=== PATIENT | male | born 1970 | race Caucasian/White ===

== ENCOUNTER 2018-01-29 20:19 | Inpatient (IN) ==
--- NOTE | 2018-01-29 20:57 | ED ---
HPI General Chief complaint: Altered Mental Status Stated complaint: Evac/Ams Time Seen by Provider: 01/29/18 20:36 Source: patient and EMS Mode of arrival: EMS Limitations: altered mental status History of Present Illness HPI narrative: The patient is a 47 year old male who presents to the [facility] emergency department with a history of altered mentation noted by his family this evening prior to them calling ambulance services. The patient is visiting from out of town. The patient has a history of cirrhosis and according to ambulance services 2 weeks ago. The patient's family reported to ambulance services that the patient had been in bed all day at the [facility]. When they came back to check on him he had a decreased level of consciousness, therefore ambulance services were called. The patient on arrival has his eyes open with generalized weakness. The patient is able to state his name, however otherwise he is not able to provide any significant history. The patient's past medical history review of systems is difficult to obtain in this patient who appears confused and grossly jaundiced. The patient has not been at this facility in the past. The patient denies any recent alcohol use. He is unable to tell me when he last drank any alcohol. He cannot recall when he last took his medications. Fortunately, list of the patient's medications was provided to ambulance services by the family. 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 Medical History Medical History Cirrhosis (Acute) Social History Social History Substance History: Past History Second Hand Smoke Exposure: No Smoking Status: Unknown if ever smoked How Often Do You Have a Drink Containing Alcohol: Unable to Obtain Recent Travel in [facility] within the Last 8 Weeks: Yes Recent Out of Country Travel within the Last 8 Weeks: No Exam Const General: cooperative, ill appearing and other (Jaundiced appearing) Nutritional Appearance: well nourished Orientation: awake and confused Limitations: altered mental status [facility] Head: normocephalic and atraumatic Nose: no nasal discharge and no epistaxis Mouth: moist mucous membranes Eyes Sclera: scleral abnormality (The patient has scleral icterus noted.) Pupils: PERRL Neck Neck: trachea midline and no JVD Resp Effort & Inspection: no use of accessory muscles Auscultation: clear to auscultation bilaterally Cardio Rate: regular rate Rhythm: regular rhythm Heart Sounds: no murmurs GI Inspection: non-distended and other (The patient has a positive [place] sign with ecchymosis periumbilical.) Palpation: soft, hepatosplenomegaly and nontender Auscultation: normal bowel sounds Back/Spine/Pelvis Back: no CVA tenderness Skin General: dry skin (warm), turgor decreased and other (Jaundiced appearing) Neuro General: awake, confused and other (The patient is uncooperative with formal neurologic testing due to confusion and generalized weakness. He is able to move his arms and legs with equal strength that is diminished diffusely. The patient has no facial asymmetry. The patient is able to state his name, however he is not oriented to place, time, or situation otherwise. No tremulousness.) Extrem General: normal to inspection, no clubbing, no cyanosis and no edema Psych Mood: congruent mood Affect: normal affect Judgment: judgment good Course Hospital Course: During the course of the patient's emergency department visit, the patient's history, examination, and differential diagnosis were reviewed with the patient. The patient was placed on a cardiac sonographer with oximetry and frequent blood pressure monitoring. The patient had IV access obtained and blood work sent for analysis. A Cherry catheter will be placed to gravity. The patient was initially provided normal saline at 500 mL bolus 1. Reevaluation(s) Reevaluation #1: The patient was reexamined and is more awake and alert. The patient does continue to be confused. The patient's results were discussed with him including the plan for admission and he is agreeable with the plan Consultations Consultation #1: The patient's case including history, pertinent physical examination findings, and laboratory studies were discussed with Dr. Velazquez. It was agreed that the patient would be admitted to the hospitalist service. Time: 23:30 Initial Documented Vital Signs Temperature 98.2 F 01/29/18 20:39 Pulse Rate 76 01/29/18 20:39 Respiratory Rate 10 L 01/29/18 20:39 Blood Pressure 133/62 01/29/18 20:39 Pulse Oximetry 100 01/29/18 20:39 Last Documented Vital Signs Temperature 97.5 F L 01/30/18 18:46 Pulse Rate 80 01/30/18 19:56 Respiratory Rate 8 L 01/30/18 19:30 Blood Pressure 132/65 01/30/18 19:30 Pulse Oximetry 100 01/30/18 19:30 Critical Care Time Critical Care Time: Yes Total Critical Care Time: 34 Attestation: Aggregate critical care time was 34 minutes. Time to perform other separately billable procedures was not included in the critical care time. My time did not include minutes spent treating any other patients simultaneously or on activities that did not directly contribute to the patient's treatment. The services I provided to this patient were to treat and/or prevent clinically significant deterioration that could result in: Progression of encephalopathy, versus respiratory failure, versus cardiovascular collapse I provided critical care services requiring my management, as noted below: Chart data review, documentation time, medication orders and management, vital sign assessments/reviewing monitor data, ordering and reviewing lab tests, ordering and interpreting/reviewing x-rays and diagnostic studies, care of the patient and discussion of the patient with the admitting physicians. Medical Decision Making MDM Narrative Medical decision making narrative: The patient's diagnostic workup began with and evaluation for altered mentation to include an ammonia level, lactic acid with blood cultures, CT scan of the brain, chest x-ray, urinalysis by catheterization. The patient's blood sugar according to ambulance services was 127, ruling out hypoglycemia as a cause of his altered mentation. The patient's laboratory studies are remarkable for a hemoglobin is 9.3a white count of 5.5, platelets 49, and a differential remarkable for neutrophil predominance of 78.7. Lactic acid is 2.2, ammonia level is 178 which could be the cause of the patient's altered mentation. The patient was given lactulose p.o. Lipase is 282. A chest x-ray that shows no acute cardiopulmonary process. CMP is remarkable for a total bilirubin of 23.5, sodium 121, glucose 116, potassium 2.8, GFR 74, chloride 83, BUN 41, creatinine 1.07, anion gap 17, alk phos 118, ALT 92, AST is 80, PT 18.7, INR 1.8, PTT 40.1, urinalysis shows small occult blood, few mucus, small bilirubin, otherwise unremarkable. Urine drug screen is negative. The patient will be given p.o. potassium and started on IV fluids with potassium supplementation. The patient will be admitted to the hospital for evaluation of AMS, hepatic encephalopathy, hyponatremia, hypokalemia, and lacunar infarct. I had a lengthy discussion with the admitting hospitalist regarding giving aspirin for the patient's subacute lacunar infarct. She requested that I hold the aspirin at this time as the patient is thrombocytopenic with a coagulopathy related to his liver disease. The patient's results were discussed with the patient, including the plan of care. I explained that further testing and/ or monitoring is indicated based on the patient's history, examination, and/ or laboratory findings. Therefore, I recommended admission for additional evaluation. The patient expressed understanding and was agreeable with this plan. The patient was admitted to the hospital in guarded condition and sent to a bed under the care of [facility] service. Medical Records Medical records reviewed: Yes I reviewed the patient's medical records. Lab Data Lab results reviewed: Yes I reviewed the patient's lab results. Result diagrams: 01/30/18 07:42 01/30/18 07:42 Lab Results 01/29/18 01/29/18 01/29/18 Range/Units 20:45 20:45 20:45 WBC 5.5 (4.0-11.0) th/mm3 RBC 2.35 L (4.50-5.90) mil/mm3 Hgb 9.3 L (13.0-17.0) gm/dL Hct 24.9 L (39.0-51.0) % MCV 106.0 H (80.0-100.0) fL MCH 39.5 H (27.0-34.0) pg MCHC 37.2 H (32.0-36.0) % RDW 17.8 H (11.6-17.2) % Plt Count 49 L (150-450) th/mm3 MPV 8.1 (7.0-11.0) fL Prelim Diff (Auto) Slide review pending Neut % (Auto) 78.7 H (16.0-70.0) % Lymph % (Auto) 10.3 (9.0-44.0) % [place] % (Auto) 10.2 H (0.0-8.0) % Eos % (Auto) 0.6 (0.0-4.0) % Baso % (Auto) 0.2 (0.0-2.0) % Neut # (Auto) 4.4 (1.8-7.7) th/mm3 Lymph # (Auto) 0.6 L (1.0-4.8) th/mm3 [place] # (Auto) 0.6 (0.0-0.9) th/mm3 Eos # (Auto) 0.0 (0.0-0.4) th/mm3 Baso # (Auto) 0.0 (0.0-0.2) th/mm3 WBC Differential . Diff Scan Auto diff confirmed Differential Comment . Ovalocytes (None) Melissa Cells 1+ H (None) Acanthocytes (Spur) 1+ H (None) Keratocytes 1+ H (None) PT 18.7 H (9.8-11.6) sec INR 1.8 Ratio APTT 40.1 H (24.3-30.1) sec Puncture Site Patient Temperature O2 Saturation (90-100) % ABG pH (7.380-7.420) ABG pCO2 (38-42) mmHg ABG pO2 (61-120) mmHg ABG HCO3 (22-26) mmol/L ABG O2 Content (12.0-20.0) Vol % ABG Base Excess (-2-2) mmol/L ABG Methemoglobin (0-2) % Michael Test Hemoglobin (12.0-16.0) G/DL Carboxyhemoglobin (0-4) % Inspired O2 % Critical Value Sodium (136-145) meq/L Potassium (3.5-5.1) meq/L Chloride (98-107) meq/L Carbon Dioxide (21.0-32.0) meq/L Anion Gap (5-15) meq/L BUN (7-18) mg/dL Creatinine (0.60-1.30) mg/dL Estimated GFR (>89) mL/min POC Glucose (68-110) mg/dl Random Glucose (74-106) mg/dL Lactic Acid (0.4-2.0) mmol/L Calcium (8.5-10.1) mg/dL Magnesium (1.5-2.5) mg/dL Total Bilirubin (0.2-1.0) mg/dL AST (15-37) U/L ALT (12-78) U/L Alkaline Phosphatase (45-117) U/L Ammonia (11-32) mcmol/L Total Creatine Kinase (39-308) U/L Troponin I (0.02-0.05) ng/mL Total Protein (6.4-8.2) g/dL Albumin (3.4-5.0) g/dL Lipase (73-393) U/L TSH 0.853 (0.358-3.740) uIU/mL Urine Color (Yellw/Straw) Urine Clarity (Clear) Urine pH (5.0-8.5) Ur Specific [place] (1.002-1.035) Urine Protein (Neg-Trace) mg/dL Urine Glucose (UA) (Negative) mg/dL Urine Ketones (Negative) mg/dL Urine Occult Blood (Negative) Urine Nitrate (Negative) Urine Bilirubin (Negative) Urine Ictotest (Negative) Urine Urobilinogen (Less than 2) mg/dL Ur Leukocyte Esterase (Negative) Urine RBC (0-3) /hpf Urine WBC (0-5) /hpf Urine Mucus (Occasional) /lpf Micro UA Comment Urine Culture Comments Urine Opiates Screen (Neg) Ur Barbiturates Screen (Neg) Ur Amphetamines Screen (Neg) U Benzodiazepines Scrn (Neg) Urine Cocaine Screen (Neg) U Cannabinoids Screen (Neg) Serum Alcohol Less than 3 (0-5) mg/dL 01/29/18 01/29/18 01/29/18 Range/Units 20:45 20:45 20:53 WBC (4.0-11.0) th/mm3 RBC (4.50-5.90) mil/mm3 Hgb (13.0-17.0) gm/dL Hct (39.0-51.0) % MCV (80.0-100.0) fL MCH (27.0-34.0) pg MCHC (32.0-36.0) % RDW (11.6-17.2) % Plt Count (150-450) th/mm3 MPV (7.0-11.0) fL Prelim Diff (Auto) Neut % (Auto) (16.0-70.0) % Lymph % (Auto) (9.0-44.0) % [place] % (Auto) (0.0-8.0) % Eos % (Auto) (0.0-4.0) % Baso % (Auto) (0.0-2.0) % Neut # (Auto) (1.8-7.7) th/mm3 Lymph # (Auto) (1.0-4.8) th/mm3 [place] # (Auto) (0.0-0.9) th/mm3 Eos # (Auto) (0.0-0.4) th/mm3 Baso # (Auto) (0.0-0.2) th/mm3 WBC Differential Diff Scan Differential Comment Ovalocytes (None) [place] Cells (None) Acanthocytes (Spur) (None) Keratocytes (None) PT (9.8-11.6) sec INR Ratio APTT (24.3-30.1) sec Puncture Site Patient Temperature O2 Saturation (90-100) % ABG pH (7.380-7.420) ABG pCO2 (38-42) mmHg ABG pO2 (61-120) mmHg ABG HCO3 (22-26) mmol/L ABG O2 Content (12.0-20.0) Vol % ABG Base Excess (-2-2) mmol/L ABG Methemoglobin (0-2) % Mcihael Test Hemoglobin (12.0-16.0) G/DL Carboxyhemoglobin (0-4) % Inspired O2 % Critical Value Sodium 121 L* (136-145) meq/L Potassium 2.8 L* (3.5-5.1) meq/L Chloride 83 L (98-107) meq/L Carbon Dioxide 21.5 (21.0-32.0) meq/L Anion Gap 17 H (5-15) meq/L BUN 41 H (7-18) mg/dL Creatinine 1.07 (0.60-1.30) mg/dL Estimated GFR 74 L (>89) mL/min POC Glucose (68-110) mg/dl Random Glucose 116 H (74-106) mg/dL Lactic Acid 2.2 H (0.4-2.0) mmol/L Calcium 7.6 L (8.5-10.1) mg/dL Magnesium (1.5-2.5) mg/dL Total Bilirubin 23.5 H (0.2-1.0) mg/dL AST 80 H (15-37) U/L ALT 92 H (12-78) U/L Alkaline Phosphatase 118 H (45-117) U/L Ammonia (11-32) mcmol/L Total Creatine Kinase 33 L (39-308) U/L Troponin I 0.03 (0.02-0.05) ng/mL Total Protein 4.6 L (6.4-8.2) g/dL Albumin 2.2 L (3.4-5.0) g/dL Lipase 282 (73-393) U/L TSH (0.358-3.740) uIU/mL Urine Color (Yellw/Straw) Urine Clarity (Clear) Urine pH (5.0-8.5) Ur Specific [place] (1.002-1.035) Urine Protein (Neg-Trace) mg/dL Urine Glucose (UA) (Negative) mg/dL Urine Ketones (Negative) mg/dL Urine Occult Blood (Negative) Urine Nitrate (Negative) Urine Bilirubin (Negative) Urine Ictotest (Negative) Urine Urobilinogen (Less than 2) mg/dL Ur Leukocyte Esterase (Negative) Urine RBC (0-3) /hpf Urine WBC (0-5) /hpf Urine Mucus (Occasional) /lpf Micro UA Comment Urine Culture Comments Urine Opiates Screen (Neg) Ur Barbiturates Screen (Neg) Ur Amphetamines Screen (Neg) U Benzodiazepines Scrn (Neg) Urine Cocaine Screen (Neg) U Cannabinoids Screen (Neg) Serum Alcohol (0-5) mg/dL 01/29/18 01/29/18 01/29/18 Range/Units 20:53 21:30 21:30 WBC (4.0-11.0) th/mm3 RBC (4.50-5.90) mil/mm3 Hgb (13.0-17.0) gm/dL Hct (39.0-51.0) % MCV (80.0-100.0) fL MCH (27.0-34.0) pg MCHC (32.0-36.0) % RDW (11.6-17.2) % Plt Count (150-450) th/mm3 MPV (7.0-11.0) fL Prelim Diff (Auto) Neut % (Auto) (16.0-70.0) % Lymph % (Auto) (9.0-44.0) % [place] % (Auto) (0.0-8.0) % Eos % (Auto) (0.0-4.0) % Baso % (Auto) (0.0-2.0) % Neut # (Auto) (1.8-7.7) th/mm3 Lymph # (Auto) (1.0-4.8) th/mm3 [place] # (Auto) (0.0-0.9) th/mm3 Eos # (Auto) (0.0-0.4) th/mm3 Baso # (Auto) (0.0-0.2) th/mm3 WBC Differential Diff Scan Differential Comment Ovalocytes (None) Melissa Cells (None) Acanthocytes (Spur) (None) Keratocytes (None) PT (9.8-11.6) sec INR Ratio APTT (24.3-30.1) sec Puncture Site Patient Temperature O2 Saturation (90-100) % ABG pH (7.380-7.420) ABG pCO2 (38-42) mmHg ABG pO2 (61-120) mmHg ABG HCO3 (22-26) mmol/L ABG O2 Content (12.0-20.0) Vol % ABG Base Excess (-2-2) mmol/L ABG Methemoglobin (0-2) % Michael Test Hemoglobin (12.0-16.0) G/DL Carboxyhemoglobin (0-4) % Inspired O2 % Critical Value Sodium (136-145) meq/L Potassium (3.5-5.1) meq/L Chloride (98-107) meq/L Carbon Dioxide (21.0-32.0) meq/L Anion Gap (5-15) meq/L BUN (7-18) mg/dL Creatinine (0.60-1.30) mg/dL Estimated GFR (>89) mL/min POC Glucose (68-110) mg/dl Random Glucose (74-106) mg/dL Lactic Acid (0.4-2.0) mmol/L Calcium (8.5-10.1) mg/dL Magnesium (1.5-2.5) mg/dL Total Bilirubin (0.2-1.0) mg/dL AST (15-37) U/L ALT (12-78) U/L Alkaline Phosphatase (45-117) U/L Ammonia 178 H (11-32) mcmol/L Total Creatine Kinase (39-308) U/L Troponin I (0.02-0.05) ng/mL Total Protein (6.4-8.2) g/dL Albumin (3.4-5.0) g/dL Lipase (73-393) U/L TSH (0.358-3.740) uIU/mL Urine Color [place] (Yellw/Straw) Urine Clarity Clear (Clear) Urine pH 6.0 (5.0-8.5) Ur Specific [place] 1.011 (1.002-1.035) Urine Protein Negative (Neg-Trace) mg/dL Urine Glucose (UA) Negative (Negative) mg/dL Urine Ketones Negative (Negative) mg/dL Urine Occult Blood Small H (Negative) Urine Nitrate Negative (Negative) Urine Bilirubin Small H (Negative) Urine Ictotest Positive H (Negative) Urine Urobilinogen 4 or greater (Less than 2) mg/dL Ur Leukocyte Esterase Negative (Negative) Urine RBC Less than 1 (0-3) /hpf Urine WBC 1 (0-5) /hpf Urine Mucus Few H (Occasional) /lpf Micro UA Comment Cath-culture not ind Urine Culture Comments Cath-cult not ind Urine Opiates Screen Neg (Neg) Ur Barbiturates Screen Neg (Neg) Ur Amphetamines Screen Neg (Neg) U Benzodiazepines Scrn Neg (Neg) Urine Cocaine Screen Neg (Neg) U Cannabinoids Screen Neg (Neg) Serum Alcohol (0-5) mg/dL 01/30/18 01/30/18 01/30/18 Range/Units 00:15 07:42 07:42 WBC 6.1 (4.0-11.0) th/mm3 RBC 2.51 L (4.50-5.90) mil/mm3 Hgb 9.7 L (13.0-17.0) gm/dL Hct 26.4 L (39.0-51.0) % MCV 105.5 H (80.0-100.0) fL MCH 38.8 H (27.0-34.0) pg MCHC 36.8 H (32.0-36.0) % RDW 18.5 H (11.6-17.2) % Plt Count 53 L (150-450) th/mm3 MPV 7.7 (7.0-11.0) fL Prelim Diff (Auto) Slide review pending Neut % (Auto) 79.1 H (16.0-70.0) % Lymph % (Auto) 11.0 (9.0-44.0) % [place] % (Auto) 9.5 H (0.0-8.0) % Eos % (Auto) 0.2 (0.0-4.0) % Baso % (Auto) 0.2 (0.0-2.0) % Neut # (Auto) 4.8 (1.8-7.7) th/mm3 Lymph # (Auto) 0.7 L (1.0-4.8) th/mm3 [place] # (Auto) 0.6 (0.0-0.9) th/mm3 Eos # (Auto) 0.0 (0.0-0.4) th/mm3 Baso # (Auto) 0.0 (0.0-0.2) th/mm3 WBC Differential . Diff Scan Auto diff confirmed Differential Comment . Ovalocytes 1+ H (None) [place] Cells 1+ H (None) Acanthocytes (Spur) 2+ H (None) Keratocytes 1+ H (None) PT 19.2 H (9.8-11.6) sec INR 1.9 Ratio APTT (24.3-30.1) sec Puncture Site Patient Temperature O2 Saturation (90-100) % ABG pH (7.380-7.420) ABG pCO2 (38-42) mmHg ABG pO2 (61-120) mmHg ABG HCO3 (22-26) mmol/L ABG O2 Content (12.0-20.0) Vol % ABG Base Excess (-2-2) mmol/L ABG Methemoglobin (0-2) % Michael Test Hemoglobin (12.0-16.0) G/DL Carboxyhemoglobin (0-4) % Inspired O2 % Critical Value Sodium (136-145) meq/L Potassium (3.5-5.1) meq/L Chloride (98-107) meq/L Carbon Dioxide (21.0-32.0) meq/L Anion Gap (5-15) meq/L BUN (7-18) mg/dL Creatinine (0.60-1.30) mg/dL Estimated GFR (>89) mL/min POC Glucose (68-110) mg/dl Random Glucose (74-106) mg/dL Lactic Acid 1.8 (0.4-2.0) mmol/L Calcium (8.5-10.1) mg/dL Magnesium (1.5-2.5) mg/dL Total Bilirubin (0.2-1.0) mg/dL AST (15-37) U/L ALT (12-78) U/L Alkaline Phosphatase (45-117) U/L Ammonia (11-32) mcmol/L Total Creatine Kinase (39-308) U/L Troponin I (0.02-0.05) ng/mL Total Protein (6.4-8.2) g/dL Albumin (3.4-5.0) g/dL Lipase (73-393) U/L TSH (0.358-3.740) uIU/mL Urine Color (Yellw/Straw) Urine Clarity (Clear) Urine pH (5.0-8.5) Ur Specific [place] (1.002-1.035) Urine Protein (Neg-Trace) mg/dL Urine Glucose (UA) (Negative) mg/dL Urine Ketones (Negative) mg/dL Urine Occult Blood (Negative) Urine Nitrate (Negative) Urine Bilirubin (Negative) Urine Ictotest (Negative) Urine Urobilinogen (Less than 2) mg/dL Ur Leukocyte Esterase (Negative) Urine RBC (0-3) /hpf Urine WBC (0-5) /hpf Urine Mucus (Occasional) /lpf Micro UA Comment Urine Culture Comments Urine Opiates Screen (Neg) Ur Barbiturates Screen (Neg) Ur Amphetamines Screen (Neg) U Benzodiazepines Scrn (Neg) Urine Cocaine Screen (Neg) U Cannabinoids Screen (Neg) Serum Alcohol (0-5) mg/dL 01/30/18 01/30/18 01/30/18 Range/Units 07:42 10:23 17:43 WBC (4.0-11.0) th/mm3 RBC (4.50-5.90) mil/mm3 Hgb (13.0-17.0) gm/dL Hct (39.0-51.0) % MCV (80.0-100.0) fL MCH (27.0-34.0) pg MCHC (32.0-36.0) % RDW (11.6-17.2) % Plt Count (150-450) th/mm3 MPV (7.0-11.0) fL Prelim Diff (Auto) Neut % (Auto) (16.0-70.0) % Lymph % (Auto) (9.0-44.0) % [place] % (Auto) (0.0-8.0) % Eos % (Auto) (0.0-4.0) % Baso % (Auto) (0.0-2.0) % Neut # (Auto) (1.8-7.7) th/mm3 Lymph # (Auto) (1.0-4.8) th/mm3 [place] # (Auto) (0.0-0.9) th/mm3 Eos # (Auto) (0.0-0.4) th/mm3 Baso # (Auto) (0.0-0.2) th/mm3 WBC Differential Diff Scan Differential Comment Ovalocytes (None) [place] Cells (None) Acanthocytes (Spur) (None) Keratocytes (None) PT (9.8-11.6) sec INR Ratio APTT (24.3-30.1) sec Puncture Site Right radial Patient Temperature 98.6 O2 Saturation 95 (90-100) % ABG pH 7.54 H* (7.380-7.420) ABG pCO2 26 L (38-42) mmHg ABG pO2 88 (61-120) mmHg ABG HCO3 22 (22-26) mmol/L ABG O2 Content 12.0 (12.0-20.0) Vol % ABG Base Excess -0.5 (-2-2) mmol/L ABG Methemoglobin 0.0 (0-2) % Michael Test Present Hemoglobin 8.9 L (12.0-16.0) G/DL Carboxyhemoglobin 3.3 (0-4) % Inspired O2 21 % Critical Value Yes Sodium 125 L (136-145) meq/L Potassium 3.1 L (3.5-5.1) meq/L Chloride 90 L (98-107) meq/L Carbon Dioxide 22.5 (21.0-32.0) meq/L Anion Gap 13 (5-15) meq/L BUN 44 H (7-18) mg/dL Creatinine 1.24 (0.60-1.30) mg/dL Estimated GFR 62 L (>89) mL/min POC Glucose 135 H (68-110) mg/dl Random Glucose 115 H (74-106) mg/dL Lactic Acid (0.4-2.0) mmol/L Calcium 7.7 L (8.5-10.1) mg/dL Magnesium 2.4 (1.5-2.5) mg/dL Total Bilirubin 23.6 H (0.2-1.0) mg/dL AST 79 H (15-37) U/L ALT 95 H (12-78) U/L Alkaline Phosphatase 120 H (45-117) U/L Ammonia (11-32) mcmol/L Total Creatine Kinase (39-308) U/L Troponin I (0.02-0.05) ng/mL Total Protein 4.7 L (6.4-8.2) g/dL Albumin 2.3 L (3.4-5.0) g/dL Lipase (73-393) U/L TSH (0.358-3.740) uIU/mL Urine Color (Yellw/Straw) Urine Clarity (Clear) Urine pH (5.0-8.5) Ur Specific [place] (1.002-1.035) Urine Protein (Neg-Trace) mg/dL Urine Glucose (UA) (Negative) mg/dL Urine Ketones (Negative) mg/dL Urine Occult Blood (Negative) Urine Nitrate (Negative) Urine Bilirubin (Negative) Urine Ictotest (Negative) Urine Urobilinogen (Less than 2) mg/dL Ur Leukocyte Esterase (Negative) Urine RBC (0-3) /hpf Urine WBC (0-5) /hpf Urine Mucus (Occasional) /lpf Micro UA Comment Urine Culture Comments Urine Opiates Screen (Neg) Ur Barbiturates Screen (Neg) Ur Amphetamines Screen (Neg) U Benzodiazepines Scrn (Neg) Urine Cocaine Screen (Neg) U Cannabinoids Screen (Neg) Serum Alcohol (0-5) mg/dL Imaging Data Radiologist's impression: Chest X-Ray 01/29/18 20:46 CONCLUSION: No acute cardiopulmonary process. Head CT 01/29/18 20:46 CONCLUSION: 1. Small area of low density in the medial right basal ganglia likely related to a recent lacunar infarct. 2. Mild area of decreased density in the left cerebral white matter representing either a prior lacunar infarct or an area of demyelination. 3. No acute areas of hemorrhage or mass effect is seen. Carotid Doppler Study 01/30/18 00:00 CONCLUSION: No evidence of flow-limiting carotid stenosis. ECG Data Attestation: I personally reviewed and interpreted this ECG as follows: Interpretation: The patient had an EKG done on arrival that shows a sinus rhythm with occasional ventricular premature complexes heart rate of 78, QRS duration 114 ms, QTC [address] segment elevation. Discharge Plan Discharge Disposition Patient Disposition: 30 Still Patient Discharge Details Diagnosis: Altered mental status, Acute hepatic encephalopathy, Acute hyponatremia, Acute hypokalemia, Lacunar infarction Physicians Team ED Provider: Shwetha Leblanc Primary Care Provider: Primary Care Lala Mauricio Attending Provider: Corby Rivera Other Providers: Mike Martel ; Killian Dyer ; Rajinder Melendez ; Jorge Alberto Klein Status ED Status: Left Department Discharge Information Discharge Date/Time: 01/30/18 18:59
[2018-01-29] MEDS ORDERED: Sod Chloride 0.9% Inj 1,000 ML IV.CONT SCH (21:00)
[2018-01-29 21:27] LABS: Baso % (Auto) 0.2 % (0.0-2.0); Eos % (Auto) 0.6 % (0.0-4.0); Hematocrit 24.9 % (39.0-51.0); Hemoglobin 9.3 gm/dL (13.0-17.0); Lymph # (Auto) 0.6 th/mm3 (1.0-4.8); Lymph % (Auto) 10.3 % (9.0-44.0); Mean Corpuscular Hemoglobin 39.5 pg (27.0-34.0); Mean Platelet Volume 8.1 fL (7.0-11.0); Mono # (Auto) 0.6 th/mm3 (0.0-0.9); Mono % (Auto) 10.2 % (0.0-8.0); Neut # (Auto) 4.4 th/mm3 (1.8-7.7); Neut % (Auto) 78.7 % (16.0-70.0); Platelet Count 49 th/mm3 (150-450); Red Blood Count 2.35 mil/mm3 (4.50-5.90); Red Cell Distribution Width 17.8 % (11.6-17.2); White Blood Count 5.5 th/mm3 (4.0-11.0)
--- NOTE | 2018-01-29 21:27 | XR ---
EXAM DATE: 01/29/2018 9:20 PM EDT AGE/SEX: 47 years / Male INDICATIONS: Shortness of breath. CLINICAL DATA: This is the patient's initial encounter. Patient reports that signs and symptoms have been present for 1 day and indicates a pain score of Nonresponsive. MEDICAL/SURGICAL HISTORY: Cirrhosis. None. COMPARISON: No prior exams available for comparison. FINDINGS: A single AP view of the chest demonstrates the lungs to be symmetrically aerated without evidence of mass, infiltrate or effusion. The cardiomediastinal contours are unremarkable. Osseous structures a re intact. CONCLUSION: No acute cardiopulmonary process. Electronically signed by: Kelvin Ortega MD 01/29/2018 9:26 PM EDT
[2018-01-29 21:29] LABS: Mean Corpuscular HGB Conc 37.2 % (32.0-36.0)
[2018-01-29 21:48] LABS: Thyroid Stimulating Hormone 0.853 uIU/mL (0.358-3.740)
[2018-01-29 22:00] LABS: Activated Partial Thrombo Time 40.1 sec (24.3-30.1); INR 1.8 Ratio; Prothrombin Time 18.7 sec (9.8-11.6)
[2018-01-29 22:02] LABS: Burr Cells 1+
[2018-01-29 22:06] LABS: Acanthocytes 1+
--- NOTE | 2018-01-29 22:17 | CT ---
EXAM DATE: 01/29/2018 10:11 PM EDT AGE/SEX: 47 years / Male INDICATIONS: Altered mental status. CLINICAL DATA: This is the patient's initial encounter. Patient reports that signs and symptoms have been present for 1 day and indicates a pain score of Nonresponsive. MEDICAL/SURGICAL HISTORY: Cirrhosis. jaundice None. RADIATION DOSE: 35.93 CTDI (mGy) COMPARISON: No prior exams available for comparison. TECHNIQUE: CT of the head without contrast. Using automated exposure control and adjustment of the mA and/or kV according to patient size, radiation dose was kept as low as reasonably achievable to ob tain optimal diagnostic quality images. DICOM format image data is available electronically for revi ew and comparison. FINDINGS: Cerebrum: There is a small 0.7 cm hypodensity seen in the medial aspect of the right basal ganglia. There is a 1 cm area of low density seen in the left cerebral white matter. The ventricles are normal for age. No evidence of midline shift, mass lesion, hemorrhage. No extraaxial fluid collections ar e seen. Posterior Fossa: The cerebellum and brainstem are intact. The 4th ventricle is midline. The cerebe llopontine angle is unremarkable. Extracranial: The visualized portion of the orbits is intact. Skull: The calvaria is intact. No evidence of skull fracture. CONCLUSION: 1. Small area of low density in the medial right basal ganglia likely related to a recent lacunar in farct. 2. Mild area of decreased density in the left cerebral white matter representing either a prior lacu alicia infarct or an area of demyelination. 3. No acute areas of hemorrhage or mass effect is seen. Electronically signed by: Kelvin Ortega MD 01/29/2018 10:16 PM EDT
[2018-01-29 22:19] LABS: Amphetamine Screen,Urine Neg (Neg); Barbiturate Screen,Urine Neg (Neg); Cannabinoid Screen,Urine Neg (Neg); Cocaine Screen,Urine Neg (Neg)
[2018-01-29 22:20] LABS: Bilirubin,Urine Small (Negative); Clarity,Urine Clear (Clear); Color,Urine Amber (Yellw/Straw); Glucose,Urine (UA) Negative (Negative); Ictotest,Urine Positive (Negative); Leukocyte Esterase,Urine Negative (Negative); Mucus,Urine Few /lpf (Occasional); Nitrite,Urine Negative (Negative); Specific Gravity,Urine 1.011 (1.002-1.035); Urobilinogen,Urine 4 or Greater mg/dL (Less than 2)
[2018-01-29 22:22] LABS: Opiate Screen,Urine Neg (Neg)
[2018-01-29 22:50] LABS: Alanine Aminotransferase 92 U/L (12-78); Albumin 2.2 g/dL (3.4-5.0); Alkaline Phosphatase 118 U/L (45-117); Anion Gap 17 meq/L (5-15); Aspartate Aminotransferase 80 U/L (15-37); Blood Urea Nitrogen 41 mg/dL (7-18); Calcium 7.6 mg/dL (8.5-10.1); Carbon Dioxide 21.5 meq/L (21.0-32.0); Chloride 83 meq/L (98-107); Glomerular Filtration Rate 74 mL/min (>89); Glucose,Random 116 mg/dL (74-106); Total Protein 4.6 g/dL (6.4-8.2); Troponin I 0.03 ng/mL (0.02-0.05)
[2018-01-29 22:54] LABS: Creatine Kinase 33 U/L (39-308)
[2018-01-29 22:57] LABS: Potassium 2.8 meq/L (3.5-5.1); Sodium 121 meq/L (136-145)
[2018-01-29] MEDS ORDERED: Potassium Chloride 25 MEQ Effervescent Tablet PO ONE (23:09)
[2018-01-29] MEDS ORDERED: Dextrose 5%/NaCl 0.45% Inj 500 ML IV.SIG ONE (23:36)
[2018-01-29] MEDS ORDERED: Temazepam 15 MG Capsule PO PRN (23:36)
[2018-01-29] MEDS ORDERED: Bisacodyl 10 MG Supp RECTAL PRN (23:36)
--- NOTE | 2018-01-29 23:39 | P.HPIM ---
History of Present Illness Primary Care Physician: No Primary Care Physician History of Present Illness: This is a 47-year-old male with a PMH of Cirrhosis who was brought to the ER for AMS. [place], [place]/ and family. at bedside states pt noted to be more lethargic today, reports he is non-compliant w/ Lactulose, does not follow w/ GI doctor back home. Previous h/o Alcohol Abuse, however states he quit. Unable to obtain much history from patient due to AMS, however he is able to answer few questions. On arrival, BP 133/62, HR 76, O2 sat 100% on 2L NC, Afebrile. Hemoglobin 9.3, platelets 49, no previous labs for comparison. INR 1.8. Na 121. K+ 2.8. Lactic Acid 2.2. Ammonia 178. Total Bili 23.5. CT Head w/ small area low density medial right basal ganglia related to recent lacunar infarct, left cerebral infarct vs demyelination. - Diagnosis (1) Hepatic encephalopathy (2) Cirrhosis (3) Hyponatremia (4) Hypokalemia (5) CVA (cerebral vascular accident) (6) Thrombocytopenia Inpatient Certification: I certify that the inpatient services were ordered in accordance with Medicare regulations governing the order. 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 - Medical History Medical History: Medical History (Last Reviewed 01/29/18 @ 20:52 by Shwetha Leblanc MD) Cirrhosis - Tobacco History Smoking Status: Never smoker - Alcohol History How Often Do You Have a Drink Containing Alcohol: Never - Substance Use History Substance History: No History of Abuse - Travel History Recent Travel in the [place] Within the Last 8 Weeks: No Recent Travel Out of the Country Within the Last 8 Weeks: No - Immunization History Tetanus Immunization: Unsure Hx Influenza Vaccine This Season: No Medications and Allergies Active Medications: Active Medications Sodium Chloride (Ns Inj) 1,000 mls @ 125 mls/hr IV.CONT .Q8H DELANO Last Admin: 01/29/18 22:16 Dose: 125 mls/hr Potassium Chloride/Sodium Chloride (Ns + Kcl 20 Meq Inj) 1,000 mls @ 100 mls/ hr IV.CONT .Q10H DELANO Sodium Chloride (Ns Flush) 2 ml IV.FLUSH PRN PRN PRN Reason: FLUSH AFTER USING IV ACCESS Allergies Allergy/AdvReac Type Severity Reaction Status Date / Time No Known Allergies Allergy Unverified 01/29/18 20:46 Home Medications Medication Instructions Recorded Confirmed Type folic acid 1 mg PO DAILY 01/29/18 01/29/18 History furosemide 40 mg PO DAILY 01/29/18 01/29/18 History hydrochlorothiazide 25 mg PO DAILY 01/29/18 01/29/18 History lactulose 20 g PO BID 01/29/18 01/29/18 History Exam Vital signs: Vital Signs 01/29/18 20:39 01/29/18 20:47 01/29/18 23:00 Temperature 98.2 F 97.8 F Pulse Rate 76 72 Respiratory Rate 10 L 10 L Blood Pressure 133/62 134/64 Pulse Oximetry 100 100 100 Intake & Output 01/29/18 01/29/18 01/30/18 06:59 18:59 06:59 Weight 79.379 kg Narrative: PE: GENERAL: Middle-aged white male in no acute distress. at bedside. HEENT: PERRLA, EOMI. No scleral icterus or conjunctival pallor. No lid lag or facial droop. CARDIOVASCULAR: Regular rate and rhythm. No obvious murmurs to auscultation. No chest tenderness to palpation. RESPIRATORY: No obvious rhonchi or wheezing. Clear to auscultation. Breath sounds equal bilaterally. GASTROINTESTINAL: Abdomen soft, non-tender, nondistended. BS normal. MUSCULOSKELETAL: Extremities without clubbing, cyanosis, or edema. No obvious deformities. NEUROLOGICAL: Awake, but confused, answering few questions. No focal neurologic deficits. Moving both upper and lower extremities spontaneously. Results - Labs CBC & Chem 7: 01/29/18 20:45 01/29/18 20:45 Labs: Short CBC 01/29/18 Range/Units 20:45 WBC 5.5 (4.0-11.0) th/mm3 Hgb 9.3 L (13.0-17.0) gm/dL Hct 24.9 L (39.0-51.0) % Plt Count 49 L (150-450) th/mm3 BMP 01/29/18 20:45 Sodium 121 L* Potassium 2.8 L* Chloride 83 L Carbon Dioxide 21.5 BUN 41 H Creatinine 1.07 Calcium 7.6 L Cardiac Enzymes 01/29/18 Range/Units 20:45 Total Creatine Kinase 33 L (39-308) U/L Troponin I 0.03 (0.02-0.05) ng/mL Liver Function 01/29/18 Range/Units 20:45 Total Bilirubin 23.5 H (0.2-1.0) mg/dL AST 80 H (15-37) U/L ALT 92 H (12-78) U/L Alkaline Phosphatase 118 H (45-117) U/L Albumin 2.2 L (3.4-5.0) g/dL Urine 01/29/18 Range/Units 21:30 Urine Color [place] (Yellw/Straw) Urine Clarity Clear (Clear) Urine pH 6.0 (5.0-8.5) Ur Specific [place] 1.011 (1.002-1.035) Urine Protein Negative (Neg-Trace) mg/dL Urine Glucose (UA) Negative (Negative) mg/dL - Imaging Impressions Chest X-Ray 01/29/18 20:46 CONCLUSION: No acute cardiopulmonary process. Head CT 01/29/18 20:46 CONCLUSION: 1. Small area of low density in the medial right basal ganglia likely related to a recent lacunar infarct. 2. Mild area of decreased density in the left cerebral white matter representing either a prior lacunar infarct or an area of demyelination. 3. No acute areas of hemorrhage or mass effect is seen. Caprini VTE Risk Assessment Caprini VTE Risk Assessment: No/Low Risk (score <= 1) VTE Pharmacological Exception Reason: High risk for bleeding Caprini Risk Assessment Model: Point Value = 1 Point Value = 2 Point Value = 3 Point Value = 5 Age 41-60 Minor surgery BMI > 25 kg/m2 Swollen legs Varicose veins or History of unexplained or recurrent spontaneous Oral contraceptives or hormone replacement Sepsis (< 1 month) Serious lung disease, including pneumonia (< 1 month) Abnormal pulmonary function Acute myocardial infarction Congestive heart failure (< 1 month) History of inflammatory bowel disease Medical patient at bed rest Age 61-74 Arthroscopic surgery Major open surgery (> 45 min) Laparoscopic surgery (> 45 min) Malignancy Confined to bed (> 72 hours) Immobilizing plaster cast Central venous access Age >= 75 History of VTE Family history of VTE Factor V Leiden Prothrombin [id number] Lupus anticoagulant Anticardiolipin antibodies Elevated serum homocysteine Heparin-induced thrombocytopenia Other congenital or acquired thrombophilia Stroke (< 1 month) Elective arthroplasty Hip, pelvis, or leg fracture Acute spinal cord injury (< 1 month) Prophylaxis Regimen: Total Risk Factor Score Risk Level Prophylaxis Regimen 0-1 Low Early ambulation 2 Moderate Order ONE of the following: *Sequential Compression Device (SCD) *Heparin 5000 units SQ BID 3-4 Higher Order ONE of the following medications: *Heparin 5000 units SQ TID *Enoxaparin/Lovenox 40 mg SQ daily (WT < 150 kg, CrCl > 30 mL/min) *Enoxaparin/Lovenox 30 mg SQ daily (WT < 150 kg, CrCl > 10-29 mL/min) *Enoxaparin/Lovenox 30 mg SQ BID (WT < 150 kg, CrCl > 30 mL/min) AND/OR *Sequential Compression Device (SCD) 5 or more Highest Order ONE of the following medications: *Heparin 5000 units SQ TID (Preferred with Epidurals) *Enoxaparin/Lovenox 40 mg SQ daily (WT < 150 kg, CrCl > 30 mL/min) *Enoxaparin/Lovenox 30 mg SQ daily (WT < 150 kg, CrCl > 10-29 mL/min) *Enoxaparin/Lovenox 30 mg SQ BID (WT < 150 kg, CrCl > 30 mL/min) AND *Sequential Compression Device (SCD) Assessment and Plan - Assessment (1) Hepatic encephalopathy Code(s): K72.90 - Hepatic failure, unspecified without coma Status: Acute (2) Cirrhosis Code(s): K74.60 - Unspecified cirrhosis of liver Status: Acute (3) Hyponatremia Code(s): E87.1 - Hypo-osmolality and hyponatremia Status: Acute (4) Hypokalemia Code(s): E87.6 - Hypokalemia Status: Acute (5) CVA (cerebral vascular accident) Code(s): I63.9 - Cerebral infarction, unspecified Status: Acute (6) Thrombocytopenia Code(s): D69.6 - Thrombocytopenia, unspecified Status: Acute - Plan A/P: 1. Hepatic Encephalopathy: h/o Cirrhosis, non-compliant w/ medications, Ammonia 178, s/p Lactulose, remains confused/lethargic. Continue w/ Lactulose, Neuro checks. 2. Cirrhosis: h/o Cirrhosis secondary to Alcohol Abuse, does not follow w/ GI back home in [place] per , start Lactulose as above, Aldactone/Lasix, Propranolol. Total bili 24, LFTs mildly elevated. Consult GI for further eval/ recommendations as needed. 3. Hyponatremia: Na 121, likely due to cirrhosis/dehydration, monitor I/O, Seizure Precautions, repeat labs in am. 4. Hypokalemia: K+ 2.8, s/p replacement, will recheck and replace as needed. 5. CVA: CT Head w/ recent small right basal ganglia lacunar infarct, left lacunar infarct vs demyelination, images reviewed by me. Hold ASA in light of significant coagulopathy and thrombocytopenia. Consult Neurology as needed. Neuro checks. 6. Thrombocytopenia: Platelets 49, no previous labs for comparison, presumably chronic in light of extensive cirrhosis/coagulopathy. No active bleeding noted. Repeat labs in am. 7. DVT Prophylaxis: Pharmacologic contraindication due to coagulopathy/ thrombocytopenia. 8. Social work for d/c planning as needed. 9. Case discussed w/ ER physician at length, labs/records/imaging reviewed by me.
[2018-01-30 08:43] LABS: INR 1.9 Ratio; Prothrombin Time 19.2 sec (9.8-11.6)
--- NOTE | 2018-01-30 08:50 | P.PN ---
Subjective Interval history: F/U encephalopathy. Comatose no gag reflex. Dw pt does not want to be intubated. Physical Exam Vital signs: Vital Signs 01/29/18 20:39 01/29/18 20:47 01/29/18 23:00 Temperature 98.2 F 97.8 F Pulse Rate 76 72 74 Respiratory Rate 10 L 10 L 12 Blood Pressure 133/62 134/64 126/61 Pulse Oximetry 100 100 100 01/30/18 01:00 01/30/18 05:00 01/30/18 08:24 Temperature 98.7 F Pulse Rate 76 80 78 Respiratory Rate 10 L 10 L 17 Blood Pressure 116/58 L 113/59 L 114/56 L Pulse Oximetry 100 Intake & Output 01/29/18 01/30/18 01/30/18 18:59 06:59 18:59 Weight 79.379 kg Narrative: GENERAL: Middle-aged white male who is comatose HEENT: + scleral icterus. No lid lag or facial droop. CARDIOVASCULAR: Regular rate and rhythm. No obvious murmurs to auscultation. No chest tenderness to palpation. RESPIRATORY: No obvious rhonchi or wheezing. Clear to auscultation. Decreased Breath sounds equal bilaterally. GASTROINTESTINAL: Abdomen soft, non-tender, nondistended. BS normal. MUSCULOSKELETAL: Extremities without clubbing, cyanosis, obvious deformities. NEUROLOGICAL: Comatose GCS 7 - Urinary Catheter Management Indwelling Urethral Catheter Cath placed during this visit: no Reason for continuing: Hourly intake/output Results - Labs CBC & Chem 7: 01/30/18 07:42 01/30/18 07:42 Laboratory Results - last 24 hr 01/29/18 01/29/18 01/29/18 20:45 20:45 20:45 WBC 5.5 RBC 2.35 L Hgb 9.3 L Hct 24.9 L MCV 106.0 H MCH 39.5 H MCHC 37.2 H RDW 17.8 H Plt Count 49 L MPV 8.1 Prelim Diff (Auto) Slide review pending Neut % (Auto) 78.7 H Lymph % (Auto) 10.3 [place] % (Auto) 10.2 H Eos % (Auto) 0.6 Baso % (Auto) 0.2 Neut # (Auto) 4.4 Lymph # (Auto) 0.6 L [place] # (Auto) 0.6 Eos # (Auto) 0.0 Baso # (Auto) 0.0 WBC Differential . Diff Scan Auto diff confirmed Differential Comment . [place] Cells 1+ H Acanthocytes (Spur) 1+ H Keratocytes 1+ H PT 18.7 H INR 1.8 APTT 40.1 H Sodium Potassium Chloride Carbon Dioxide Anion Gap BUN Creatinine Estimated GFR Random Glucose Lactic Acid Calcium Total Bilirubin AST ALT Alkaline Phosphatase Ammonia Total Creatine Kinase Troponin I Total Protein Albumin Lipase TSH 0.853 Urine Color Urine Clarity Urine pH Ur Specific [place] Urine Protein Urine Glucose (UA) Urine Ketones Urine Occult Blood Urine Nitrate Urine Bilirubin Urine Ictotest Urine Urobilinogen Ur Leukocyte Esterase Urine RBC Urine WBC Urine Mucus Micro UA Comment Urine Culture Comments Urine Opiates Screen Ur Barbiturates Screen Ur Amphetamines Screen U Benzodiazepines Scrn Urine Cocaine Screen U Cannabinoids Screen Serum Alcohol Less than 3 01/29/18 01/29/18 01/29/18 20:45 20:45 20:53 WBC RBC Hgb Hct MCV MCH MCHC RDW Plt Count MPV Prelim Diff (Auto) Neut % (Auto) Lymph % (Auto) [place] % (Auto) Eos % (Auto) Baso % (Auto) Neut # (Auto) Lymph # (Auto) [place] # (Auto) Eos # (Auto) Baso # (Auto) WBC Differential Diff Scan Differential Comment [place] Cells Acanthocytes (Spur) Keratocytes PT INR APTT Sodium 121 L* Potassium 2.8 L* Chloride 83 L Carbon Dioxide 21.5 Anion Gap 17 H BUN 41 H Creatinine 1.07 Estimated GFR 74 L Random Glucose 116 H Lactic Acid 2.2 H Calcium 7.6 L Total Bilirubin 23.5 H AST 80 H ALT 92 H Alkaline Phosphatase 118 H Ammonia Total Creatine Kinase 33 L Troponin I 0.03 Total Protein 4.6 L Albumin 2.2 L Lipase 282 TSH Urine Color Urine Clarity Urine pH Ur Specific [place] Urine Protein Urine Glucose (UA) Urine Ketones Urine Occult Blood Urine Nitrate Urine Bilirubin Urine Ictotest Urine Urobilinogen Ur Leukocyte Esterase Urine RBC Urine WBC Urine Mucus Micro UA Comment Urine Culture Comments Urine Opiates Screen Ur Barbiturates Screen Ur Amphetamines Screen U Benzodiazepines Scrn Urine Cocaine Screen U Cannabinoids Screen Serum Alcohol 01/29/18 01/29/18 01/29/18 20:53 21:30 21:30 WBC RBC Hgb Hct MCV MCH MCHC RDW Plt Count MPV Prelim Diff (Auto) Neut % (Auto) Lymph % (Auto) [place] % (Auto) Eos % (Auto) Baso % (Auto) Neut # (Auto) Lymph # (Auto) [place] # (Auto) Eos # (Auto) Baso # (Auto) WBC Differential Diff Scan Differential Comment [place] Cells Acanthocytes (Spur) Keratocytes PT INR APTT Sodium Potassium Chloride Carbon Dioxide Anion Gap BUN Creatinine Estimated GFR Random Glucose Lactic Acid Calcium Total Bilirubin AST ALT Alkaline Phosphatase Ammonia 178 H Total Creatine Kinase Troponin I Total Protein Albumin Lipase TSH Urine Color [place] Urine Clarity Clear Urine pH 6.0 Ur Specific [place] 1.011 Urine Protein Negative Urine Glucose (UA) Negative Urine Ketones Negative Urine Occult Blood Small H Urine Nitrate Negative Urine Bilirubin Small H Urine Ictotest Positive H Urine Urobilinogen 4 or greater Ur Leukocyte Esterase Negative Urine RBC Less than 1 Urine WBC 1 Urine Mucus Few H Micro UA Comment Cath-culture not ind Urine Culture Comments Cath-cult not ind Urine Opiates Screen Neg Ur Barbiturates Screen Neg Ur Amphetamines Screen Neg U Benzodiazepines Scrn Neg Urine Cocaine Screen Neg U Cannabinoids Screen Neg Serum Alcohol 01/30/18 01/30/18 00:15 07:42 WBC RBC Hgb Hct MCV MCH MCHC RDW Plt Count MPV Prelim Diff (Auto) Neut % (Auto) Lymph % (Auto) [place] % (Auto) Eos % (Auto) Baso % (Auto) Neut # (Auto) Lymph # (Auto) [place] # (Auto) Eos # (Auto) Baso # (Auto) WBC Differential Diff Scan Differential Comment [place] Cells Acanthocytes (Spur) Keratocytes PT 19.2 H INR 1.9 APTT Sodium Potassium Chloride Carbon Dioxide Anion Gap BUN Creatinine Estimated GFR Random Glucose Lactic Acid 1.8 Calcium Total Bilirubin AST ALT Alkaline Phosphatase Ammonia Total Creatine Kinase Troponin I Total Protein Albumin Lipase TSH Urine Color Urine Clarity Urine pH Ur Specific [place] Urine Protein Urine Glucose (UA) Urine Ketones Urine Occult Blood Urine Nitrate Urine Bilirubin Urine Ictotest Urine Urobilinogen Ur Leukocyte Esterase Urine RBC Urine WBC Urine Mucus Micro UA Comment Urine Culture Comments Urine Opiates Screen Ur Barbiturates Screen Ur Amphetamines Screen U Benzodiazepines Scrn Urine Cocaine Screen U Cannabinoids Screen Serum Alcohol - Imaging Impressions Chest X-Ray 01/29/18 20:46 CONCLUSION: No acute cardiopulmonary process. Head CT 01/29/18 20:46 CONCLUSION: 1. Small area of low density in the medial right basal ganglia likely related to a recent lacunar infarct. 2. Mild area of decreased density in the left cerebral white matter representing either a prior lacunar infarct or an area of demyelination. 3. No acute areas of hemorrhage or mass effect is seen. - Procedures none Assessment and Plan - Assessment (1) Hepatic encephalopathy Code(s): K72.90 - Hepatic failure, unspecified without coma Status: Acute (2) Cirrhosis Code(s): K74.60 - Unspecified cirrhosis of liver Status: Acute (3) Hyponatremia Code(s): E87.1 - Hypo-osmolality and hyponatremia Status: Acute (4) Hypokalemia Code(s): E87.6 - Hypokalemia Status: Acute (5) CVA (cerebral vascular accident) Code(s): I63.9 - Cerebral infarction, unspecified Status: Acute (6) Thrombocytopenia Code(s): D69.6 - Thrombocytopenia, unspecified Status: Acute - Plan 1. Hepatic Encephalopathy: h/o Cirrhosis, non-compliant w/ medications, Ammonia 178, s/p Lactulose. He is comatose. Continue w/ Lactulose switch to enema, Neuro checks. Check ABG, pt is a DNI. Bipap prn 2. Cirrhosis: h/o Cirrhosis secondary to Alcohol Abuse, does not follow w/ GI back home in [place] per , start Lactulose as above, Aldactone, Propranolol. Consider Lasix when hyponatremia improves. Total bili 24, LFTs mildly elevated. Consult GI for further eval/recommendations as needed. 3. Hyponatremia: Na 121, likely due to cirrhosis/dehydration, monitor I/O, Seizure Precautions, repeat labs in am. 4. Hypokalemia: K+ 2.8, s/p replacement, will recheck and replace as needed. K 3.1 replace per protocol 5. CVA: CT Head w/ recent small right basal ganglia lacunar infarct, left lacunar infarct vs demyelination, images reviewed by me. Hold ASA in light of significant coagulopathy and thrombocytopenia. Consult Neurology as needed. Neuro checks. 6. Thrombocytopenia: Platelets 49, no previous labs for comparison, presumably chronic in light of extensive cirrhosis/coagulopathy. No active bleeding noted. Repeat labs in am. 7. DVT Prophylaxis: Pharmacologic contraindication due to coagulopathy/ thrombocytopenia. He is critically ill transfer to ICU. Consult CCM dw Dr Ribeiro and consult palliative care
[2018-01-30 08:57] LABS: Albumin 2.3 g/dL (3.4-5.0); Anion Gap 13 meq/L (5-15); Aspartate Aminotransferase 79 U/L (15-37); Blood Urea Nitrogen 44 mg/dL (7-18); Calcium 7.7 mg/dL (8.5-10.1); Carbon Dioxide 22.5 meq/L (21.0-32.0); Chloride 90 meq/L (98-107); Glomerular Filtration Rate 62 mL/min (>89); Glucose,Random 115 mg/dL (74-106); Potassium 3.1 meq/L (3.5-5.1); Sodium 125 meq/L (136-145)
[2018-01-30] MEDS ORDERED: Senna/Docusate Sodium 8.6/50 MG Tablet PO SCH (09:00)
[2018-01-30 09:14] LABS: Alanine Aminotransferase 95 U/L (12-78); Alkaline Phosphatase 120 U/L (45-117); Total Protein 4.7 g/dL (6.4-8.2)
[2018-01-30 09:20] LABS: Hematocrit 26.4 % (39.0-51.0); Hemoglobin 9.7 gm/dL (13.0-17.0); Mean Corpuscular Volume 105.5 fL (80.0-100.0); Red Blood Count 2.51 mil/mm3 (4.50-5.90); White Blood Count 6.1 th/mm3 (4.0-11.0)
[2018-01-30 09:21] LABS: Baso % (Auto) 0.2 % (0.0-2.0); Eos % (Auto) 0.2 % (0.0-4.0); Lymph # (Auto) 0.7 th/mm3 (1.0-4.8); Mean Corpuscular HGB Conc 36.8 % (32.0-36.0); Mean Corpuscular Hemoglobin 38.8 pg (27.0-34.0); Mean Platelet Volume 7.7 fL (7.0-11.0); Mono # (Auto) 0.6 th/mm3 (0.0-0.9); Mono % (Auto) 9.5 % (0.0-8.0); Neut # (Auto) 4.8 th/mm3 (1.8-7.7); Neut % (Auto) 79.1 % (16.0-70.0); Platelet Count 53 th/mm3 (150-450); Red Cell Distribution Width 18.5 % (11.6-17.2)
[2018-01-30 10:18] LABS: Acanthocytes 2+; Burr Cells 1+
[2018-01-30 10:19] LABS: Ovalocytes 1+
[2018-01-30] MEDS ORDERED: Magnesium Oxide 400 MG Tablet PO PRN (10:22)
[2018-01-30] MEDS ORDERED: Magnesium Sulfate Inj 4 GM in Sodium Chlor 0.9% Inj 92 ML IV.SIG PRN (10:22)
[2018-01-30] MEDS ORDERED: Sodium Phosphate Inj 30 MMOL in Sodium Chlor 0.9% Inj 250 ML IV.SIG PRN (10:22)
[2018-01-30] MEDS ORDERED: Potassium Chloride 25 MEQ Effervescent Tablet PO PRN (10:22)
[2018-01-30] MEDS ORDERED: Potassium Phosphate Inj 30 MMOL in Sodium Chlor 0.9% Inj 250 ML IV.SIG PRN (10:22)
[2018-01-30] MEDS ORDERED: Potassium Chlor 40 mEq Premix 40 MEQ/100 ML PIGGYBACK IV.SIG PRN ×2 (10:22)
[2018-01-30] MEDS ORDERED: Magnesium Sulfate Inj 2 GM in Sodium Chlor 0.9% Inj 96 ML IV.SIG PRN (10:22)
[2018-01-30] MEDS ORDERED: Potassium Chlor 20 mEq Premix 20 MEQ/100 ML PIGGYBACK IV.SIG PRN ×2 (10:22)
[2018-01-30] MEDS ORDERED: Potassium Phosphate 500 MG Soluble Tablet PO PRN ×2 (10:22)
[2018-01-30 10:37] LABS: ABG Base Excess -0.5 mmol/L (-2-2); ABG PCO2 26 mmHg (38-42); ABG PO2 88 mmHg (61-120)
[2018-01-30] MEDS: Spironolactone 50 MG Tablet PO SCH (11:19)
[2018-01-30] MEDS: Folic Acid 1 MG Tablet PO SCH (11:19)
[2018-01-30] MEDS: Propranolol 10 MG Tablet PO SCH ×2 (11:20→20:40)
--- NOTE | 2018-01-30 14:32 | US ---
EXAM DATE: 01/30/2018 1:36 PM EDT AGE/SEX: 47 years / Male INDICATIONS: Cerebrovascular accident. CLINICAL DATA: This is the patient's initial encounter. Patient reports that signs and symptoms have been present for 1 day and indicates a pain score of Nonresponsive. MEDICAL/SURGICAL HISTORY: Cirrhosis. Jaundice. Altered mentation. . None. COMPARISON: No prior exams available for comparison. VELOCITY PARAMETERS: ICA/CCA Ratio: Right 0.74 , Left 0.63 ICA: Right 129 cm/sec, Left 96 cm/sec CCA: Right 170 cm/sec, Left 151 cm/sec ECA: Right 119 cm/sec, Left 144 cm/sec Vertebral: Right 95 cm/sec antegrade, Left 91 cm/sec antegrade FINDINGS: Right Carotid: Mild arteriosclerotic plaque is visualized.The waveforms are within normal limits. Left Carotid: No significant plaque is visualized. The waveforms are within normal limits. Other: None. CONCLUSION: No evidence of flow-limiting carotid stenosis. Electronically signed by: Kelvin Padilla MD 01/30/2018 2:31 PM EDT
[2018-01-30] MEDS ORDERED: Dextrose 50% in Water 50 ML Vial IV.PUSH PRN (14:34)
--- NOTE | 2018-01-30 14:49 | P.CONCC ---
History of Present Illness Requesting Physician: Corby Rivera Reason for Consult: ENCEPHALOPATHY Primary Care Provider: No Primary Care Physician Chief Complaint: Altered mental status History of Present Illness: This is a 47-year-old male with a PMH of Cirrhosis who was brought to the ER for AMS. Pt lives in [place], visiting [place] w/ and family. at bedside states pt noted to be more lethargic today, reports he is non-compliant w/ Lactulose, does not follow w/ GI doctor back home. Previous h/o Alcohol Abuse, however states he quit. Unable to obtain much history from patient due to AMS, however he is able to answer few questions. On arrival, BP 133/62, HR 76, O2 sat 100% on 2L NC, Afebrile. Hemoglobin 9.3, platelets 49, no previous labs for comparison. INR 1.8. Na 121. K+ 2.8. Lactic Acid 2.2. Ammonia 178. Total Bili 23.5. CT Head w/ small area low density medial right basal ganglia related to recent lacunar infarct, left cerebral infarct vs demyelination. Patient was initially admitted by hospitalist service on 01/29. This morning Dr. Rivera evaluated patient and found him to be more lethargic. Dr. Rivera requested critical care consult in view of worsening lethargy. When I evaluated the patient in the ER he was extremely drowsy/encephalopathic, not opening eyes on command or painful stimuli. Occasionally yawning. He did not appear to be in any acute distress. Per RN he did take his p.o. meds this morning. Patient is a DO NOT INTUBATE status. Dr. Rivera has also consulted palliative care service in view of patient's advanced liver disease with cirrhosis. 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 - Medical History Medical History: Medical History (Last Reviewed 01/29/18 @ 20:52 by Shwetha Leblanc MD) Cirrhosis - Tobacco History Smoking Status: Never smoker - Alcohol History How Often Do You Have a Drink Containing Alcohol: Never - Substance Use History Substance History: No History of Abuse - Travel History Recent Travel in the [place] Within the Last 8 Weeks: No Recent Travel Out of the Country Within the Last 8 Weeks: No - Immunization History Tetanus Immunization: Unsure Hx Influenza Vaccine This Season: No Medications and Allergies Active Medications: Active Medications Al Hydroxide/Mg Hydroxide (Milk Of Magnesia Liq) 30 ml PO Q12H PRN PRN Reason: Mild Constipation Bisacodyl (Dulcolax Supp) 10 mg RECTAL DAILY PRN PRN Reason: SEVERE CONSITIPATION Sterile Water 700 ml/ (Lactulose 300 ml) 0 ml RECTAL Q6H [facility] Folic Acid (Folic Acid) 1 mg PO DAILY [facility] Last Admin: 01/30/18 11:19 Dose: Not Given Potassium Chloride/Sodium Chloride (Ns + Kcl 20 Meq Inj) 1,000 mls @ 100 mls/ hr IV.CONT .Q10H [facility] Last Admin: 01/30/18 11:20 Dose: 100 mls/hr Magnesium Sulfate Inj 4 gm/ (Sodium Chloride) 100 mls @ 50 mls/hr IV.SIG UNSCH PRN PRN Reason: For Magnesium 0.9 - 1.1 mg/dL Magnesium Sulfate Inj 2 gm/ (Sodium Chloride) 100 mls @ 50 mls/hr IV.SIG UNSCH PRN PRN Reason: For Magnesium 1.2 - 1.6 mg/dL Potassium Chloride (Kcl 40 Meq Premix Inj) 40 meq in 100 mls @ 25 mls/hr IV.SIG Q2H PRN PRN Reason: For Potassium 2.8 - 3.2 mEq/L Potassium Chloride (Kcl 20 Meq Premix Inj) 20 meq in 100 mls @ 50 mls/hr IV.SIG Q2H PRN PRN Reason: For Potassium 3.3 - 3.5 mEq/L Potassium Chloride (Kcl 40 Meq Premix Inj) 40 meq in 100 mls @ 25 mls/hr IV.SIG UNSCH PRN PRN Reason: For Potassium 3.3 - 3.5 mEq/L Potassium Chloride (Kcl 20 Meq Premix Inj) 20 meq in 100 mls @ 50 mls/hr IV.SIG Q2H PRN PRN Reason: For Potassium 2.8 - 3.2 mEq/L Potassium Phosphate 30 mmol/ (Sodium Chloride) 260 mls @ 42 mls/hr IV.SIG UNSCH PRN PRN Reason: SEE LABEL COMMENTS Sodium Phosphate 30 mmol/ (Sodium Chloride) 260 mls @ 42 mls/hr IV.SIG UNSCH PRN PRN Reason: For Phosphorus < 2.5 mg/dL Lactulose (Lactulose Liq) 30 ml PO Q8H [facility] Last Admin: 01/30/18 06:43 Dose: 30 ml Magnesium Oxide (Mag-Ox) 800 mg PO UNSCH PRN PRN Reason: For Magnesium 1.2 - 1.6 mg/dL Potassium Bicarb/Potassium Chloride (K-Lyte Cl Eff) 50 meq PO UNSCH PRN PRN Reason: For Potassium 3.3 - 3.5 mEq/L Potassium Phosphate (K-Phos Original) 2,000 mg PO Q4H PRN PRN Reason: Phosphorus Less Than 2.5 mg/dL Potassium Phosphate (K-Phos Original) 2,000 mg PO UNSCH PRN PRN Reason: SEE LABEL COMMENTS Propranolol HCl (Inderal) 10 mg PO BID [facility] Last Admin: 01/30/18 11:20 Dose: Not Given Sennosides (Senokot) 17.2 mg PO Q12H PRN PRN Reason: Moderate Constipation Sodium Chloride (Ns Flush) 2 ml IV.FLUSH BID [facility] Last Admin: 01/30/18 11:20 Dose: 2 ml Sodium Chloride (Ns Flush) 2 ml IV.FLUSH PRN PRN PRN Reason: FLUSH AFTER USING IV ACCESS Spironolactone (Aldactone) 50 mg PO DAILY [facility] Last Admin: 01/30/18 11:19 Dose: Not Given Allergies Allergy/AdvReac Type Severity Reaction Status Date / Time No Known Allergies Allergy Unverified 01/29/18 20:46 Home Medications Medication Instructions Recorded Confirmed Type folic acid 1 mg PO DAILY 01/29/18 01/29/18 History furosemide 40 mg PO DAILY 01/29/18 01/29/18 History hydrochlorothiazide 25 mg PO DAILY 01/29/18 01/29/18 History lactulose 20 g PO BID 01/29/18 01/29/18 History Physical Exam Vital signs: Vital Signs 01/29/18 20:39 01/29/18 20:47 01/29/18 23:00 Temperature 98.2 F 97.8 F Pulse Rate 76 72 74 Respiratory Rate 10 L 10 L 12 Blood Pressure 133/62 134/64 126/61 Pulse Oximetry 100 100 100 01/30/18 01:00 01/30/18 05:00 01/30/18 08:24 Temperature 98.7 F Pulse Rate 76 80 78 Respiratory Rate 10 L 10 L 17 Blood Pressure 116/58 L 113/59 L 114/56 L Pulse Oximetry 100 01/30/18 08:47 01/30/18 12:57 Temperature Pulse Rate 75 78 Respiratory Rate 18 18 Blood Pressure 116/56 L 129/62 Pulse Oximetry 98 99 Intake & Output 01/29/18 01/30/18 01/30/18 18:59 06:59 18:59 Intake Total 1000 / 1000 Output Total 800 / 800 Balance 200 / 200 Weight 79.379 kg Intake: IV 1000 / 1000 NS + KCl 20 mEq Inj 1,000 ML @ 1000 / 1000 100 mls/hr IV.CONT .Q10H [facility] Rx #:[id number] Output: Urine Amount (Catheter) 800 / 800 Indwelling Urethral Catheter 800 / 800 Narrative: HEENT/Neuro: Pallor and icterus present, tongue moist, comatose/ encephalopathic. occasionally yawns, no spontaneous eye opening. No response with painful stimuli, nonfocal grossly Neck: No JVD Chest/pulmonary: CTA bilaterally Cardiovascular: S1-S2 regular no gallop or murmur GI/abdomen: Soft, distended, nontender, bowel sounds present Extremities: Warm bilaterally, no edema - Urinary Catheter Management Indwelling Urethral Catheter Cath placed during this visit: no Reason for continuing: Hourly intake/output Assessment and Plan - Assessment and Plan Plan: 47-year-old male with: 1. Encephalopathy: Probably multifactorial secondary hepatic encephalopathy, recent right basal ganglia stroke as evidenced by head CT, hyponatremia. h/o Cirrhosis, non-compliant w/ medications, Ammonia 178, s/p Lactulose. He is comatose. Continue w/ Lactulose enema, Neuro checks. pt is a DNI. 2. Cirrhosis: h/o Cirrhosis secondary to Alcohol Abuse, does not follow w/ GI back home in [place] per , started Lactulose as above, Aldactone, Propranolol. Consider Lasix when hyponatremia improves. Total bili 24, LFTs mildly elevated. Consult GI for further eval/recommendations. 3. Hyponatremia: Na 121, likely due to cirrhosis/dehydration, monitor I/O, Seizure Precautions, fluid restrict, follow serial sodium. 4. Hypokalemia: Replace potassium per protocol 5. CVA: CT Head w/ recent small right basal ganglia lacunar infarct, left lacunar infarct vs demyelination, images reviewed. Hold ASA in light of significant coagulopathy and thrombocytopenia. Consulted Neurology. Neuro checks. 6. Thrombocytopenia: Platelets 49, no previous labs for comparison, presumably chronic in light of extensive cirrhosis/coagulopathy. No active bleeding noted. Repeat labs in am. 7. DVT Prophylaxis: Pharmacologic contraindication due to coagulopathy/ thrombocytopenia. Patient remains critically ill. Awaiting palliative care evaluation to assist with deciding goals of therapy. If patient's decides to continue aggressive care short of intubation he may require NG tube placement for medications and oral lactulose. Will obtain GI consult for further evaluation. Prognosis appears extremely poor. Time spent on critical care excluding procedures 40 minutes
[2018-01-30 15:47] LABS: Magnesium 2.4 mg/dL (1.5-2.5)
--- NOTE | 2018-01-30 16:06 | P.CONGI ---
History of Present Illness Consult date: 01/30/18 Consult reason: Cirrhosis, hepatic encephalopathy Chief complaint: AMS, Hepatic encephalopathy, hyponatremia History of Present Illness: This is a 47 yo M who up until a month ago had not seen a doctor in 30 years, per he was admitted to [facility] for 13 days a month ago. He went to [facility] for evaluation of generalized abdominal and extremity swelling, at that time he was newly diagnosed with cirrhosis. During admission pts states he had an EGD which was normal. States pt was started on steroids which have since been tapered off. Chad paracentesis during admission. States swelling has improved significantly since being started on diuretics. Pt is obtunded during my exam, therefore all history was obtained through chart review and discussion with at bedside. She reports pt with history of ETOH abuse, last drink was prior to 13 day admission at [facility]. Currently pt is on vacation from [place], arrived on Tuesday. Pt was brought to the ER last night for increasing lethargy , per has been getting worse since Tuesday. Pt has Lactulose he is supposed to be taking but the thinks he has not been taking it as prescribed. Ammonia was significantly elevated on arrival. She reports pt did have some emesis prior to admission and once in ER but denies hematemesis and coffee ground emesis. Pt significantly jaundiced, per she has been noticing this for months. 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 - Medical History Medical History: Medical History (Last Reviewed 01/30/18 @ 14:52 by Yury Davila) Cirrhosis - Tobacco History Smoking Status: Never smoker - Alcohol History How Often Do You Have a Drink Containing Alcohol: Never - Substance Use History Substance History: No History of Abuse - Travel History Recent Travel in the [place] Within the Last 8 Weeks: No Recent Travel Out of the Country Within the Last 8 Weeks: No - Immunization History Tetanus Immunization: Unsure Hx Influenza Vaccine This Season: No <Malika Weeks - Last Filed: 01/30/18 15:48> - Medical History Medical History: Medical History (Last Reviewed 01/30/18 @ 14:52 by Yury Davila) Cirrhosis <Killian Dyer E - Last Filed: 01/30/18 19:38> Medications and Allergies Active Medications: Active Medications Al Hydroxide/Mg Hydroxide (Milk Of Magnesia Liq) 30 ml PO Q12H PRN PRN Reason: Mild Constipation Bisacodyl (Dulcolax Supp) 10 mg RECTAL DAILY PRN PRN Reason: SEVERE CONSITIPATION Sterile Water 700 ml/ (Lactulose 300 ml) 0 ml RECTAL Q6H DELANO Dextrose (D50w Vial) 50 ml IV.PUSH UNSCH PRN PRN Reason: PER HYPOGLYCEMIA PROTOCOL Folic Acid (Folic Acid) 1 mg PO DAILY DELANO Last Admin: 01/30/18 11:19 Dose: Not Given Glucagon (Glucagon Inj) 1 mg OTHER UNSCH PRN PRN Reason: for Hypoglycemia Protocol Potassium Chloride/Sodium Chloride (Ns + Kcl 20 Meq Inj) 1,000 mls @ 100 mls/ hr IV.CONT .Q10H DELANO Last Admin: 01/30/18 11:20 Dose: 100 mls/hr Magnesium Sulfate Inj 4 gm/ (Sodium Chloride) 100 mls @ 50 mls/hr IV.SIG UNSCH PRN PRN Reason: For Magnesium 0.9 - 1.1 mg/dL Magnesium Sulfate Inj 2 gm/ (Sodium Chloride) 100 mls @ 50 mls/hr IV.SIG UNSCH PRN PRN Reason: For Magnesium 1.2 - 1.6 mg/dL Potassium Chloride (Kcl 40 Meq Premix Inj) 40 meq in 100 mls @ 25 mls/hr IV.SIG Q2H PRN PRN Reason: For Potassium 2.8 - 3.2 mEq/L Potassium Chloride (Kcl 20 Meq Premix Inj) 20 meq in 100 mls @ 50 mls/hr IV.SIG Q2H PRN PRN Reason: For Potassium 3.3 - 3.5 mEq/L Potassium Chloride (Kcl 40 Meq Premix Inj) 40 meq in 100 mls @ 25 mls/hr IV.SIG UNSCH PRN PRN Reason: For Potassium 3.3 - 3.5 mEq/L Potassium Chloride (Kcl 20 Meq Premix Inj) 20 meq in 100 mls @ 50 mls/hr IV.SIG Q2H PRN PRN Reason: For Potassium 2.8 - 3.2 mEq/L Potassium Phosphate 30 mmol/ (Sodium Chloride) 260 mls @ 42 mls/hr IV.SIG UNSCH PRN PRN Reason: SEE LABEL COMMENTS Sodium Phosphate 30 mmol/ (Sodium Chloride) 260 mls @ 42 mls/hr IV.SIG UNSCH PRN PRN Reason: For Phosphorus < 2.5 mg/dL Insulin Aspart (Novolog Insulin Correctional Sugar Inj) 0 unit SQ ACHS COUNT INCLUDES THE [facility]; Protocol Lactulose (Lactulose Liq) 30 ml PO Q8H COUNT INCLUDES THE [facility] Last Admin: 01/30/18 06:43 Dose: 30 ml Magnesium Oxide (Mag-Ox) 800 mg PO UNSCH PRN PRN Reason: For Magnesium 1.2 - 1.6 mg/dL Potassium Bicarb/Potassium Chloride (K-Lyte Cl Eff) 50 meq PO UNSCH PRN PRN Reason: For Potassium 3.3 - 3.5 mEq/L Potassium Phosphate (K-Phos Original) 2,000 mg PO Q4H PRN PRN Reason: Phosphorus Less Than 2.5 mg/dL Potassium Phosphate (K-Phos Original) 2,000 mg PO UNSCH PRN PRN Reason: SEE LABEL COMMENTS Propranolol HCl (Inderal) 10 mg PO BID COUNT INCLUDES THE [facility] Last Admin: 01/30/18 11:20 Dose: Not Given Sennosides (Senokot) 17.2 mg PO Q12H PRN PRN Reason: Moderate Constipation Sodium Chloride (Ns Flush) 2 ml IV.FLUSH BID COUNT INCLUDES THE [facility] Last Admin: 01/30/18 11:20 Dose: 2 ml Sodium Chloride (Ns Flush) 2 ml IV.FLUSH PRN PRN PRN Reason: FLUSH AFTER USING IV ACCESS Spironolactone (Aldactone) 50 mg PO DAILY COUNT INCLUDES THE [facility] Last Admin: 01/30/18 11:19 Dose: Not Given <Malika Weeks - Last Filed: 01/30/18 15:48> Active Medications: Active Medications Al Hydroxide/Mg Hydroxide (Milk Of Magnesia Liq) 30 ml PO Q12H PRN PRN Reason: Mild Constipation Bisacodyl (Dulcolax Supp) 10 mg RECTAL DAILY PRN PRN Reason: SEVERE CONSITIPATION Sterile Water 700 ml/ (Lactulose 300 ml) 0 ml RECTAL Q6H COUNT INCLUDES THE [facility] Last Admin: 01/30/18 17:36 Dose: 700 enema Dextrose (D50w Vial) 50 ml IV.PUSH UNSCH PRN PRN Reason: PER HYPOGLYCEMIA PROTOCOL Folic Acid (Folic Acid) 1 mg PO DAILY COUNT INCLUDES THE [facility] Last Admin: 01/30/18 11:19 Dose: Not Given Glucagon (Glucagon Inj) 1 mg OTHER UNSCH PRN PRN Reason: for Hypoglycemia Protocol Potassium Chloride/Sodium Chloride (Ns + Kcl 20 Meq Inj) 1,000 mls @ 100 mls/ hr IV.CONT .Q10H COUNT INCLUDES THE [facility] Last Admin: 01/30/18 11:20 Dose: 100 mls/hr Magnesium Sulfate Inj 4 gm/ (Sodium Chloride) 100 mls @ 50 mls/hr IV.SIG UNSCH PRN PRN Reason: For Magnesium 0.9 - 1.1 mg/dL Magnesium Sulfate Inj 2 gm/ (Sodium Chloride) 100 mls @ 50 mls/hr IV.SIG UNSCH PRN PRN Reason: For Magnesium 1.2 - 1.6 mg/dL Potassium Chloride (Kcl 40 Meq Premix Inj) 40 meq in 100 mls @ 25 mls/hr IV.SIG Q2H PRN PRN Reason: For Potassium 2.8 - 3.2 mEq/L Potassium Chloride (Kcl 20 Meq Premix Inj) 20 meq in 100 mls @ 50 mls/hr IV.SIG Q2H PRN PRN Reason: For Potassium 3.3 - 3.5 mEq/L Potassium Chloride (Kcl 40 Meq Premix Inj) 40 meq in 100 mls @ 25 mls/hr IV.SIG UNSCH PRN PRN Reason: For Potassium 3.3 - 3.5 mEq/L Potassium Chloride (Kcl 20 Meq Premix Inj) 20 meq in 100 mls @ 50 mls/hr IV.SIG Q2H PRN PRN Reason: For Potassium 2.8 - 3.2 mEq/L Potassium Phosphate 30 mmol/ (Sodium Chloride) 260 mls @ 42 mls/hr IV.SIG UNSCH PRN PRN Reason: SEE LABEL COMMENTS Sodium Phosphate 30 mmol/ (Sodium Chloride) 260 mls @ 42 mls/hr IV.SIG UNSCH PRN PRN Reason: For Phosphorus < 2.5 mg/dL Insulin Aspart (Novolog Insulin Correctional Sugar Inj) 0 unit SQ ACHS DELANO; Protocol Last Admin: 01/30/18 18:19 Dose: Not Given Lactulose (Lactulose Liq) 30 ml PO Q8H COUNT INCLUDES THE [facility] Last Admin: 01/30/18 17:37 Dose: Not Given Magnesium Oxide (Mag-Ox) 800 mg PO UNSCH PRN PRN Reason: For Magnesium 1.2 - 1.6 mg/dL Potassium Bicarb/Potassium Chloride (K-Lyte Cl Eff) 50 meq PO UNSCH PRN PRN Reason: For Potassium 3.3 - 3.5 mEq/L Potassium Phosphate (K-Phos Original) 2,000 mg PO Q4H PRN PRN Reason: Phosphorus Less Than 2.5 mg/dL Potassium Phosphate (K-Phos Original) 2,000 mg PO UNSCH PRN PRN Reason: SEE LABEL COMMENTS Propranolol HCl (Inderal) 10 mg PO BID COUNT INCLUDES THE [facility] Last Admin: 01/30/18 11:20 Dose: Not Given Rifaximin (Xifaxan) 550 mg PO Q12HR COUNT INCLUDES THE [facility] Sennosides (Senokot) 17.2 mg PO Q12H PRN PRN Reason: Moderate Constipation Sodium Chloride (Ns Flush) 2 ml IV.FLUSH BID COUNT INCLUDES THE [facility] Last Admin: 01/30/18 11:20 Dose: 2 ml Sodium Chloride (Ns Flush) 2 ml IV.FLUSH PRN PRN PRN Reason: FLUSH AFTER USING IV ACCESS Spironolactone (Aldactone) 50 mg PO DAILY COUNT INCLUDES THE [facility] Last Admin: 01/30/18 11:19 Dose: Not Given <Killian Dyer E - Last Filed: 01/30/18 19:38> Allergies Allergy/AdvReac Type Severity Reaction Status Date / Time No Known Allergies Allergy Unverified 01/29/18 20:46 Home Medications Medication Instructions Recorded Confirmed Type folic acid 1 mg PO DAILY 01/29/18 01/29/18 History furosemide 40 mg PO DAILY 01/29/18 01/29/18 History hydrochlorothiazide 25 mg PO DAILY 01/29/18 01/29/18 History lactulose 20 g PO BID 01/29/18 01/29/18 History Exam Vital signs: Vital Signs 01/29/18 20:39 01/29/18 20:47 01/29/18 23:00 Temperature 98.2 F 97.8 F Pulse Rate 76 72 74 Respiratory Rate 10 L 10 L 12 Blood Pressure 133/62 134/64 126/61 Pulse Oximetry 100 100 100 01/30/18 01:00 01/30/18 05:00 07/16/18 08:24 Temperature 98.7 F Pulse Rate 76 80 78 Respiratory Rate 10 L 10 L 17 Blood Pressure 116/58 L 113/59 L 114/56 L Pulse Oximetry 100 01/30/18 08:47 01/30/18 12:57 Temperature Pulse Rate 75 78 Respiratory Rate 18 18 Blood Pressure 116/56 L 129/62 Pulse Oximetry 98 99 Intake & Output 01/29/18 01/30/18 01/30/18 18:59 06:59 18:59 Intake Total 1000 / 1000 Output Total 800 / 800 Balance 200 / 200 Weight 79.379 kg Intake: IV 1000 / 1000 NS + KCl 20 mEq Inj 1,000 ML @ 1000 / 1000 100 mls/hr IV.CONT .Q10H COUNT INCLUDES THE [facility] Rx #:[id number] Output: Urine Amount (Catheter) 800 / 800 Indwelling Urethral Catheter 800 / 800 - Constitutional obtunded - Routine HEENT Exam Head: Present: normocephalic, atraumatic Eye: Present: conjunctival icterus - Routine Respiratory Exam Absent: accessory muscle use - Routine Cardiovascular Exam Present: RRR - Routine Abdominal Exam Present: soft, normoactive bowel sounds. Absent: distended - Routine Extremities Exam Absent: edema - Routine Skin Exam Present: jaundice <Malika Weeks - Last Filed: 01/30/18 15:48> Vital signs: Vital Signs 01/29/18 20:39 01/29/18 20:47 01/29/18 23:00 Temperature 98.2 F 97.8 F Pulse Rate 76 72 74 Respiratory Rate 10 L 10 L 12 Blood Pressure 133/62 134/64 126/61 Pulse Oximetry 100 100 100 01/30/18 01:00 01/30/18 05:00 01/30/18 08:24 Temperature 98.7 F Pulse Rate 76 80 78 Respiratory Rate 10 L 10 L 17 Blood Pressure 116/58 L 113/59 L 114/56 L Pulse Oximetry 100 01/30/18 08:47 01/30/18 12:57 01/30/18 17:37 Temperature Pulse Rate 75 78 77 Respiratory Rate 18 18 18 Blood Pressure 116/56 L 129/62 127/58 L Pulse Oximetry 98 99 100 01/30/18 18:21 01/30/18 18:56 Temperature Pulse Rate 80 Respiratory Rate 20 Blood Pressure 132/83 Pulse Oximetry 99 Intake & Output 01/30/18 01/30/1818 06:59 18:59 06:59 Intake Total 1000 / 1000 Output Total 800 / 800 Balance 200 / 200 Weight 79.379 kg Intake: IV 1000 / 1000 NS + KCl 20 mEq Inj 1,000 ML @ 1000 / 1000 100 mls/hr IV.CONT .Q10H COUNT INCLUDES THE [facility] Rx #:[id number] Output: Urine Amount (Catheter) 800 / 800 Indwelling Urethral Catheter 800 / 800 <Killian Dyer E - Last Filed: 01/30/18 19:38> Results - Labs CBC & Chem 7: 01/30/18 07:42 01/30/18 07:42 Labs: Laboratory Results - last 24 hr 01/29/18 01/29/18 01/29/18 20:45 20:45 20:45 WBC 5.5 RBC 2.35 L Hgb 9.3 L Hct 24.9 L MCV 106.0 H MCH 39.5 H MCHC 37.2 H RDW 17.8 H Plt Count 49 L MPV 8.1 Prelim Diff (Auto) Slide review pending Neut % (Auto) 78.7 H Lymph % (Auto) 10.3 [place] % (Auto) 10.2 H Eos % (Auto) 0.6 Baso % (Auto) 0.2 Neut # (Auto) 4.4 Lymph # (Auto) 0.6 L [place] # (Auto) 0.6 Eos # (Auto) 0.0 Baso # (Auto) 0.0 WBC Differential . Diff Scan Auto diff confirmed Differential Comment . Ovalocytes [place] Cells 1+ H Acanthocytes (Spur) 1+ H Keratocytes 1+ H PT 18.7 H INR 1.8 APTT 40.1 H Puncture Site Patient Temperature O2 Saturation ABG pH ABG pCO2 ABG pO2 ABG HCO3 ABG O2 Content ABG Base Excess ABG Methemoglobin Michael Test Hemoglobin Carboxyhemoglobin Inspired O2 Critical Value Sodium Potassium Chloride Carbon Dioxide Anion Gap BUN Creatinine Estimated GFR Random Glucose Lactic Acid Calcium Magnesium Total Bilirubin AST ALT Alkaline Phosphatase Ammonia Total Creatine Kinase Troponin I Total Protein Albumin Lipase TSH 0.853 Urine Color Urine Clarity Urine pH Ur Specific [place] Urine Protein Urine Glucose (UA) Urine Ketones Urine Occult Blood Urine Nitrate Urine Bilirubin Urine Ictotest Urine Urobilinogen Ur Leukocyte Esterase Urine RBC Urine WBC Urine Mucus Micro UA Comment Urine Culture Comments Urine Opiates Screen Ur Barbiturates Screen Ur Amphetamines Screen U Benzodiazepines Scrn Urine Cocaine Screen U Cannabinoids Screen Serum Alcohol Less than 3 01/29/18 01/29/18 01/29/18 20:45 20:45 20:53 WBC RBC Hgb Hct MCV MCH MCHC RDW Plt Count MPV Prelim Diff (Auto) Neut % (Auto) Lymph % (Auto) [place] % (Auto) Eos % (Auto) Baso % (Auto) Neut # (Auto) Lymph # (Auto) [place] # (Auto) Eos # (Auto) Baso # (Auto) WBC Differential Diff Scan Differential Comment Ovalocytes [place] Cells Acanthocytes (Spur) Keratocytes PT INR APTT Puncture Site Patient Temperature O2 Saturation ABG pH ABG pCO2 ABG pO2 ABG HCO3 ABG O2 Content ABG Base Excess ABG Methemoglobin Michael Test Hemoglobin Carboxyhemoglobin Inspired O2 Critical Value Sodium 121 L* Potassium 2.8 L* Chloride 83 L Carbon Dioxide 21.5 Anion Gap 17 H BUN 41 H Creatinine 1.07 Estimated GFR 74 L Random Glucose 116 H Lactic Acid 2.2 H Calcium 7.6 L Magnesium Total Bilirubin 23.5 H AST 80 H ALT 92 H Alkaline Phosphatase 118 H Ammonia Total Creatine Kinase 33 L Troponin I 0.03 Total Protein 4.6 L Albumin 2.2 L Lipase 282 TSH Urine Color Urine Clarity Urine pH Ur Specific [place] Urine Protein Urine Glucose (UA) Urine Ketones Urine Occult Blood Urine Nitrate Urine Bilirubin Urine Ictotest Urine Urobilinogen Ur Leukocyte Esterase Urine RBC Urine WBC Urine Mucus Micro UA Comment Urine Culture Comments Urine Opiates Screen Ur Barbiturates Screen Ur Amphetamines Screen U Benzodiazepines Scrn Urine Cocaine Screen U Cannabinoids Screen Serum Alcohol 01/29/18 01/29/18 01/29/18 20:53 21:30 21:30 WBC RBC Hgb Hct MCV MCH MCHC RDW Plt Count MPV Prelim Diff (Auto) Neut % (Auto) Lymph % (Auto) [place] % (Auto) Eos % (Auto) Baso % (Auto) Neut # (Auto) Lymph # (Auto) [place] # (Auto) Eos # (Auto) Baso # (Auto) WBC Differential Diff Scan Differential Comment Ovalocytes [place] Cells Acanthocytes (Spur) Keratocytes PT INR APTT Puncture Site Patient Temperature O2 Saturation ABG pH ABG pCO2 ABG pO2 ABG HCO3 ABG O2 Content ABG Base Excess ABG Methemoglobin Michael Test Hemoglobin Carboxyhemoglobin Inspired O2 Critical Value Sodium Potassium Chloride Carbon Dioxide Anion Gap BUN Creatinine Estimated GFR Random Glucose Lactic Acid Calcium Magnesium Total Bilirubin AST ALT Alkaline Phosphatase Ammonia 178 H Total Creatine Kinase Troponin I Total Protein Albumin Lipase TSH Urine Color [place] Urine Clarity Clear Urine pH 6.0 Ur Specific [place] 1.011 Urine Protein Negative Urine Glucose (UA) Negative Urine Ketones Negative Urine Occult Blood Small H Urine Nitrate Negative Urine Bilirubin Small H Urine Ictotest Positive H Urine Urobilinogen 4 or greater Ur Leukocyte Esterase Negative Urine RBC Less than 1 Urine WBC 1 Urine Mucus Few H Micro UA Comment Cath-culture not ind Urine Culture Comments Cath-cult not ind Urine Opiates Screen Neg Ur Barbiturates Screen Neg Ur Amphetamines Screen Neg U Benzodiazepines Scrn Neg Urine Cocaine Screen Neg U Cannabinoids Screen Neg Serum Alcohol 01/30/18 01/30/18 01/30/18 00:15 07:42 07:42 WBC 6.1 RBC 2.51 L Hgb 9.7 L Hct 26.4 L MCV 105.5 H MCH 38.8 H MCHC 36.8 H RDW 18.5 H Plt Count 53 L MPV 7.7 Prelim Diff (Auto) Slide review pending Neut % (Auto) 79.1 H Lymph % (Auto) 11.0 [place] % (Auto) 9.5 H Eos % (Auto) 0.2 Baso % (Auto) 0.2 Neut # (Auto) 4.8 Lymph # (Auto) 0.7 L [place] # (Auto) 0.6 Eos # (Auto) 0.0 Baso # (Auto) 0.0 WBC Differential . Diff Scan Auto diff confirmed Differential Comment . Ovalocytes 1+ H [place] Cells 1+ H Acanthocytes (Spur) 2+ H Keratocytes 1+ H PT 19.2 H INR 1.9 APTT Puncture Site Patient Temperature O2 Saturation ABG pH ABG pCO2 ABG pO2 ABG HCO3 ABG O2 Content ABG Base Excess ABG Methemoglobin Michael Test Hemoglobin Carboxyhemoglobin Inspired O2 Critical Value Sodium Potassium Chloride Carbon Dioxide Anion Gap BUN Creatinine Estimated GFR Random Glucose Lactic Acid 1.8 Calcium Magnesium Total Bilirubin AST ALT Alkaline Phosphatase Ammonia Total Creatine Kinase Troponin I Total Protein Albumin Lipase TSH Urine Color Urine Clarity Urine pH Ur Specific [place] Urine Protein Urine Glucose (UA) Urine Ketones Urine Occult Blood Urine Nitrate Urine Bilirubin Urine Ictotest Urine Urobilinogen Ur Leukocyte Esterase Urine RBC Urine WBC Urine Mucus Micro UA Comment Urine Culture Comments Urine Opiates Screen Ur Barbiturates Screen Ur Amphetamines Screen U Benzodiazepines Scrn Urine Cocaine Screen U Cannabinoids Screen Serum Alcohol 01/30/18 01/30/18 07:42 10:23 WBC RBC Hgb Hct MCV MCH MCHC RDW Plt Count MPV Prelim Diff (Auto) Neut % (Auto) Lymph % (Auto) [place] % (Auto) Eos % (Auto) Baso % (Auto) Neut # (Auto) Lymph # (Auto) [place] # (Auto) Eos # (Auto) Baso # (Auto) WBC Differential Diff Scan Differential Comment Ovalocytes [place] Cells Acanthocytes (Spur) Keratocytes PT INR APTT Puncture Site Right radial Patient Temperature 98.6 O2 Saturation 95 ABG pH 7.54 H* ABG pCO2 26 L ABG pO2 88 ABG HCO3 22 ABG O2 Content 12.0 ABG Base Excess -0.5 ABG Methemoglobin 0.0 Michael Test Present Hemoglobin 8.9 L Carboxyhemoglobin 3.3 Inspired O2 21 Critical Value Yes Sodium 125 L Potassium 3.1 L Chloride 90 L Carbon Dioxide 22.5 Anion Gap 13 BUN 44 H Creatinine 1.24 Estimated GFR 62 L Random Glucose 115 H Lactic Acid Calcium 7.7 L Magnesium 2.4 Total Bilirubin 23.6 H AST 79 H ALT 95 H Alkaline Phosphatase 120 H Ammonia Total Creatine Kinase Troponin I Total Protein 4.7 L Albumin 2.3 L Lipase TSH Urine Color Urine Clarity Urine pH Ur Specific [place] Urine Protein Urine Glucose (UA) Urine Ketones Urine Occult Blood Urine Nitrate Urine Bilirubin Urine Ictotest Urine Urobilinogen Ur Leukocyte Esterase Urine RBC Urine WBC Urine Mucus Micro UA Comment Urine Culture Comments Urine Opiates Screen Ur Barbiturates Screen Ur Amphetamines Screen U Benzodiazepines Scrn Urine Cocaine Screen U Cannabinoids Screen Serum Alcohol - Imaging Impressions Chest X-Ray 01/29/18 20:46 CONCLUSION: No acute cardiopulmonary process. Head CT 01/29/18 20:46 CONCLUSION: 1. Small area of low density in the medial right basal ganglia likely related to a recent lacunar infarct. 2. Mild area of decreased density in the left cerebral white matter representing either a prior lacunar infarct or an area of demyelination. 3. No acute areas of hemorrhage or mass effect is seen. Carotid Doppler Study 01/30/18 00:00 CONCLUSION: No evidence of flow-limiting carotid stenosis. <Malika Weeks - Last Filed: 01/30/18 15:48> - Labs CBC & Chem 7: 01/30/18 07:42 01/30/18 07:42 Labs: Laboratory Results - last 24 hr 01/29/18 01/29/18 01/29/18 20:45 20:45 20:45 WBC 5.5 RBC 2.35 L Hgb 9.3 L Hct 24.9 L MCV 106.0 H MCH 39.5 H MCHC 37.2 H RDW 17.8 H Plt Count 49 L MPV 8.1 Prelim Diff (Auto) Slide review pending Neut % (Auto) 78.7 H Lymph % (Auto) 10.3 [place] % (Auto) 10.2 H Eos % (Auto) 0.6 Baso % (Auto) 0.2 Neut # (Auto) 4.4 Lymph # (Auto) 0.6 L [place] # (Auto) 0.6 Eos # (Auto) 0.0 Baso # (Auto) 0.0 WBC Differential . Diff Scan Auto diff confirmed Differential Comment . Ovalocytes [place] Cells 1+ H Acanthocytes (Spur) 1+ H Keratocytes 1+ H PT 18.7 H INR 1.8 APTT 40.1 H Puncture Site Patient Temperature O2 Saturation ABG pH ABG pCO2 ABG pO2 ABG HCO3 ABG O2 Content ABG Base Excess ABG Methemoglobin Michael Test Hemoglobin Carboxyhemoglobin Inspired O2 Critical Value Sodium Potassium Chloride Carbon Dioxide Anion Gap BUN Creatinine Estimated GFR POC Glucose Random Glucose Lactic Acid Calcium Magnesium Total Bilirubin AST ALT Alkaline Phosphatase Ammonia Total Creatine Kinase Troponin I Total Protein Albumin Lipase TSH 0.853 Urine Color Urine Clarity Urine pH Ur Specific [place] Urine Protein Urine Glucose (UA) Urine Ketones Urine Occult Blood Urine Nitrate Urine Bilirubin Urine Ictotest Urine Urobilinogen Ur Leukocyte Esterase Urine RBC Urine WBC Urine Mucus Micro UA Comment Urine Culture Comments Urine Opiates Screen Ur Barbiturates Screen Ur Amphetamines Screen U Benzodiazepines Scrn Urine Cocaine Screen U Cannabinoids Screen Serum Alcohol Less than 3 01/29/18 01/29/18 01/29/18 20:45 20:45 20:53 WBC RBC Hgb Hct MCV MCH MCHC RDW Plt Count MPV Prelim Diff (Auto) Neut % (Auto) Lymph % (Auto) [place] % (Auto) Eos % (Auto) Baso % (Auto) Neut # (Auto) Lymph # (Auto) [place] # (Auto) Eos # (Auto) Baso # (Auto) WBC Differential Diff Scan Differential Comment Ovalocytes [place] Cells Acanthocytes (Spur) Keratocytes PT INR APTT Puncture Site Patient Temperature O2 Saturation ABG pH ABG pCO2 ABG pO2 ABG HCO3 ABG O2 Content ABG Base Excess ABG Methemoglobin Michael Test Hemoglobin Carboxyhemoglobin Inspired O2 Critical Value Sodium 121 L* Potassium 2.8 L* Chloride 83 L Carbon Dioxide 21.5 Anion Gap 17 H BUN 41 H Creatinine 1.07 Estimated GFR 74 L POC Glucose Random Glucose 116 H Lactic Acid 2.2 H Calcium 7.6 L Magnesium Total Bilirubin 23.5 H AST 80 H ALT 92 H Alkaline Phosphatase 118 H Ammonia Total Creatine Kinase 33 L Troponin I 0.03 Total Protein 4.6 L Albumin 2.2 L Lipase 282 TSH Urine Color Urine Clarity Urine pH Ur Specific [place] Urine Protein Urine Glucose (UA) Urine Ketones Urine Occult Blood Urine Nitrate Urine Bilirubin Urine Ictotest Urine Urobilinogen Ur Leukocyte Esterase Urine RBC Urine WBC Urine Mucus Micro UA Comment Urine Culture Comments Urine Opiates Screen Ur Barbiturates Screen Ur Amphetamines Screen U Benzodiazepines Scrn Urine Cocaine Screen U Cannabinoids Screen Serum Alcohol 01/29/18 01/29/18 01/29/18 20:53 21:30 21:30 WBC RBC Hgb Hct MCV MCH MCHC RDW Plt Count MPV Prelim Diff (Auto) Neut % (Auto) Lymph % (Auto) [place] % (Auto) Eos % (Auto) Baso % (Auto) Neut # (Auto) Lymph # (Auto) [place] # (Auto) Eos # (Auto) Baso # (Auto) WBC Differential Diff Scan Differential Comment Ovalocytes [place] Cells Acanthocytes (Sp[place]) Keratocytes PT INR APTT Puncture Site Patient Temperature O2 Saturation ABG pH ABG pCO2 ABG pO2 ABG HCO3 ABG O2 Content ABG Base Excess ABG Methemoglobin Michael Test Hemoglobin Carboxyhemoglobin Inspired O2 Critical Value Sodium Potassium Chloride Carbon Dioxide Anion Gap BUN Creatinine Estimated GFR POC Glucose Random Glucose Lactic Acid Calcium Magnesium Total Bilirubin AST ALT Alkaline Phosphatase Ammonia 178 H Total Creatine Kinase Troponin I Total Protein Albumin Lipase TSH Urine Color [place] Urine Clarity Clear Urine pH 6.0 Ur Specific [place] 1.011 Urine Protein Negative Urine Glucose (UA) Negative Urine Ketones Negative Urine Occult Blood Small H Urine Nitrate Negative Urine Bilirubin Small H Urine Ictotest Positive H Urine Urobilinogen 4 or greater Ur Leukocyte Esterase Negative Urine RBC Less than 1 Urine WBC 1 Urine Mucus Few H Micro UA Comment Cath-culture not ind Urine Culture Comments Cath-cult not ind Urine Opiates Screen Neg Ur Barbiturates Screen Neg Ur Amphetamines Screen Neg U Benzodiazepines Scrn Neg Urine Cocaine Screen Neg U Cannabinoids Screen Neg Serum Alcohol 01/30/18 01/30/18 01/30/18 00:15 07:42 07:42 WBC 6.1 RBC 2.51 L Hgb 9.7 L Hct 26.4 L MCV 105.5 H MCH 38.8 H MCHC 36.8 H RDW 18.5 H Plt Count 53 L MPV 7.7 Prelim Diff (Auto) Slide review pending Neut % (Auto) 79.1 H Lymph % (Auto) 11.0 [place] % (Auto) 9.5 H Eos % (Auto) 0.2 Baso % (Auto) 0.2 Neut # (Auto) 4.8 Lymph # (Auto) 0.7 L [place] # (Auto) 0.6 Eos # (Auto) 0.0 Baso # (Auto) 0.0 WBC Differential . Diff Scan Auto diff confirmed Differential Comment . Ovalocytes 1+ H Melissa Cells 1+ H Acanthocytes (Spur) 2+ H Keratocytes 1+ H PT 19.2 H INR 1.9 APTT Puncture Site Patient Temperature O2 Saturation ABG pH ABG pCO2 ABG pO2 ABG HCO3 ABG O2 Content ABG Base Excess ABG Methemoglobin Michael Test Hemoglobin Carboxyhemoglobin Inspired O2 Critical Value Sodium Potassium Chloride Carbon Dioxide Anion Gap BUN Creatinine Estimated GFR POC Glucose Random Glucose Lactic Acid 1.8 Calcium Magnesium Total Bilirubin AST ALT Alkaline Phosphatase Ammonia Total Creatine Kinase Troponin I Total Protein Albumin Lipase TSH Urine Color Urine Clarity Urine pH Ur Specific [place] Urine Protein Urine Glucose (UA) Urine Ketones Urine Occult Blood Urine Nitrate Urine Bilirubin Urine Ictotest Urine Urobilinogen Ur Leukocyte Esterase Urine RBC Urine WBC Urine Mucus Micro UA Comment Urine Culture Comments Urine Opiates Screen Ur Barbiturates Screen Ur Amphetamines Screen U Benzodiazepines Scrn Urine Cocaine Screen U Cannabinoids Screen Serum Alcohol 01/30/18 01/30/18 01/30/18 07:42 10:23 17:43 WBC RBC Hgb Hct MCV MCH MCHC RDW Plt Count MPV Prelim Diff (Auto) Neut % (Auto) Lymph % (Auto) [place] % (Auto) Eos % (Auto) Baso % (Auto) Neut # (Auto) Lymph # (Auto) [place] # (Auto) Eos # (Auto) Baso # (Auto) WBC Differential Diff Scan Differential Comment Ovalocytes [place] Cells Acanthocytes (Spur) Keratocytes PT INR APTT Puncture Site Right radial Patient Temperature 98.6 O2 Saturation 95 ABG pH 7.54 H* ABG pCO2 26 L ABG pO2 88 ABG HCO3 22 ABG O2 Content 12.0 ABG Base Excess -0.5 ABG Methemoglobin 0.0 Michael Test Present Hemoglobin 8.9 L Carboxyhemoglobin 3.3 Inspired O2 21 Critical Value Yes Sodium 125 L Potassium 3.1 L Chloride 90 L Carbon Dioxide 22.5 Anion Gap 13 BUN 44 H Creatinine 1.24 Estimated GFR 62 L POC Glucose 135 H Random Glucose 115 H Lactic Acid Calcium 7.7 L Magnesium 2.4 Total Bilirubin 23.6 H AST 79 H ALT 95 H Alkaline Phosphatase 120 H Ammonia Total Creatine Kinase Troponin I Total Protein 4.7 L Albumin 2.3 L Lipase TSH Urine Color Urine Clarity Urine pH Ur Specific [place] Urine Protein Urine Glucose (UA) Urine Ketones Urine Occult Blood Urine Nitrate Urine Bilirubin Urine Ictotest Urine Urobilinogen Ur Leukocyte Esterase Urine RBC Urine WBC Urine Mucus Micro UA Comment Urine Culture Comments Urine Opiates Screen Ur Barbiturates Screen Ur Amphetamines Screen U Benzodiazepines Scrn Urine Cocaine Screen U Cannabinoids Screen Serum Alcohol - Imaging Impressions Chest X-Ray 01/29/18 20:46 CONCLUSION: No acute cardiopulmonary process. Head CT 01/29/18 20:46 CONCLUSION: 1. Small area of low density in the medial right basal ganglia likely related to a recent lacunar infarct. 2. Mild area of decreased density in the left cerebral white matter representing either a prior lacunar infarct or an area of demyelination. 3. No acute areas of hemorrhage or mass effect is seen. Carotid Doppler Study 01/30/18 00:00 CONCLUSION: No evidence of flow-limiting carotid stenosis. <Killian Dyer E - Last Filed: 01/30/18 19:38> Assessment and Plan (1) History of ETOH abuse Status: Acute Code(s): Z87.898 - Personal history of other specified conditions (2) Acute hepatic encephalopathy Status: Acute Code(s): K72.00 - Acute and subacute hepatic failure without coma (3) Cirrhosis Status: Acute Code(s): K74.60 - Unspecified cirrhosis of liver - Plan Assessment: - Cirrhosis- newly diagnosed during 13 day admission at [facility] a month ago (pt from [place], here on vacation) Per , pt was evaluated at hospital for extremity and abdominal swelling. Also has been jaundiced for multiple months. During admission pt placed on steroids for ETOH hepatitis which has since been tapered, had EGD which she states was normal. Denies paracentesis. States swelling improved significantly since being started on diuretics. Prior to admission pt had not seen a doctor in 30 years. Coagulopathy (INR 1.9) Hypoalbuminemia (albumin 2.3) Thrombocytopenia ( platelets 53) On admission (01/29) T bili-23.5 AST-80 ALT-92 Alk phos-118 - Encephalopathy- multifactorial- ammonia 178 as well as imaging consistent with recent lacunar infarct, left cerebral infarct vs demyelination Per pt has been increasingly lethargic since Tuesday, states has not been taking Lactulose as prescribed - History of ETOH abuse- no ETOH since 13 day admission at [facility] a month ago - Electrolyte imbalance- per [facility] Plan: Lactulose Xifaxan Inderal Spironolactone Monitor labs Palliative consult seems appropriate Agree with [facility] if opts for aggressive treatment Supportive care Further recommendations based on clinical course Pt has been seen and examined by myself and Dr. Dyer and this note is written on his behalf <Malika Weeks - Last Filed: 01/30/18 15:48> (1) History of ETOH abuse Status: Acute Code(s): Z87.898 - Personal history of other specified conditions (2) Acute hepatic encephalopathy Status: Acute Code(s): K72.00 - Acute and subacute hepatic failure without coma (3) Cirrhosis Status: Acute Code(s): K74.60 - Unspecified cirrhosis of liver - Attending Attestation Patient was seen and examined Agree with above Continue with current supportive care Monitor labs Patient with obviously acute alcoholic hepatitis with potential liver failure with his coag being at 1.9 Apart from supportive care there is little to be done at this point except treat symptomatically as he is already the case <Killian Dyer - Last Filed: 01/30/18 19:38>
--- NOTE | 2018-01-30 17:27 | P.CONPAL ---
Consult Service: Palliative Care Requesting Physician: Corby Rivera Reason for Consult: a. To assist with evaluation and management of symptoms including: Lethargy, nausea b. To assist medical decision maker(s) with: better understanding of current medical conditions; weighing benefits/burdens of medical treatment options; making medical treatment decisions. Primary Care Provider: No Primary Care Physician, comes from [place]. History of Present Illness History of Present Illness: This is a 47-year-old male vacationing with his and 13-year-old daughter in [place] from [place] when he became so lethargic, his could not arouse him or get him out of bed. He had recently been seen at a hospital in [place] for gross anasarca, ascites, edema, lethargy, weakness and diagnosed with liver failure and cirrhosis. They are pending an appointment with a bi analyst February 21. He had been prescribed lactulose, but frequently forgot to take it due to lethargy. On admission he was able to provide his name but no other medical history. He was grossly jaundiced and appeared confused. Per his , he had stopped all alcohol use when diagnosed with cirrhosis in [place]. She states it has been 4-5 weeks since his last alcoholic drink. He had previously drank approximately 6-8 drinks daily for the prior 30 years. His gives a history of not having seen a doctor in over 30 years. Presenting laboratory studies shows white blood cell 5.5, hemoglobin 9.3, hematocrit 24.9, platelets 49, prothrombin time 18.7, INR 1.8, APTT 40.1, sodium 121, potassium 2.8, chloride 83, anion gap 17, BUN 41, creatinine 1.07, random glucose 116, lactic acid 2.2, total bilirubin 23.5, AST 80, ALT 92, alkaline phosphatase 118, ammonia 178, TCK 33, total protein 4.6, albumin 2.2, lipase 282, TSH 0.853, arterial blood gas drawn 01/30 shows pH 7.54, PCO2 26, PO2 88, bicarbonate 22, base excess -0.5, oxygen saturation 95%. Imaging studies: Chest x-ray showed no acute cardiopulmonary process. Head CT shows a small area of low density in the medial right basal ganglia, likely related to recent lacunar infarct. Mild area of decreased density in the left cerebral white matter representing either a prior lacunar infarct or an area of demyelination. No acute areas of hemorrhage or mass-effect. Bilateral carotid Doppler showed no hemodynamically significant stenosis. Patient was seen by gastroenterology recommending to continue lactulose, add Xifaxan, Inderal, spironolactone and monitor labs. Patient may need Dobbhoff tube if agrees, due to his lethargy. He was also seen by critical care medicine due to his severe encephalopathy and metabolic derangements. They note the recent CVA noted on head CT and have consulted neurology. Aspirin has been held in light of his auto anticoagulation /coagulopathy with serial labs recommended. Patient is seen in room E51 with at bedside. He is jaundiced, obtunded, not responding to verbal or tactile stimuli. He occasionally coughs or repositions himself but does not open his eyes or interact. . Function/Cognitive Trajectory: He had previously been independent with all ADLs up until about a month ago. His stated that he had gained about 60 pounds in fluid and she eventually convinced him to go to the hospital where he was admitted for about 13 days, diagnosed with liver failure and cirrhosis, prescribed lactulose and referred to a bi analyst. 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 They came to [place] with their 13 -year-old daughter for a vacation and he remained lethargic, some days just staying in bed in the hotel room. At this evaluation he is obtunded. . Review of Systems Patient is nonverbal and unable to provide their own ROS. 10 part ROS taken as best as possible from medical record and available family. Constitutional: Reports fatigue, Reports lack of energy, Reports weakness Cardiovascular: Reports generalized swelling Gastrointestinal: Reports vomiting Skin/Breast: Reports yellowing of the skin Psychiatric: Reports confusion PMFSH - History History Provided By: Patient, Nurse Practitioner Physicians Assistant / EMT - Medical / Surgical Hx Neg / Unobtainable Medical Problems Denied: Unable to Obtain ( states patient had not been to see a physician in over 30 years.) Surgical History: No Previous Surgery - Medical History Medical History: Medical History (Last Reviewed 01/30/18 @ 14:52 by Yury Davila) Cirrhosis - Tobacco History Second Hand Smoke Exposure: No Tobacco Use In Past 30 Days: No Smoking Status: Never smoker - Alcohol History How Often Do You Have a Drink Containing Alcohol: Never (Drank 6-8 drinks daily for 30 years, quit 5 weeks ago.) - Substance Use History Substance History: Past History - Travel History Recent Travel in the [place] Within the Last 8 Weeks: Yes Recent Travel Out of the Country Within the Last 8 Weeks: No - Immunization History Tetanus Immunization: Unsure Hx Influenza Vaccine This Season: No Medications and Allergies Active Medications: Active Medications Al Hydroxide/Mg Hydroxide (Milk Of Magnesia Liq) 30 ml PO Q12H PRN PRN Reason: Mild Constipation Bisacodyl (Dulcolax Supp) 10 mg RECTAL DAILY PRN PRN Reason: SEVERE CONSITIPATION Sterile Water 700 ml/ (Lactulose 300 ml) 0 ml RECTAL Q6H DELANO Dextrose (D50w Vial) 50 ml IV.PUSH UNSCH PRN PRN Reason: PER HYPOGLYCEMIA PROTOCOL Folic Acid (Folic Acid) 1 mg PO DAILY [facility] Last Admin: 01/30/18 11:19 Dose: Not Given Glucagon (Glucagon Inj) 1 mg OTHER UNSCH PRN PRN Reason: for Hypoglycemia Protocol Potassium Chloride/Sodium Chloride (Ns + Kcl 20 Meq Inj) 1,000 mls @ 100 mls/ hr IV.CONT .Q10H [facility] Last Admin: 01/30/18 11:20 Dose: 100 mls/hr Magnesium Sulfate Inj 4 gm/ (Sodium Chloride) 100 mls @ 50 mls/hr IV.SIG UNSCH PRN PRN Reason: For Magnesium 0.9 - 1.1 mg/dL Magnesium Sulfate Inj 2 gm/ (Sodium Chloride) 100 mls @ 50 mls/hr IV.SIG UNSCH PRN PRN Reason: For Magnesium 1.2 - 1.6 mg/dL Potassium Chloride (Kcl 40 Meq Premix Inj) 40 meq in 100 mls @ 25 mls/hr IV.SIG Q2H PRN PRN Reason: For Potassium 2.8 - 3.2 mEq/L Potassium Chloride (Kcl 20 Meq Premix Inj) 20 meq in 100 mls @ 50 mls/hr IV.SIG Q2H PRN PRN Reason: For Potassium 3.3 - 3.5 mEq/L Potassium Chloride (Kcl 40 Meq Premix Inj) 40 meq in 100 mls @ 25 mls/hr IV.SIG UNSCH PRN PRN Reason: For Potassium 3.3 - 3.5 mEq/L Potassium Chloride (Kcl 20 Meq Premix Inj) 20 meq in 100 mls @ 50 mls/hr IV.SIG Q2H PRN PRN Reason: For Potassium 2.8 - 3.2 mEq/L Potassium Phosphate 30 mmol/ (Sodium Chloride) 260 mls @ 42 mls/hr IV.SIG UNSCH PRN PRN Reason: SEE LABEL COMMENTS Sodium Phosphate 30 mmol/ (Sodium Chloride) 260 mls @ 42 mls/hr IV.SIG UNSCH PRN PRN Reason: For Phosphorus < 2.5 mg/dL Insulin Aspart (Novolog Insulin Correctional Sugar Inj) 0 unit SQ ACHS [facility]; Protocol Lactulose (Lactulose Liq) 30 ml PO Q8H [facility] Last Admin: 01/30/18 06:43 Dose: 30 ml Magnesium Oxide (Mag-Ox) 800 mg PO UNSCH PRN PRN Reason: For Magnesium 1.2 - 1.6 mg/dL Potassium Bicarb/Potassium Chloride (K-Lyte Cl Eff) 50 meq PO UNSCH PRN PRN Reason: For Potassium 3.3 - 3.5 mEq/L Potassium Phosphate (K-Phos Original) 2,000 mg PO Q4H PRN PRN Reason: Phosphorus Less Than 2.5 mg/dL Potassium Phosphate (K-Phos Original) 2,000 mg PO UNSCH PRN PRN Reason: SEE LABEL COMMENTS Propranolol HCl (Inderal) 10 mg PO BID [facility] Last Admin: 01/30/18 11:20 Dose: Not Given Rifaximin (Xifaxan) 550 mg PO Q12HR [facility] Sennosides (Senokot) 17.2 mg PO Q12H PRN PRN Reason: Moderate Constipation Sodium Chloride (Ns Flush) 2 ml IV.FLUSH BID [facility] Last Admin: 01/30/18 11:20 Dose: 2 ml Sodium Chloride (Ns Flush) 2 ml IV.FLUSH PRN PRN PRN Reason: FLUSH AFTER USING IV ACCESS Spironolactone (Aldactone) 50 mg PO DAILY [facility] Last Admin: 01/30/18 11:19 Dose: Not Given Allergies Allergy/AdvReac Type Severity Reaction Status Date / Time No Known Allergies Allergy Unverified 01/29/18 20:46 Home Medications Medication Instructions Recorded Confirmed Type folic acid 1 mg PO DAILY 01/29/18 01/29/18 History furosemide 40 mg PO DAILY 01/29/18 01/29/18 History hydrochlorothiazide 25 mg PO DAILY 01/29/18 01/29/18 History lactulose 20 g PO BID 01/29/18 01/29/18 History Advance Directives Living Will: No Healthcare Surrogate: No Power of Chief Meteorologist: No Today's verbally stated goals: Patient unable to state goals. . Family/friends goals: states patient would not wish to be intubated or have a lot of aggressive interventions. At this time she is requesting a DO NOT RESUSCITATE status. . Ethical and Legal Issues: None noted. . Physical Exam Vital Signs: Vital Signs - 24 hr 01/29/18 20:39 01/29/18 20:47 01/29/18 23:00 Temperature 98.2 F 97.8 F Pulse Rate 76 72 74 Respiratory Rate 10 L 10 L 12 Blood Pressure 133/62 134/64 126/61 Pulse Oximetry 100 100 100 01/30/18 01:00 01/30/18 05:00 01/30/18 08:24 Temperature 98.7 F Pulse Rate 76 80 78 Respiratory Rate 10 L 10 L 17 Blood Pressure 116/58 L 113/59 L 114/56 L Pulse Oximetry 100 01/30/18 08:47 01/30/18 12:57 Temperature Pulse Rate 75 78 Respiratory Rate 18 18 Blood Pressure 116/56 L 129/62 Pulse Oximetry 98 99 I&O: Intake & Output 01/28/18 01/29/18 01/30/18 01/31/18 06:59 06:59 06:59 06:59 Intake Total 1000 / 1000 Output Total 800 / 800 Balance 200 / 200 Weight 175 lb Physical Exam: CONSTITUTIONAL/GENERAL: This is an adequately nourished patient, obtunded, in no apparent distress. TUBES/LINES/DRAINS: PIV, Cherry. SKIN: Generalized jaundice, no rashes, or lesions. Dry flaking skin. No wounds seen anteriorly. Skin temperature appropriate. Not diaphoretic. HEAD: Atraumatic. Normocephalic. EYES: Pupils equal and round and reactive. Extraocular motions intact. Positive scleral icterus. Fundi not examined. ENT: Nose without bleeding or purulent drainage. NECK: Trachea midline. Supple, nontender. No palpable thyroid enlargement or nodularity. CARDIOVASCULAR: Regular rate and rhythm without murmurs, gallops, or rubs. No JVD. Peripheral pulses symmetric. RESPIRATORY/CHEST: Symmetric, unlabored respirations. Clear to auscultation. Breath sounds equal bilaterally. No wheezes, rales, or rhonchi. GASTROINTESTINAL: Abdomen soft, non-tender, nondistended. Positive hepatomegaly , no palpable masses. No guarding. Bowel sounds present. GENITOURINARY: Without palpable bladder distension. Cherry catheter in place. MUSCULOSKELETAL: Extremities without clubbing or cyanosis, 1+ dependent edema. No joint tenderness or effusion noted. No calf tenderness. No mottling or clubbing. LYMPHATICS: No palpable cervical or supraclavicular adenopathy. NEUROLOGICAL: Obtunded PSYCHIATRIC: Obtunded. . Diagnostic Tests Laboratory: Laboratory Results - last 72 hr 01/29/18 01/29/18 01/29/18 20:45 20:45 20:45 WBC 5.5 RBC 2.35 L Hgb 9.3 L Hct 24.9 L MCV 106.0 H MCH 39.5 H MCHC 37.2 H RDW 17.8 H Plt Count 49 L MPV 8.1 Prelim Diff (Auto) Slide review pending Neut % (Auto) 78.7 H Lymph % (Auto) 10.3 [place]en % (Auto) 10.2 H Eos % (Auto) 0.6 Baso % (Auto) 0.2 Neut # (Auto) 4.4 Lymph # (Auto) 0.6 L [place] # (Auto) 0.6 Eos # (Auto) 0.0 Baso # (Auto) 0.0 WBC Differential . Diff Scan Auto diff confirmed Differential Comment . Ovalocytes Melissa Cells 1+ H Acanthocytes (Spur) 1+ H Keratocytes 1+ H PT 18.7 H INR 1.8 APTT 40.1 H Puncture Site Patient Temperature O2 Saturation ABG pH ABG pCO2 ABG pO2 ABG HCO3 ABG O2 Content ABG Base Excess ABG Methemoglobin Michael Test Hemoglobin Carboxyhemoglobin Inspired O2 Critical Value Sodium Potassium Chloride Carbon Dioxide Anion Gap BUN Creatinine Estimated GFR Random Glucose Lactic Acid Calcium Magnesium Total Bilirubin AST ALT Alkaline Phosphatase Ammonia Total Creatine Kinase Troponin I Total Protein Albumin Lipase TSH 0.853 Urine Color Urine Clarity Urine pH Ur Specific [place] Urine Protein Urine Glucose (UA) Urine Ketones Urine Occult Blood Urine Nitrate Urine Bilirubin Urine Ictotest Urine Urobilinogen Ur Leukocyte Esterase Urine RBC Urine WBC Urine Mucus Micro UA Comment Urine Culture Comments Urine Opiates Screen Ur Barbiturates Screen Ur Amphetamines Screen U Benzodiazepines Scrn Urine Cocaine Screen U Cannabinoids Screen Serum Alcohol Less than 3 01/29/18 01/29/18 01/29/18 20:45 20:45 20:53 WBC RBC Hgb Hct MCV MCH MCHC RDW Plt Count MPV Prelim Diff (Auto) Neut % (Auto) Lymph % (Auto) [place] % (Auto) Eos % (Auto) Baso % (Auto) Neut # (Auto) Lymph # (Auto) [place] # (Auto) Eos # (Auto) Baso # (Auto) WBC Differential Diff Scan Differential Comment Ovalocytes Melissa Cells Acanthocytes (Spur) Keratocytes PT INR APTT Puncture Site Patient Temperature O2 Saturation ABG pH ABG pCO2 ABG pO2 ABG HCO3 ABG O2 Content ABG Base Excess ABG Methemoglobin Michael Test Hemoglobin Carboxyhemoglobin Inspired O2 Critical Value Sodium 121 L* Potassium 2.8 L* Chloride 83 L Carbon Dioxide 21.5 Anion Gap 17 H BUN 41 H Creatinine 1.07 Estimated GFR 74 L Random Glucose 116 H Lactic Acid 2.2 H Calcium 7.6 L Magnesium Total Bilirubin 23.5 H AST 80 H ALT 92 H Alkaline Phosphatase 118 H Ammonia Total Creatine Kinase 33 L Troponin I 0.03 Total Protein 4.6 L Albumin 2.2 L Lipase 282 TSH Urine Color Urine Clarity Urine pH Ur Specific [place] Urine Protein Urine Glucose (UA) Urine Ketones Urine Occult Blood Urine Nitrate Urine Bilirubin Urine Ictotest Urine Urobilinogen Ur Leukocyte Esterase Urine RBC Urine WBC Urine Mucus Micro UA Comment Urine Culture Comments Urine Opiates Screen Ur Barbiturates Screen Ur Amphetamines Screen U Benzodiazepines Scrn Urine Cocaine Screen U Cannabinoids Screen Serum Alcohol 01/29/18 01/29/18 01/29/18 20:53 21:30 21:30 WBC RBC Hgb Hct MCV MCH MCHC RDW Plt Count MPV Prelim Diff (Auto) Neut % (Auto) Lymph % (Auto) [place] % (Auto) Eos % (Auto) Baso % (Auto) Neut # (Auto) Lymph # (Auto) [place] # (Auto) Eos # (Auto) Baso # (Auto) WBC Differential Diff Scan Differential Comment Ovalocytes [place] Cells Acanthocytes (Spur) Keratocytes PT INR APTT Puncture Site Patient Temperature O2 Saturation ABG pH ABG pCO2 ABG pO2 ABG HCO3 ABG O2 Content ABG Base Excess ABG Methemoglobin Michael Test Hemoglobin Carboxyhemoglobin Inspired O2 Critical Value Sodium Potassium Chloride Carbon Dioxide Anion Gap BUN Creatinine Estimated GFR Random Glucose Lactic Acid Calcium Magnesium Total Bilirubin AST ALT Alkaline Phosphatase Ammonia 178 H Total Creatine Kinase Troponin I Total Protein Albumin Lipase TSH Urine Color [place] Urine Clarity Clear Urine pH 6.0 Ur Specific [place] 1.011 Urine Protein Negative Urine Glucose (UA) Negative Urine Ketones Negative Urine Occult Blood Small H Urine Nitrate Negative Urine Bilirubin Small H Urine Ictotest Positive H Urine Urobilinogen 4 or greater Ur Leukocyte Esterase Negative Urine RBC Less than 1 Urine WBC 1 Urine Mucus Few H Micro UA Comment Cath-culture not ind Urine Culture Comments Cath-cult not ind Urine Opiates Screen Neg Ur Barbiturates Screen Neg Ur Amphetamines Screen Neg U Benzodiazepines Scrn Neg Urine Cocaine Screen Neg U Cannabinoids Screen Neg Serum Alcohol 01/30/18 01/30/18 01/30/18 00:15 07:42 07:42 WBC 6.1 RBC 2.51 L Hgb 9.7 L Hct 26.4 L MCV 105.5 H MCH 38.8 H MCHC 36.8 H RDW 18.5 H Plt Count 53 L MPV 7.7 Prelim Diff (Auto) Slide review pending Neut % (Auto) 79.1 H Lymph % (Auto) 11.0 [place] % (Auto) 9.5 H Eos % (Auto) 0.2 Baso % (Auto) 0.2 Neut # (Auto) 4.8 Lymph # (Auto) 0.7 L [place] # (Auto) 0.6 Eos # (Auto) 0.0 Baso # (Auto) 0.0 WBC Differential . Diff Scan Auto diff confirmed Differential Comment . Ovalocytes 1+ H Melissa Cells 1+ H Acanthocytes (Spur) 2+ H Keratocytes 1+ H PT 19.2 H INR 1.9 APTT Puncture Site Patient Temperature O2 Saturation ABG pH ABG pCO2 ABG pO2 ABG HCO3 ABG O2 Content ABG Base Excess ABG Methemoglobin Michael Test Hemoglobin Carboxyhemoglobin Inspired O2 Critical Value Sodium Potassium Chloride Carbon Dioxide Anion Gap BUN Creatinine Estimated GFR Random Glucose Lactic Acid 1.8 Calcium Magnesium Total Bilirubin AST ALT Alkaline Phosphatase Ammonia Total Creatine Kinase Troponin I Total Protein Albumin Lipase TSH Urine Color Urine Clarity Urine pH Ur Specific [place] Urine Protein Urine Glucose (UA) Urine Ketones Urine Occult Blood Urine Nitrate Urine Bilirubin Urine Ictotest Urine Urobilinogen Ur Leukocyte Esterase Urine RBC Urine WBC Urine Mucus Micro UA Comment Urine Culture Comments Urine Opiates Screen Ur Barbiturates Screen Ur Amphetamines Screen U Benzodiazepines Scrn Urine Cocaine Screen U Cannabinoids Screen Serum Alcohol 01/30/18 01/30/18 07:42 10:23 WBC RBC Hgb Hct MCV MCH MCHC RDW Plt Count MPV Prelim Diff (Auto) Neut % (Auto) Lymph % (Auto) [place] % (Auto) Eos % (Auto) Baso % (Auto) Neut # (Auto) Lymph # (Auto) [place] # (Auto) Eos # (Auto) Baso # (Auto) WBC Differential Diff Scan Differential Comment Ovalocytes Melissa Cells Acanthocytes (Spur) Keratocytes PT INR APTT Puncture Site Right radial Patient Temperature 98.6 O2 Saturation 95 ABG pH 7.54 H* ABG pCO2 26 L ABG pO2 88 ABG HCO3 22 ABG O2 Content 12.0 ABG Base Excess -0.5 ABG Methemoglobin 0.0 Michael Test Present Hemoglobin 8.9 L Carboxyhemoglobin 3.3 Inspired O2 21 Critical Value Yes Sodium 125 L Potassium 3.1 L Chloride 90 L Carbon Dioxide 22.5 Anion Gap 13 BUN 44 H Creatinine 1.24 Estimated GFR 62 L Random Glucose 115 H Lactic Acid Calcium 7.7 L Magnesium 2.4 Total Bilirubin 23.6 H AST 79 H ALT 95 H Alkaline Phosphatase 120 H Ammonia Total Creatine Kinase Troponin I Total Protein 4.7 L Albumin 2.3 L Lipase TSH Urine Color Urine Clarity Urine pH Ur Specific [place] Urine Protein Urine Glucose (UA) Urine Ketones Urine Occult Blood Urine Nitrate Urine Bilirubin Urine Ictotest Urine Urobilinogen Ur Leukocyte Esterase Urine RBC Urine WBC Urine Mucus Micro UA Comment Urine Culture Comments Urine Opiates Screen Ur Barbiturates Screen Ur Amphetamines Screen U Benzodiazepines Scrn Urine Cocaine Screen U Cannabinoids Screen Serum Alcohol Result Diagrams: 01/30/18 07:42 01/30/18 07:42 Microbiology: Microbiology 01/29/18 20:45 Aerobic Blood Culture - Preliminary Blood - Peripheral No growth in 1 day Anaerobic Blood Culture - Preliminary No growth in 1 day 01/29/18 20:15 Aerobic Blood Culture - Preliminary Blood - Peripheral No growth in 1 day Anaerobic Blood Culture - Preliminary No growth in 1 day Imaging: Chest X-Ray 01/29/18 20:46 CONCLUSION: No acute cardiopulmonary process. Head CT 01/29/18 20:46 CONCLUSION: 1. Small area of low density in the medial right basal ganglia likely related to a recent lacunar infarct. 2. Mild area of decreased density in the left cerebral white matter representing either a prior lacunar infarct or an area of demyelination. 3. No acute areas of hemorrhage or mass effect is seen. Carotid Doppler Study 01/30/18 00:00 CONCLUSION: No evidence of flow-limiting carotid stenosis. Procedures: None. . Patient/Family Conference Present at Family Conference: Spoke with at bedside, reviewed palliative care purpose and focus, reviewed clinical findings, laboratory studies, radiology studies, specialist recommendations. Reviewed goals of care to include her understanding of his current medical illness. She is appropriately tearful, anxious and somewhat distraught. She put her 13-year-old daughter and her daughter's friend on a plane back to [place] this morning to be cared for by her 24 and 27-year-old sons until her return, adding more pressure to her current situation. She is appreciative of the update and requested that I speak with the patient's mother to give her an update, which I agreed to do. Palliative care contact information was provided for further questions or concerns. Shortly after discussing with the , the patient's mother did contact me with a multitude of questions regarding lactulose administration and hope for full recovery. I again reviewed clinical data to include laboratory and radiology studies. She inquired about lactulose enemas and the administration of lactulose if he remained too lethargic to swallow. I advised her that that was an option to be reviewed if needed. Palliative care contact information was also provided to her for any further questions or concerns. . Issues Discussed: * Palliative care role, purpose, approach * Additional medical, psychosocial, and spiritual history * Patients general health, functional status, and cognitive changes in the months leading up to the current hospitalization * Patient/family understanding of the current medical problems * Patient/family understanding of prognosis * Patients goals of care as best understood from advance directives and/or conversations and/or values * Current medical treatment options and benefits/burdens of those options * Likely scenarios comparing ongoing aggressive care with a transition to comfort measures only * Questions answered to the best of my ability * Palliative care contact information provided Assessment and Plan Pertinent Non-Medical Issues: Psychosocial: He was born in [place] and continues to live and worked there. 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 He has a and 3 children, one 13-year-old daughter, 2 sons, 24 and 27 years old. Spiritual: Not an important concept to the patient. Legal: No advanced directives have been completed. Per [place] statutes, his would be the proxy decision-maker. Ethical issues impacting care: None noted. . Important Contacts: : Michelle Kilpatrick Prognosis: His prognosis is poor. He is severely jaundiced, ammonia of 178 in spite of some ingestion of lactulose since his discharge from the hospital in [place] 4 weeks ago. He has not been consistent in taking his lactulose, however in spite of intermittent indigestion, his ammonia continues to rise. He is auto anticoagulated with an INR of 1.9. His bilirubin is over 23. He is critically ill, very lethargic and per his 's discussion with me, he would not wish to be intubated or resuscitated. The possibility must be entertained that he will not survive this hospitalization. . Code Status: No Code DNR Plan: PLAN: Legal decision maker: As patient is incapacitated to make his own decisions due to lethargy, per [place] statutes, his would be his proxy decision- maker. Goals: Aggressive short of no code. CODE STATUS: DNR SYMPTOMS: * Lethargy: Multifactorial to include elevated ammonia level, liver failure. He is receiving lactulose and Xifaxan has been added to his regimen by GI. Due to the lethargy, he may not be able to swallow medications and may require a Dobbhoff versus lactulose enemas. * Nausea: The states he has become nauseated more frequently and has vomited as recently as 4 days ago. No anti-emetics is currently ordered. Would recommend adding a PRN antiemetic. SUMMARY This is a 47-year-old male with liver failure, cirrhosis, hyperammonemia, hyperbilirubinemia with metabolic derangements currently obtunded. He stopped drinking 4-5 weeks ago after being diagnosed with cirrhosis and liver failure. His states that he did not wish to see doctors or be treated medically and so would not wish any aggressive interventions to include intubation or resuscitation. Though she wishes to continue aggressive medication management, she has made him a DO NOT RESUSCITATE status. Palliative care will continue to follow the patient during hospital course as condition evolves, to assist patient/decision-maker with understanding of their medical conditions, weighing benefits/burdens of treatment options, for clarification of goals of treatment. Additionally will assist with any symptoms of palliative concern. . Appreciation Thank you for the opportunity to participate in the care of Al Kilpatrick. Attestation Attestation: To help prompt me to consider important information that might be impacting today's encounter and assessment, information from prior notes written by myself or my colleagues may have been "brought forward" into today's note. My signature on this note, however, is an attestation that I personally performed the exam, history, and/or decision-making noted today, and, unless otherwise indicated, the interactions with patient, family, and staff as well as the review of records all occurred today. I also attest that the listed assessment and stated plan reflect my best clinical judgment today based on the combination of historical information, prior notes, and today's exam/ interactions. When time spent is documented, it refers only to time spent today by the signer, or if indicated, combined time spent today by collaborating physician/nurse practitioner. .
--- NOTE | 2018-01-30 17:29 | ECG ---
Date Performed: 01/29/2018 Time Performed: 20:34:06 PTAGE: 47 years EKG: Sinus rhythm WITH OCCASIONAL VENTRICULAR PREMATURE COMPLEXES BORDERLINE LEFT AXIS DEVIATION MODERATE INTRAVENTRIC ULAR CONDUCTION DELAY NONSPECIFIC T-WAVE ABNORMALITY BORDERLINE ECG NO PREVIOUS TRACING DOCTOR: Stef Ma Interpretating Date/Time 01/30/2018 17:28:01
[2018-01-30] MEDS: Water Sterile for Irr Bot 700 ML, Lactulose Liq 300 ML RECTAL SCH ×2 (17:36)
[2018-01-30] MEDS: Insulin NovoLOG Aspart Correctional Sugar Inj SQ SCH ×2 (18:19→20:42)
[2018-01-30] MEDS: rifAXIMin 550 MG Tablet PO SCH (20:40)
[2018-01-31] MEDS: Water Sterile for Irr Bot 700 ML, Lactulose Liq 300 ML RECTAL SCH ×8 (03:23→16:03)
[2018-01-31] MEDS: Chlorhexidine Gluconate 2% 1 Pack (2 Cloths) TOPICAL SCH (03:44)
[2018-01-31] MEDS ORDERED: Chlorhexidine Gluconate 2% 1 Pack (2 Cloths) TOPICAL PRN (04:00)
[2018-01-31 08:04] LABS: Baso % (Auto) 0.1 % (0.0-2.0); Eos # (Auto) 0.1 th/mm3 (0.0-0.4); Eos % (Auto) 0.8 % (0.0-4.0); Hematocrit 24.5 % (39.0-51.0); Lymph # (Auto) 0.7 th/mm3 (1.0-4.8); Lymph % (Auto) 10.3 % (9.0-44.0); Mean Corpuscular Volume 109.1 fL (80.0-100.0); Mean Platelet Volume 7.4 fL (7.0-11.0); Mono # (Auto) 0.5 th/mm3 (0.0-0.9); Mono % (Auto) 8.4 % (0.0-8.0); Neut # (Auto) 5.1 th/mm3 (1.8-7.7); Neut % (Auto) 80.4 % (16.0-70.0); Platelet Count 48 th/mm3 (150-450); Red Blood Count 2.25 mil/mm3 (4.50-5.90); Red Cell Distribution Width 17.6 % (11.6-17.2); White Blood Count 6.4 th/mm3 (4.0-11.0)
[2018-01-31 08:06] LABS: Mean Corpuscular HGB Conc 36.7 % (32.0-36.0)
[2018-01-31] MEDS: Folic Acid 1 MG Tablet PO SCH (08:16)
[2018-01-31] MEDS: Spironolactone 50 MG Tablet PO SCH (08:16)
[2018-01-31] MEDS: Propranolol 10 MG Tablet PO SCH ×2 (08:16→21:48)
[2018-01-31] MEDS: rifAXIMin 550 MG Tablet PO SCH ×2 (08:16→21:48)
[2018-01-31] MEDS: Insulin NovoLOG Aspart Correctional Sugar Inj SQ SCH ×4 (08:19→21:49)
[2018-01-31 08:24] LABS: Anion Gap 14 meq/L (5-15); Aspartate Aminotransferase 70 U/L (15-37); Blood Urea Nitrogen 46 mg/dL (7-18); Calcium 8.5 mg/dL (8.5-10.1); Carbon Dioxide 19.2 meq/L (21.0-32.0); Chloride 98 meq/L (98-107); Glomerular Filtration Rate 57 mL/min (>89); Glucose,Random 108 mg/dL (74-106); Magnesium 2.7 mg/dL (1.5-2.5); Potassium 3.3 meq/L (3.5-5.1); Sodium 131 meq/L (136-145)
[2018-01-31 08:31] LABS: Alanine Aminotransferase 87 U/L (12-78); Alkaline Phosphatase 119 U/L (45-117); Total Protein 4.4 g/dL (6.4-8.2)
[2018-01-31 08:33] LABS: Acanthocytes Occ; Burr Cells 1+; Toxic Granulation 2+
--- NOTE | 2018-01-31 12:05 | P.PNGI ---
Subjective Interval history: Pt opens eyes when stimulated, nonverbal. No family at bedside. <Malika Weeks - Last Filed: 01/31/18 12:02> Physical Exam Vital signs: Vital Signs 01/30/18 12:57 01/30/18 17:37 01/30/18 18:21 Temperature Pulse Rate 78 77 Respiratory Rate 18 18 Blood Pressure 129/62 127/58 L Pulse Oximetry 99 100 99 01/30/18 18:45 01/30/18 18:46 01/30/18 18:56 Temperature 97.5 F L Pulse Rate 91 H 92 H 80 Respiratory Rate 11 L 20 Blood Pressure 137/95 H 132/83 Pulse Oximetry 99 01/30/18 19:00 01/30/18 19:30 01/30/18 19:56 Temperature Pulse Rate 86 83 80 Respiratory Rate 15 8 L Blood Pressure 137/64 132/65 Pulse Oximetry 95 100 01/30/18 20:00 01/30/18 20:30 01/30/18 21:00 Temperature 97.6 F Pulse Rate 85 88 76 Respiratory Rate 19 27 H 13 Blood Pressure 139/66 141/76 H 141/67 H Pulse Oximetry 100 100 100 01/30/18 21:30 01/30/18 22:00 01/30/18 22:30 Temperature Pulse Rate 71 72 65 Respiratory Rate 9 L 9 L 6 L Blood Pressure 106/58 L 112/60 138/65 Pulse Oximetry 100 100 100 01/30/18 23:00 01/30/18 23:03 01/31/18 00:00 Temperature 97.8 F Pulse Rate 74 72 63 Respiratory Rate 31 H 11 L 7 L Blood Pressure 137/62 137/62 Pulse Oximetry 100 100 100 01/31/18 01:00 01/31/18 02:00 01/31/18 02:21 Temperature Pulse Rate 66 62 59 L Respiratory Rate 15 13 10 L Blood Pressure 106/59 L Pulse Oximetry 100 100 100 01/31/18 03:00 01/31/18 04:00 01/31/18 05:00 Temperature 98.0 F Pulse Rate 59 L 66 64 Respiratory Rate 10 L 9 L 9 L Blood Pressure 104/55 L 109/55 L 115/55 L Pulse Oximetry 100 100 100 01/31/18 06:00 01/31/18 06:01 07/17/18 07:00 Temperature Pulse Rate 77 68 67 Respiratory Rate 19 12 8 L Blood Pressure 146/75 H 99/59 L Pulse Oximetry 98 100 100 01/31/18 08:00 01/31/18 09:00 01/31/18 10:00 Temperature 97.7 F Pulse Rate 64 66 59 L Respiratory Rate 6 L 8 L 8 L Blood Pressure 120/61 136/58 L 101/56 L Pulse Oximetry 100 100 100 01/31/18 11:00 Temperature Pulse Rate 57 L Respiratory Rate 7 L Blood Pressure 113/60 Pulse Oximetry 100 Intake & Output 01/30/18 01/31/18 01/31/18 18:59 06:59 18:59 Intake Total 1000 / 1000 1480 / 1480 Output Total 800 / 800 1100 / 1100 Balance 200 / 200 380 / 380 Weight 78 kg Intake: IV 1000 / 1000 1000 / 1000 NS + KCl 20 mEq Inj 1,000 ML @ 1000 / 1000 1000 / 1000 100 mls/hr IV.CONT .Q10H DELANO Rx #:[id number] Oral 480 / 480 Output: Urine 1100 / 1100 Urine Amount (Catheter) 800 / 800 Indwelling Urethral Catheter 800 / 800 Other: Date of Last Bowel Movement 01/31/18 01/31/18 # Incontinent Bowel Movements 2 Weight On Admission 77 kg - Constitutional no acute distress - Routine HEENT Exam Head: Present: normocephalic, atraumatic Eye: Present: conjunctival icterus - Routine Respiratory Exam Absent: accessory muscle use - Routine Cardiovascular Exam Present: RRR - Routine Abdominal Exam Present: soft, normoactive bowel sounds. Absent: distended - Routine Skin Exam Present: jaundice - Urinary Catheter Management Indwelling Urethral Catheter Cath placed during this visit: yes, but has since been removed by the nurse Reason for continuing: Decision to DC catheter Insertion date: 01/30/18 Removal date: 01/31/18 Removal time: 10:30 <Malika Weeks - Last Filed: 01/31/18 12:02> Vital signs: Vital Signs 01/30/18 17:37 01/30/18 18:21 01/30/18 18:45 Temperature Pulse Rate 77 91 H Respiratory Rate 18 Blood Pressure 127/58 L Pulse Oximetry 100 99 01/30/18 18:46 01/30/18 18:56 01/30/18 19:00 Temperature 97.5 F L Pulse Rate 92 H 80 86 Respiratory Rate 11 L 20 15 Blood Pressure 137/95 H 132/83 137/64 Pulse Oximetry 99 95 01/30/18 19:30 01/30/18 19:56 01/30/18 20:00 Temperature 97.6 F Pulse Rate 83 80 85 Respiratory Rate 8 L 19 Blood Pressure 132/65 139/66 Pulse Oximetry 100 100 01/30/18 20:30 01/30/18 21:00 01/30/18 21:30 Temperature Pulse Rate 88 76 71 Respiratory Rate 27 H 13 9 L Blood Pressure 141/76 H 141/67 H 106/58 L Pulse Oximetry 100 100 100 01/30/18 22:00 01/30/18 22:30 01/30/18 23:00 Temperature Pulse Rate 72 65 74 Respiratory Rate 9 L 6 L 31 H Blood Pressure 112/60 138/65 Pulse Oximetry 100 100 100 01/30/18 23:03 01/31/18 00:00 01/31/18 01:00 Temperature 97.8 F Pulse Rate 72 63 66 Respiratory Rate 11 L 7 L 15 Blood Pressure 137/62 137/62 Pulse Oximetry 100 100 100 01/31/18 02:00 01/31/18 02:21 01/31/18 03:00 Temperature Pulse Rate 62 59 L 59 L Respiratory Rate 13 10 L 10 L Blood Pressure 106/59 L 104/55 L Pulse Oximetry 100 100 100 01/31/18 04:00 01/31/18 05:00 01/31/18 06:00 Temperature 98.0 F Pulse Rate 66 64 77 Respiratory Rate 9 L 9 L 19 Blood Pressure 109/55 L 115/55 L Pulse Oximetry 100 100 98 01/31/18 06:01 01/31/18 07:00 01/31/18 08:00 Temperature 97.7 F Pulse Rate 68 67 64 Respiratory Rate 12 8 L 6 L Blood Pressure 146/75 H 99/59 L 120/61 Pulse Oximetry 100 100 100 01/31/18 09:00 01/31/18 10:00 01/31/18 11:00 Temperature Pulse Rate 66 59 L 57 L Respiratory Rate 8 L 8 L 7 L Blood Pressure 136/58 L 101/56 L 113/60 Pulse Oximetry 100 100 100 Intake & Output 01/30/18 01/31/18 01/31/18 18:59 06:59 18:59 Intake Total 1000 / 1000 1480 / 1480 1000 / 1000 Output Total 800 / 800 1100 / 1100 Balance 200 / 200 380 / 380 1000 / 1000 Weight 78 kg Intake: IV 1000 / 1000 1000 / 1000 1000 / 1000 NS + KCl 20 mEq Inj 1,000 ML @ 1000 / 1000 1000 / 1000 1000 / 1000 100 mls/hr IV.CONT .Q10H DELANO Rx #:[id number] Oral 480 / 480 Output: Urine 1100 / 1100 Urine Amount (Catheter) 800 / 800 Indwelling Urethral Catheter 800 / 800 Other: Date of Last Bowel Movement 01/31/18 01/31/18 # Incontinent Bowel Movements 2 Weight On Admission 77 kg - Urinary Catheter Management Indwelling Urethral Catheter Cath placed during this visit: no <Killian Dyer E - Last Filed: 01/31/18 16:27> Results - Labs CBC & Chem 7: 01/31/18 06:03 01/31/18 06:03 Laboratory Results - last 24 hr 01/30/18 01/30/18 01/30/18 07:42 17:43 18:50 WBC RBC Hgb Hct MCV MCH MCHC RDW Plt Count MPV Prelim Diff (Auto) Neut % (Auto) Lymph % (Auto) [place] % (Auto) Eos % (Auto) Baso % (Auto) Neut # (Auto) Lymph # (Auto) [place] # (Auto) Eos # (Auto) Baso # (Auto) WBC Differential Diff Scan Differential Comment Toxic Granulation Melvin Cells Acanthocytes (Spur) Keratocytes Sodium 125 L Potassium 3.1 L Chloride 90 L Carbon Dioxide 22.5 Anion Gap 13 BUN 44 H Creatinine 1.24 Estimated GFR 62 L POC Glucose 135 H Random Glucose 115 H Calcium 7.7 L Magnesium 2.4 Total Bilirubin 23.6 H AST 79 H ALT 95 H Alkaline Phosphatase 120 H Ammonia Total Protein 4.7 L Albumin 2.3 L Nasal Screen MRSA (PCR) Not detected 01/30/18 01/31/18 01/31/18 20:26 06:03 06:03 WBC 6.4 RBC 2.25 L Hgb 9.0 L Hct 24.5 L MCV 109.1 H D MCH 40.0 H MCHC 36.7 H RDW 17.6 H Plt Count 48 L MPV 7.4 Prelim Diff (Auto) Slide review pending Neut % (Auto) 80.4 H Lymph % (Auto) 10.3 [place] % (Auto) 8.4 H Eos % (Auto) 0.8 Baso % (Auto) 0.1 Neut # (Auto) 5.1 Lymph # (Auto) 0.7 L [place] # (Auto) 0.5 Eos # (Auto) 0.1 Baso # (Auto) 0.0 WBC Differential . Diff Scan Auto diff confirmed Differential Comment . Toxic Granulation 2+ H Melvin Cells 1+ H Acanthocytes (Spur) Occ H Keratocytes 1+ H Sodium 131 L Potassium 3.3 L Chloride 98 D Carbon Dioxide 19.2 L Anion Gap 14 BUN 46 H Creatinine 1.34 H Estimated GFR 57 L POC Glucose 142 H Random Glucose 108 H Calcium 8.5 D Magnesium 2.7 H Total Bilirubin 26.0 H AST 70 H ALT 87 H Alkaline Phosphatase 119 H Ammonia Total Protein 4.4 L Albumin 2.0 L Nasal Screen MRSA (PCR) 01/31/18 11:19 WBC RBC Hgb Hct MCV MCH MCHC RDW Plt Count MPV Prelim Diff (Auto) Neut % (Auto) Lymph % (Auto) [place] % (Auto) Eos % (Auto) Baso % (Auto) Neut # (Auto) Lymph # (Auto) [place] # (Auto) Eos # (Auto) Baso # (Auto) WBC Differential Diff Scan Differential Comment Toxic Granulation Melissa Cells Acanthocytes (Spur) Keratocytes Sodium Potassium Chloride Carbon Dioxide Anion Gap BUN Creatinine Estimated GFR POC Glucose Random Glucose Calcium Magnesium Total Bilirubin AST ALT Alkaline Phosphatase Ammonia 21 Total Protein Albumin Nasal Screen MRSA (PCR) Microbiology 01/29/18 20:45 Blood - Peripheral Aerobic Blood Culture - Preliminary No growth in 2 days 01/29/18 20:45 Blood - Peripheral Anaerobic Blood Culture - Preliminary No growth in 2 days 01/29/18 20:15 Blood - Peripheral Aerobic Blood Culture - Preliminary No growth in 2 days 01/29/18 20:15 Blood - Peripheral Anaerobic Blood Culture - Preliminary No growth in 2 days - Imaging Impressions Carotid Doppler Study 01/30/18 00:00 CONCLUSION: No evidence of flow-limiting carotid stenosis. - Procedures none <Malika Weeks - Last Filed: 01/31/18 12:02> - Labs CBC & Chem 7: 01/31/18 06:03 01/31/18 06:03 Laboratory Results - last 24 hr 01/30/18 01/30/18 01/30/18 17:43 18:50 20:26 WBC RBC Hgb Hct MCV MCH MCHC RDW Plt Count MPV Prelim Diff (Auto) Neut % (Auto) Lymph % (Auto) [place] % (Auto) Eos % (Auto) Baso % (Auto) Neut # (Auto) Lymph # (Auto) [place] # (Auto) Eos # (Auto) Baso # (Auto) WBC Differential Diff Scan Differential Comment Toxic Granulation Melvin Cells Acanthocytes (Spur) Keratocytes Sodium Potassium Chloride Carbon Dioxide Anion Gap BUN Creatinine Estimated GFR POC Glucose 135 H 142 H Random Glucose Calcium Magnesium Total Bilirubin AST ALT Alkaline Phosphatase Ammonia Total Protein Albumin Nasal Screen MRSA (PCR) Not detected 01/31/18 01/31/18 01/31/18 06:03 06:03 11:19 WBC 6.4 RBC 2.25 L Hgb 9.0 L Hct 24.5 L MCV 109.1 H D MCH 40.0 H MCHC 36.7 H RDW 17.6 H Plt Count 48 L MPV 7.4 Prelim Diff (Auto) Slide review pending Neut % (Auto) 80.4 H Lymph % (Auto) 10.3 [place] % (Auto) 8.4 H Eos % (Auto) 0.8 Baso % (Auto) 0.1 Neut # (Auto) 5.1 Lymph # (Auto) 0.7 L [place] # (Auto) 0.5 Eos # (Auto) 0.1 Baso # (Auto) 0.0 WBC Differential . Diff Scan Auto diff confirmed Differential Comment . Toxic Granulation 2+ H Melissa Cells 1+ H Acanthocytes (Spur) Occ H Keratocytes 1+ H Sodium 131 L Potassium 3.3 L Chloride 98 D Carbon Dioxide 19.2 L Anion Gap 14 BUN 46 H Creatinine 1.34 H Estimated GFR 57 L POC Glucose Random Glucose 108 H Calcium 8.5 D Magnesium 2.7 H Total Bilirubin 26.0 H AST 70 H ALT 87 H Alkaline Phosphatase 119 H Ammonia 21 Total Protein 4.4 L Albumin 2.0 L Nasal Screen MRSA (PCR) Microbiology 01/29/18 20:45 Blood - Peripheral Aerobic Blood Culture - Preliminary No growth in 2 days 01/29/18 20:45 Blood - Peripheral Anaerobic Blood Culture - Preliminary No growth in 2 days 01/29/18 20:15 Blood - Peripheral Aerobic Blood Culture - Preliminary No growth in 2 days 01/29/18 20:15 Blood - Peripheral Anaerobic Blood Culture - Preliminary No growth in 2 days <Killian Dyer - Last Filed: 01/31/18 16:27> Assessment and Plan (1) History of ETOH abuse Status: Acute Code(s): Z87.898 - Personal history of other specified conditions (2) Acute hepatic encephalopathy Status: Acute Code(s): K72.00 - Acute and subacute hepatic failure without coma (3) Cirrhosis Status: Acute Code(s): K74.60 - Unspecified cirrhosis of liver - Plan Assessment: - Cirrhosis- newly diagnosed during 13 day admission at [facility] a month ago (pt from [place], here on vacation) Per , pt was evaluated at hospital for extremity and abdominal swelling. Also has been jaundiced for multiple months. During admission pt placed on steroids for ETOH hepatitis which has since been tapered, had EGD which she states was normal. Denies paracentesis. States swelling improved significantly since being started on diuretics. Prior to admission pt had not seen a doctor in 30 years. Coagulopathy (INR 1.9) Hypoalbuminemia (albumin 2.3) Thrombocytopenia ( platelets 53) On admission (01/29) T bili-23.5 AST-80 ALT-92 Alk phos-118 - Encephalopathy- multifactorial- ammonia 178 as well as imaging consistent with recent lacunar infarct, left cerebral infarct vs demyelination Per pt has been increasingly lethargic since Tuesday, states has not been taking Lactulose as prescribed - History of ETOH abuse- no ETOH since 13 day admission at [facility] a month ago - Electrolyte imbalance- per [facility] (01/31) Pt in ICU. Eyes open to stimulation. Remains extremely lethargic. T bili increased today. Will add Solumedrol and Pentoxifylline. Ammonia now WNL Plan: Solumedrol Pentoxifylline Lactulose Xifaxan Inderal Spironolactone Monitor labs Supportive care Pt has been seen and examined by myself and Dr. Dyer and this note is written on his behalf <Malika Weeks - Last Filed: 01/31/18 12:02> (1) History of ETOH abuse Status: Acute Code(s): Z87.898 - Personal history of other specified conditions (2) Acute hepatic encephalopathy Status: Acute Code(s): K72.00 - Acute and subacute hepatic failure without coma (3) Cirrhosis Status: Acute Code(s): K74.60 - Unspecified cirrhosis of liver - Attending Attestation Patient seen and examined Agree with above Continue with current supportive care Monitor labs <Killian Dyer - Last Filed: 01/31/18 16:27>
[2018-01-31] MEDS: MethylPREDNISolone Sod Succinate Inj 40 MG/ML Vial IV.PUSH SCH ×2 (14:06→21:50)
--- NOTE | 2018-01-31 14:36 | P.PN ---
Subjective Interval history: Follow up for Alcoholic hepatitis. Patient is drowsy, does wake up on verbal commands, recognizes , follows simple commands. No fever, chills. Physical Exam Vital signs: Vital Signs 01/30/18 17:37 01/30/18 18:21 01/30/18 18:45 Temperature Pulse Rate 77 91 H Respiratory Rate 18 Blood Pressure 127/58 L Pulse Oximetry 100 99 01/30/18 18:46 01/30/18 18:56 01/30/18 19:00 Temperature 97.5 F L Pulse Rate 92 H 80 86 Respiratory Rate 11 L 20 15 Blood Pressure 137/95 H 132/83 137/64 Pulse Oximetry 99 95 01/30/18 19:30 01/30/18 19:56 01/30/18 20:00 Temperature 97.6 F Pulse Rate 83 80 85 Respiratory Rate 8 L 19 Blood Pressure 132/65 139/66 Pulse Oximetry 100 100 01/30/18 20:30 01/30/18 21:00 01/30/18 21:30 Temperature Pulse Rate 88 76 71 Respiratory Rate 27 H 13 9 L Blood Pressure 141/76 H 141/67 H 106/58 L Pulse Oximetry 100 100 100 01/30/18 22:00 01/30/18 22:30 01/30/18 23:00 Temperature Pulse Rate 72 65 74 Respiratory Rate 9 L 6 L 31 H Blood Pressure 112/60 138/65 Pulse Oximetry 100 100 100 01/30/18 23:03 01/31/18 00:00 01/31/18 01:00 Temperature 97.8 F Pulse Rate 72 63 66 Respiratory Rate 11 L 7 L 15 Blood Pressure 137/62 137/62 Pulse Oximetry 100 100 100 01/31/18 02:00 01/31/18 02:21 01/31/18 03:00 Temperature Pulse Rate 62 59 L 59 L Respiratory Rate 13 10 L 10 L Blood Pressure 106/59 L 104/55 L Pulse Oximetry 100 100 100 01/31/18 04:00 01/31/18 05:00 01/31/18 06:00 Temperature 98.0 F Pulse Rate 66 64 77 Respiratory Rate 9 L 9 L 19 Blood Pressure 109/55 L 115/55 L Pulse Oximetry 100 100 98 01/31/18 06:01 01/31/18 07:00 01/31/18 08:00 Temperature 97.7 F Pulse Rate 68 67 64 Respiratory Rate 12 8 L 6 L Blood Pressure 146/75 H 99/59 L 120/61 Pulse Oximetry 100 100 100 01/31/18 09:00 01/31/18 10:00 01/31/18 11:00 Temperature Pulse Rate 66 59 L 57 L Respiratory Rate 8 L 8 L 7 L Blood Pressure 136/58 L 101/56 L 113/60 Pulse Oximetry 100 100 100 Intake & Output 01/30/18 01/31/18 01/31/18 18:59 06:59 18:59 Intake Total 1000 / 1000 1480 / 1480 1000 / 1000 Output Total 800 / 800 1100 / 1100 Balance 200 / 200 380 / 380 1000 / 1000 Weight 78 kg Intake: IV 1000 / 1000 1000 / 1000 1000 / 1000 NS + KCl 20 mEq Inj 1,000 ML @ 1000 / 1000 1000 / 1000 1000 / 1000 100 mls/hr IV.CONT .Q10H DELANO Rx #:[id number] Oral 480 / 480 Output: Urine 1100 / 1100 Urine Amount (Catheter) 800 / 800 Indwelling Urethral Catheter 800 / 800 Other: Date of Last Bowel Movement 01/31/18 01/31/18 # Incontinent Bowel Movements 2 Weight On Admission 77 kg Narrative: GENERAL: Drowsy, wakes up on verbal commands, NAD, follows some simple commands. SKIN: Warm and dry - overall jaundiced. HEAD: Normocephalic. EYES: significant scleral icterus. No injection or drainage. NECK: Supple, trachea midline. No JVD or lymphadenopathy. CARDIOVASCULAR: Regular rate and rhythm without murmurs, gallops, or rubs. RESPIRATORY: Breath sounds equal bilaterally. No accessory muscle use. GASTROINTESTINAL: Abdomen soft, non-tender, nondistended. MUSCULOSKELETAL: No cyanosis, or edema. BACK: Nontender without obvious deformity. No CVA tenderness. - Urinary Catheter Management Indwelling Urethral Catheter Cath placed during this visit: yes, but has since been removed by the nurse Reason for continuing: Decision to DC catheter Insertion date: 01/30/18 Removal date: 01/31/18 Removal time: 10:30 Results - Labs CBC & Chem 7: 01/31/18 06:03 01/31/18 06:03 Laboratory Results - last 24 hr 01/30/18 01/30/18 01/30/18 07:42 17:43 18:50 WBC RBC Hgb Hct MCV MCH MCHC RDW Plt Count MPV Prelim Diff (Auto) Neut % (Auto) Lymph % (Auto) [place] % (Auto) Eos % (Auto) Baso % (Auto) Neut # (Auto) Lymph # (Auto) [place] # (Auto) Eos # (Auto) Baso # (Auto) WBC Differential Diff Scan Differential Comment Toxic Granulation Melissa Cells Acanthocytes (Spur) Keratocytes Sodium 125 L Potassium 3.1 L Chloride 90 L Carbon Dioxide 22.5 Anion Gap 13 BUN 44 H Creatinine 1.24 Estimated GFR 62 L POC Glucose 135 H Random Glucose 115 H Calcium 7.7 L Magnesium 2.4 Total Bilirubin 23.6 H AST 79 H ALT 95 H Alkaline Phosphatase 120 H Ammonia Total Protein 4.7 L Albumin 2.3 L Nasal Screen MRSA (PCR) Not detected 01/30/18 01/31/18 01/31/18 20:26 06:03 06:03 WBC 6.4 RBC 2.25 L Hgb 9.0 L Hct 24.5 L MCV 109.1 H D MCH 40.0 H MCHC 36.7 H RDW 17.6 H Plt Count 48 L MPV 7.4 Prelim Diff (Auto) Slide review pending Neut % (Auto) 80.4 H Lymph % (Auto) 10.3 [place] % (Auto) 8.4 H Eos % (Auto) 0.8 Baso % (Auto) 0.1 Neut # (Auto) 5.1 Lymph # (Auto) 0.7 L [place] # (Auto) 0.5 Eos # (Auto) 0.1 Baso # (Auto) 0.0 WBC Differential . Diff Scan Auto diff confirmed Differential Comment . Toxic Granulation 2+ H [place] Cells 1+ H Acanthocytes (Spur) Occ H Keratocytes 1+ H Sodium 131 L Potassium 3.3 L Chloride 98 D Carbon Dioxide 19.2 L Anion Gap 14 BUN 46 H Creatinine 1.34 H Estimated GFR 57 L POC Glucose 142 H Random Glucose 108 H Calcium 8.5 D Magnesium 2.7 H Total Bilirubin 26.0 H AST 70 H ALT 87 H Alkaline Phosphatase 119 H Ammonia Total Protein 4.4 L Albumin 2.0 L Nasal Screen MRSA (PCR) 01/31/18 11:19 WBC RBC Hgb Hct MCV MCH MCHC RDW Plt Count MPV Prelim Diff (Auto) Neut % (Auto) Lymph % (Auto) [place] % (Auto) Eos % (Auto) Baso % (Auto) Neut # (Auto) Lymph # (Auto) [place] # (Auto) Eos # (Auto) Baso # (Auto) WBC Differential Diff Scan Differential Comment Toxic Granulation Melissa Cells Acanthocytes (Spur) Keratocytes Sodium Potassium Chloride Carbon Dioxide Anion Gap BUN Creatinine Estimated GFR POC Glucose Random Glucose Calcium Magnesium Total Bilirubin AST ALT Alkaline Phosphatase Ammonia 21 Total Protein Albumin Nasal Screen MRSA (PCR) Microbiology 01/29/18 20:45 Blood - Peripheral Aerobic Blood Culture - Preliminary No growth in 2 days 01/29/18 20:45 Blood - Peripheral Anaerobic Blood Culture - Preliminary No growth in 2 days 01/29/18 20:15 Blood - Peripheral Aerobic Blood Culture - Preliminary No growth in 2 days 01/29/18 20:15 Blood - Peripheral Anaerobic Blood Culture - Preliminary No growth in 2 days - Imaging Impressions Carotid Doppler Study 01/30/18 00:00 CONCLUSION: No evidence of flow-limiting carotid stenosis. - Procedures none Assessment and Plan - Assessment (1) Hepatic encephalopathy Code(s): K72.90 - Hepatic failure, unspecified without coma Status: Acute (2) Cirrhosis Code(s): K74.60 - Unspecified cirrhosis of liver Status: Acute (3) Hyponatremia Code(s): E87.1 - Hypo-osmolality and hyponatremia Status: Acute (4) Hypokalemia Code(s): E87.6 - Hypokalemia Status: Acute (5) Thrombocytopenia Code(s): D69.6 - Thrombocytopenia, unspecified Status: Acute - Plan Mr. Kilpatrick is a 47 year old male with a history of Alcoholism, cirrhosis who was admitted to the hospital due to declining mental status, lethargy, confusion. He was previously admitted and treated at [facility] and was discharged on prednisone. His last alcohol use was about 6-8 weeks ago. On arrival, BP 133/62, HR 76, O2 sat 100% on 2L NC, Afebrile. Hemoglobin 9.3, platelets 49, no previous labs for comparison. INR 1.8. Na 121. K+ 2.8. Lactic Acid 2.2. Ammonia 178. Total Bili 23.5. CT Head w/ small area low density medial right basal ganglia related to recent lacunar infarct, left cerebral infarct vs demyelination. He is DNR. Acute alcoholic hepatitis Alcoholic cirrhosis - Maddrey's Discrimination Function score 61 (Poor prognosis) - GI is following. Currently on Solu-medrol 40mg IV Q8hrs, Pentoxifylline 400mg TID. - Continue Lactulose 30mL Q8hrs to achieve 2-3 loose bowel movements. - Continue Rifaximin 550mg Q12hrs. - Not a candidate for Liver transplantation due to alcohol use within 6-8 weeks. - Palliative care following. Mild Acute kidney injury Hyponatremia Hypokalemia - Creatinine 1.07 --> 1.24, 1.34. - Avoid nephrotoxins. Could be pre-renal but type 2 hepatorenal is also a possibility. - Hyponatremia is likely due to alcohol abuse, currently improved to 131 - Replace potassium. Likely recent CVA - CT head shows recent right basal ganglia lacunar infarction. - Neurology consulted. Due to low platelets and hepatitis, maybe difficult to initiate any anti-platelets. Thrombocytopenia - Plt count 48K. Likely due to alcoholism and liver disease. Full code. SCDs. Discussed at length with [employer] Artist as well as patient's . Prognosis is poor.
[2018-01-31] MEDS: Pentoxifylline 400 MG Controlled Release Tablet PO SCH ×2 (16:03→17:50)
--- NOTE | 2018-01-31 16:15 | ECHRPT ---
Indication: CVA/TIA CONCLUSIONS The left ventricular systolic function is low normal with an estimated ejection fraction in the rang e of 50- 55%. Wall thickness is measured at the upper limits of normal. Normal left ventricular size. Wfks-jc-najwzysl mitral valve regurgitation. There is moderate tricuspid regurgitation. The estimated pulmonary arterial pressure is 40 mmHg. Trace aortic valve regurgitation. negative bubble study for intracardiac shunt BP: / HR: Rhythm: Sinus MEASUREMENTS (Male / Female) Normal Values Technical Quality:Good 2D ECHO LV Diastolic Diameter PLAX 4.3 cm 4.2 - 5.9 / 3.9 - 5.3 cm LV Systolic Diameter PLAX 3.3 cm IVS Diastolic Thickness 1.0 cm 0.6 - 1.0 / 0.6 - 0.9 cm LVPW Diastolic Thickness 1.0 cm 0.6 - 1.0 / 0.6 - 0.9 cm LV Relative Wall Thickness 0.4 LVOT Diameter 2.1 cm M-MODE Aortic Root Diameter MM 3.2 cm LA Systolic Diameter MM 2.3 cm LA Ao Ratio MM 0.7 AV Cusp Separation MM 2.2 cm DOPPLER AV Peak Velocity 168.0 cm/s AV Peak Gradient 11.3 mmHg AI Peak Velocity 284.5 cm/s AI Peak Gradient 32.4 mmHg AI Pressure Half Time 1082.5 ms LVOT Peak Velocity 117.0 cm/s LVOT Peak Gradient 5.5 mmHg AV Area Cont Eq pk 2.4 cm MR Peak Velocity 318.0 cm/s MR Peak Gradient 40.4 mmHg Mitral E Point Velocity 101.0 cm/s Mitral A Point Velocity 81.4 cm/s Mitral E to A Ratio 1.2 LV E' Lateral Velocity 13.9 cm/s Mitral E to LV E' Lateral Ratio 7.3 LV E' Septal Velocity 6.9 cm/s Mitral E to LV E' Septal Ratio 14.6 TR Peak Velocity 274.0 cm/s TR Peak Gradient 30.0 mmHg Right Atrial Pressure 10.0 mmHg Pulmonary Artery Systolic Pressu 40.0 mmHg Right Ventricular Systolic Press 40.0 mmHg PV Peak Velocity 99.1 cm/s PV Peak Gradient 3.9 mmHg FINDINGS LEFT VENTRICLE The left ventricular systolic function is low normal with an estimated ejection fraction in the rang e of 50- 55%. Wall thickness is measured at the upper limits of normal. Normal left ventricular size. RIGHT VENTRICLE Normal right ventricular size and systolic function. LEFT ATRIUM The left atrial size is normal. RIGHT ATRIUM The right atrial size is normal. ATRIAL SEPTUM Normal atrial septal thickness without atrial level shunting by limited color doppler interrogation. AORTA The aortic root and proximal ascending aorta are normal in size on limited imaging. MITRAL VALVE Gkxn-tg-sqwxlveg mitral valve regurgitation. AORTIC VALVE Trace aortic valve regurgitation. TRICUSPID VALVE There is moderate tricuspid regurgitation. The estimated pulmonary arterial pressure is 40 mmHg. PULMONARY VALVE No pulmonary valve regurgitation or stenosis. VESSELS The inferior vena cava is normal in size. PERICARDIUM No pericardial effusion. Coy Suazo MD, FACC, [facility] [place] (Electronically Signed) Final Date:31 January 2018 16:14
--- NOTE | 2018-01-31 20:23 | MB ---
cc: Rajinder Melendez MD, PhD DATE: 01/31/2018 REASON FOR CONSULTATION: Rule out stroke. HISTORY OF PRESENT ILLNESS: Mr. Kilpatrick is a 47-year-old man who has a history of cirrhosis. On Tuesday, was very lethargic. could barely arouse him. He normally takes lactulose because of his hepatic failure. She brought him to the ER. The ammonia level was 178, is currently 21. He is much more alert now. He had no focal deficits. No double vision or headache. His CT of the brain showed some low areas of attenuation, one in the right basal ganglia and one in the left cerebral white matter. No hemorrhage or mass effect is identified. PHYSICAL EXAMINATION: VITAL SIGNS: Blood pressure is 128/63, pulse is 68, respiratory rate 16, temperature 97.8 degrees. NEUROLOGIC: Higher cortical function: He is alert and oriented x 3. Follows commands. Speech is normal. Cranial nerves are intact. Motor exam: There are no focal deficit. Reflexes are symmetric. IMPRESSION: Probable hepatic encephalopathy, improved. RECOMMENDATIONS: I would like to get an MRI of the brain to further evaluate the CT findings to rule out acute stroke, also obtain an EEG. Rajinder Melendez MD, PhD ANALILIA/ISRRAEL , 07:50 PM , 08:22 PM
[2018-01-31] MEDS ORDERED: Gadobutrol PF 10 MMOL/10 ML Vial (for RAD) IV.SIG ONE (21:12)
--- NOTE | 2018-01-31 21:58 | MR ---
EXAM DATE: 01/31/2018 9:24 PM EDT AGE/SEX: 47 years / Male INDICATIONS: CVA. Lethargy. CLINICAL DATA: This is the patient's initial encounter. Patient reports that signs and symptoms have been present for 2 days and indicates a pain score of Nonresponsive. MEDICAL/SURGICAL HISTORY: . Cirrhosis. None. COMPARISON: [facility] [place], CT HEAD W/O CONTRAST, 01/29/2018. . TECHNIQUE: Multiplanar, multisequence examination of the brain was performed without and with 8 ml Ga davist (gadobutrol) contrast as a single exam dose. FINDINGS: Cerebrum: Recent CT had demonstrated low density areas in the left moore radiata and in the right m edial striatum. There is evidence of T1 and T2 prolongation in both of these areas without evidence o f restricted diffusion and without evidence of abnormal enhancement. In the right striatum, there is also some T1 shortening suggesting paramagnetic components. No susceptibility changes to suggest acut e or old blood products. The ventricles are symmetric in size. There is good irizarry-white matter differ entiation. No evidence of intra or extra-axial blood or fluid. Posterior Fossa: The cerebellum and brainstem are intact. The 4th ventricle is midline. The cerebel lopontine angle is unremarkable. The cerebellar tonsils are normal in position. Diffusion Imaging: No focal areas of restricted diffusion are seen. No evidence of acute infarction . Extracranial: The visualized portions of the orbits and paranasal sinuses are unremarkable. Post Contrast: No abnormal areas of parenchymal or dural enhancement. No evidence of blood-brain ba rrier breakdown. CONCLUSION: 1. No evidence of acute infarction. 2. Signal abnormalities in the left moore radiata and right striatum suggest areas of gliosis or ol d lacunar infarcts. 3. No focal areas of abnormal enhancement. Electronically signed by: Michael Cook MD 01/31/2018 9:57 PM EDT
[2018-02-01] MEDS: MethylPREDNISolone Sod Succinate Inj 40 MG/ML Vial IV.PUSH SCH ×3 (06:27→21:12)
[2018-02-01] MEDS: Chlorhexidine Gluconate 2% 1 Pack (2 Cloths) TOPICAL SCH (06:28)
--- NOTE | 2018-02-01 09:22 | P.PN ---
Subjective Interval history: Follow up for Alcoholic hepatitis. Patient is much more alert today. He denies any chest pain, shortness of breath, fever or chills. He does complain of acid reflux. Physical Exam Vital signs: Vital Signs 01/31/18 10:00 01/31/18 11:00 01/31/18 12:00 Temperature Pulse Rate 59 L 57 L 62 Respiratory Rate 8 L 7 L 12 Blood Pressure 101/56 L 113/60 Pulse Oximetry 100 100 100 01/31/18 12:01 01/31/18 13:00 01/31/18 14:00 Temperature Pulse Rate 62 64 54 L Respiratory Rate 13 11 L 6 L Blood Pressure 111/56 L 116/65 101/53 L Pulse Oximetry 100 100 100 01/31/18 15:00 01/31/18 16:00 01/31/18 17:00 Temperature 97.8 F Pulse Rate 55 L 51 L 57 L Respiratory Rate 13 12 12 Blood Pressure 104/54 L 104/57 L 121/58 L Pulse Oximetry 98 99 100 01/31/18 18:00 01/31/18 19:00 01/31/18 19:56 Temperature Pulse Rate 68 62 Respiratory Rate 16 17 Blood Pressure 128/63 127/70 Pulse Oximetry 99 100 100 01/31/18 20:00 01/31/18 20:25 01/31/18 21:25 Temperature 97.7 F Pulse Rate 64 66 72 Respiratory Rate 16 18 Blood Pressure 120/69 125/65 Pulse Oximetry 100 100 01/31/18 21:30 01/31/18 22:00 01/31/18 23:00 Temperature Pulse Rate 73 77 65 Respiratory Rate 16 17 11 L Blood Pressure 123/69 113/76 114/66 Pulse Oximetry 91 L 98 95 02/01/18 00:00 02/01/18 04:00 02/01/18 08:07 Temperature 98.2 F 98.6 F Pulse Rate 75 69 Respiratory Rate 13 16 Blood Pressure 116/68 146/68 H Pulse Oximetry 100 100 Intake & Output 01/31/18 02/01/18 02/01/18 18:59 06:59 18:59 Intake Total 2200 / 2200 2960 / 2960 Output Total 300 / 300 400 / 400 Balance 1900 / 1900 2560 / 2560 Weight 81.5 kg Intake: IV 1000 / 1000 1999 1999 NS + KCl 20 mEq Inj 1,000 ML @ 1000 / 1000 1999 / 1999 100 mls/hr IV.CONT .Q10H [facility] Rx #:[id number] Oral 1200 / 1200 960 / 960 Output: Urine Amount (Catheter) 300 / 300 400 / 400 Indwelling Urethral Catheter 300 / 300 Straight 400 / 400 Other: Date of Last Bowel Movement 01/31/18 02/01/18 # Bowel Movements 2 3 Narrative: GENERAL: Alert, oriented 3, NAD. SKIN: Warm and dry - overall jaundiced. HEAD: Normocephalic. EYES: significant scleral icterus. No injection or drainage. NECK: Supple, trachea midline. No JVD or lymphadenopathy. CARDIOVASCULAR: Regular rate and rhythm without murmurs, gallops, or rubs. RESPIRATORY: Breath sounds equal bilaterally. No accessory muscle use. GASTROINTESTINAL: Abdomen soft, non-tender, nondistended. MUSCULOSKELETAL: No cyanosis, or edema. BACK: Nontender without obvious deformity. No CVA tenderness. - Urinary Catheter Management Indwelling Urethral Catheter Cath placed during this visit: yes, but has since been removed by the nurse Reason for continuing: Decision to DC catheter Insertion date: 01/30/18 Removal date: 01/31/18 Removal time: 10:30 Straight Cath placed during this visit: no Results - Labs CBC & Chem 7: 01/31/18 06:03 01/31/18 06:03 Laboratory Results - last 24 hr 01/31/18 01/31/18 11:19 21:37 POC Glucose 187 H Ammonia 21 Microbiology 01/29/18 20:45 Blood - Peripheral Aerobic Blood Culture - Preliminary No growth in 2 days 01/29/18 20:45 Blood - Peripheral Anaerobic Blood Culture - Preliminary No growth in 2 days 01/29/18 20:15 Blood - Peripheral Aerobic Blood Culture - Preliminary No growth in 2 days 01/29/18 20:15 Blood - Peripheral Anaerobic Blood Culture - Preliminary No growth in 2 days - Imaging Impressions Head MRI 01/31/18 00:00 CONCLUSION: 1. No evidence of acute infarction. 2. Signal abnormalities in the left moore radiata and right striatum suggest areas of gliosis or old lacunar infarcts. 3. No focal areas of abnormal enhancement. - Procedures none Assessment and Plan - Assessment (1) Hepatic encephalopathy Code(s): K72.90 - Hepatic failure, unspecified without coma Status: Acute (2) Cirrhosis Code(s): K74.60 - Unspecified cirrhosis of liver Status: Acute (3) Hyponatremia Code(s): E87.1 - Hypo-osmolality and hyponatremia Status: Acute (4) Hypokalemia Code(s): E87.6 - Hypokalemia Status: Acute (5) Thrombocytopenia Code(s): D69.6 - Thrombocytopenia, unspecified Status: Acute - Plan Mr. Kilpatrick is a 47 year old male with a history of Alcoholism, cirrhosis who was admitted to the hospital due to declining mental status, lethargy, confusion. He was previously admitted and treated at [facility] and was discharged on prednisone. His last alcohol use was about 6-8 weeks ago. On arrival, BP 133/62, HR 76, O2 sat 100% on 2L NC, Afebrile. Hemoglobin 9.3, platelets 49, no previous labs for comparison. INR 1.8. Na 121. K+ 2.8. Lactic Acid 2.2. Ammonia 178. Total Bili 23.5. CT Head w/ small area low density medial right basal ganglia related to recent lacunar infarct, left cerebral infarct vs demyelination. He is DNR. Acute alcoholic hepatitis Alcoholic cirrhosis - Maddrey's Discrimination Function score 61 on 02/01/2018. - GI is following. Currently on Solu-medrol 40mg IV Q8hrs, Pentoxifylline 400mg TID. - Continue Lactulose 30mL Q8hrs to achieve 2-3 loose bowel movements. - Continue Rifaximin 550mg Q12hrs. - Not a candidate for Liver transplantation due to alcohol use within 6-8 weeks. - Palliative care following. - Overall much improved clinically today 02/01/2018. Mild Acute kidney injury Hyponatremia Hypokalemia - Creatinine 1.07 --> 1.24, 1.34. - Avoid nephrotoxins. Could be pre-renal but type 2 hepatorenal is also a possibility. - Hyponatremia is likely due to alcohol abuse, currently improved to 131 - Replace potassium. - CMP pending this AM. Likely recent CVA - CT head shows recent right basal ganglia lacunar infarction. - Neurology consulted. Due to low platelets and hepatitis, maybe difficult to initiate any anti-platelets. Thrombocytopenia - Plt count 48K. Likely due to alcoholism and liver disease. - Will check CBC, CMP tomorrow AM. GERD - Will start Protonix 40mg Qday. Full code. SCDs.
[2018-02-01] MEDS: Propranolol 10 MG Tablet PO SCH ×2 (09:31→21:11)
[2018-02-01] MEDS: Folic Acid 1 MG Tablet PO SCH (09:31)
[2018-02-01] MEDS: rifAXIMin 550 MG Tablet PO SCH ×2 (09:31→21:11)
[2018-02-01] MEDS: Pentoxifylline 400 MG Controlled Release Tablet PO SCH ×3 (09:31→19:28)
[2018-02-01] MEDS: Insulin NovoLOG Aspart Correctional Sugar Inj SQ SCH ×4 (09:31→21:12)
[2018-02-01] MEDS: Spironolactone 50 MG Tablet PO SCH (09:31)
[2018-02-01 12:26] LABS: INR 2.2 Ratio
[2018-02-01 12:31] LABS: Alanine Aminotransferase 78 U/L (12-78); Anion Gap 14 meq/L (5-15); Aspartate Aminotransferase 61 U/L (15-37); Blood Urea Nitrogen 57 mg/dL (7-18); Calcium 8.7 mg/dL (8.5-10.1); Carbon Dioxide 18.4 meq/L (21.0-32.0); Chloride 94 meq/L (98-107); Glomerular Filtration Rate 48 mL/min (>89); Glucose,Random 125 mg/dL (74-106); Potassium 4.1 meq/L (3.5-5.1); Sodium 126 meq/L (136-145)
[2018-02-01 12:40] LABS: Alkaline Phosphatase 110 U/L (45-117); Total Protein 4.4 g/dL (6.4-8.2)
--- NOTE | 2018-02-01 15:49 | P.PNGI ---
Subjective Interval history: Pt sleeping during my exam, per pt was awake all night and finally just fell asleep prior to my arrival. She has requested I do not wake him up. Reports he has been much more alert today though. <Malika Weeks - Last Filed: 02/01/18 15:46> Physical Exam Vital signs: Vital Signs 01/31/18 16:00 01/31/18 17:00 01/31/18 18:00 Temperature 97.8 F Pulse Rate 51 L 57 L 68 Respiratory Rate 12 12 16 Blood Pressure 104/57 L 121/58 L 128/63 Pulse Oximetry 99 100 99 01/31/18 19:00 01/31/18 19:56 01/31/18 20:00 Temperature 97.7 F Pulse Rate 62 64 Respiratory Rate 17 16 Blood Pressure 127/70 120/69 Pulse Oximetry 100 100 100 01/31/18 20:25 01/31/18 21:25 01/31/18 21:30 Temperature Pulse Rate 66 72 73 Respiratory Rate 18 16 Blood Pressure 125/65 123/69 Pulse Oximetry 100 91 L 01/31/18 22:00 01/31/18 23:00 02/01/18 00:00 Temperature 98.2 F Pulse Rate 77 65 75 Respiratory Rate 17 11 L 13 Blood Pressure 113/76 114/66 116/68 Pulse Oximetry 98 95 100 02/01/18 04:00 02/01/18 08:00 02/01/18 08:07 Temperature 98.6 F 97.9 F Pulse Rate 69 68 Respiratory Rate 16 18 Blood Pressure 146/68 H 117/57 L Pulse Oximetry 100 100 02/01/18 09:00 02/01/18 12:00 Temperature 98 F Pulse Rate 66 64 Respiratory Rate 22 Blood Pressure 110/56 L Pulse Oximetry 100 Intake & Output 01/31/18 02/01/18 02/01/18 18:59 06:59 18:59 Intake Total 2200 / 2200 2960 / 2960 Output Total 300 / 300 400 / 400 0 / 0 Balance 1900 / 1900 2560 / 2560 0 / 0 Weight 81.5 kg Intake: IV 1000 / 1000 1999 / 1999 NS + KCl 20 mEq Inj 1,000 ML @ 1000 / 1000 1999 / 1999 100 mls/hr IV.CONT .Q10H [facility] Rx #:[id number] Oral 1200 / 1200 960 / 960 Output: Urine 0 / 0 Urine Amount (Catheter) 300 / 300 400 / 400 Indwelling Urethral Catheter 300 / 300 Straight 400 / 400 Other: Date of Last Bowel Movement 01/31/18 02/01/18 02/01/18 # Bowel Movements 2 3 - Constitutional no acute distress - Routine HEENT Exam Head: Present: normocephalic, atraumatic Eye: Present: conjunctival icterus - Routine Respiratory Exam Absent: accessory muscle use - Routine Cardiovascular Exam Present: RRR - Routine Abdominal Exam Present: soft, normoactive bowel sounds - Routine Skin Exam Present: jaundice - Urinary Catheter Management Indwelling Urethral Catheter Cath placed during this visit: yes, but has since been removed by the nurse Reason for continuing: Decision to DC catheter Insertion date: 01/30/18 Removal date: 01/31/18 Removal time: 10:30 Straight Cath placed during this visit: no <Malika Weeks - Last Filed: 02/01/18 15:46> Vital signs: Vital Signs 01/31/18 19:00 01/31/18 19:56 01/31/18 20:00 Temperature 97.7 F Pulse Rate 62 64 Respiratory Rate 17 16 Blood Pressure 127/70 120/69 Pulse Oximetry 100 100 100 01/31/18 20:25 01/31/18 21:25 01/31/18 21:30 Temperature Pulse Rate 66 72 73 Respiratory Rate 18 16 Blood Pressure 125/65 123/69 Pulse Oximetry 100 91 L 01/31/18 22:00 01/31/18 23:00 02/01/18 00:00 Temperature 98.2 F Pulse Rate 77 65 75 Respiratory Rate 17 11 L 13 Blood Pressure 113/76 114/66 116/68 Pulse Oximetry 98 95 100 02/01/18 04:00 02/01/18 08:00 02/01/18 08:07 Temperature 98.6 F 97.9 F Pulse Rate 69 68 Respiratory Rate 16 18 Blood Pressure 146/68 H 117/57 L Pulse Oximetry 100 100 02/01/18 09:00 02/01/18 12:00 02/01/18 16:00 Temperature 98 F 98 F Pulse Rate 66 64 67 Respiratory Rate 22 13 Blood Pressure 110/56 L 107/60 Pulse Oximetry 100 100 Intake & Output 01/31/18 02/01/18 02/01/18 18:59 06:59 18:59 Intake Total 2200 / 2200 2960 / 2960 1600 / 1600 Output Total 300 / 300 400 / 400 450 / 450 Balance 1900 / 1900 2560 / 2560 1150 / 1150 Weight 81.5 kg Intake: IV 1000 / 1000 1999 / 1999 1000 / 1000 NS + KCl 20 mEq Inj 1,000 ML @ 1000 / 1000 2000 / 2000 1000 / 1000 100 mls/hr IV.CONT .Q10H [facility] Rx #:[id number] Oral 1200 / 1200 960 / 960 600 / 600 Output: Urine 450 / 450 Urine Amount (Catheter) 300 / 300 400 / 400 Indwelling Urethral Catheter 300 / 300 Straight 400 / 400 Other: Date of Last Bowel Movement 01/31/18 02/01/18 02/01/18 # Bowel Movements 2 3 - Urinary Catheter Management Indwelling Urethral Catheter Cath placed during this visit: no Straight Cath placed during this visit: no <Killian Dyer - Last Filed: 02/01/18 18:44> Results - Labs CBC & Chem 7: 01/31/18 06:03 02/01/18 11:00 Laboratory Results - last 24 hr 01/31/18 02/01/18 02/01/18 21:37 11:00 11:00 PT 22.0 H INR 2.2 Sodium 126 L Potassium 4.1 D Chloride 94 L Carbon Dioxide 18.4 L Anion Gap 14 BUN 57 H Creatinine 1.57 H Estimated GFR 48 L POC Glucose 187 H Random Glucose 125 H Calcium 8.7 Total Bilirubin 25.8 H AST 61 H ALT 78 Alkaline Phosphatase 110 Total Protein 4.4 L Albumin 2.0 L Microbiology 01/29/18 20:45 Blood - Peripheral Aerobic Blood Culture - Preliminary No growth in 3 days 01/29/18 20:45 Blood - Peripheral Anaerobic Blood Culture - Preliminary No growth in 3 days 01/29/18 20:15 Blood - Peripheral Aerobic Blood Culture - Preliminary No growth in 3 days 01/29/18 20:15 Blood - Peripheral Anaerobic Blood Culture - Preliminary No growth in 3 days - Imaging Impressions Head MRI 01/31/18 00:00 CONCLUSION: 1. No evidence of acute infarction. 2. Signal abnormalities in the left moore radiata and right striatum suggest areas of gliosis or old lacunar infarcts. 3. No focal areas of abnormal enhancement. - Procedures none <Malika Weeks - Last Filed: 02/01/18 15:46> - Labs CBC & Chem 7: 01/31/18 06:03 02/01/18 11:00 Laboratory Results - last 24 hr 01/31/18 02/01/18 02/01/18 21:37 11:00 11:00 PT 22.0 H INR 2.2 Sodium 126 L Potassium 4.1 D Chloride 94 L Carbon Dioxide 18.4 L Anion Gap 14 BUN 57 H Creatinine 1.57 H Estimated GFR 48 L POC Glucose 187 H Random Glucose 125 H Calcium 8.7 Total Bilirubin 25.8 H AST 61 H ALT 78 Alkaline Phosphatase 110 Total Protein 4.4 L Albumin 2.0 L Microbiology 01/29/18 20:45 Blood - Peripheral Aerobic Blood Culture - Preliminary No growth in 3 days 01/29/18 20:45 Blood - Peripheral Anaerobic Blood Culture - Preliminary No growth in 3 days 01/29/18 20:15 Blood - Peripheral Aerobic Blood Culture - Preliminary No growth in 3 days 01/29/18 20:15 Blood - Peripheral Anaerobic Blood Culture - Preliminary No growth in 3 days - Imaging Impressions Head MRI 01/31/18 00:00 CONCLUSION: 1. No evidence of acute infarction. 2. Signal abnormalities in the left moore radiata and right striatum suggest areas of gliosis or old lacunar infarcts. 3. No focal areas of abnormal enhancement. <Killian Dyer - Last Filed: 02/01/18 18:44> Assessment and Plan (1) History of ETOH abuse Status: Acute Code(s): Z87.898 - Personal history of other specified conditions (2) Acute hepatic encephalopathy Status: Acute Code(s): K72.00 - Acute and subacute hepatic failure without coma (3) Cirrhosis Status: Acute Code(s): K74.60 - Unspecified cirrhosis of liver - Plan Assessment: - Cirrhosis- newly diagnosed during 13 day admission at [facility] a month ago (pt from [place], here on vacation) Per , pt was evaluated at hospital for extremity and abdominal swelling. Also has been jaundiced for multiple months. During admission pt placed on steroids for ETOH hepatitis which has since been tapered, had EGD which she states was normal. Denies paracentesis. States swelling improved significantly since being started on diuretics. Prior to admission pt had not seen a doctor in 30 years. Coagulopathy (INR 1.9) Hypoalbuminemia (albumin 2.3) Thrombocytopenia ( platelets 53) On admission (01/29) T bili-23.5 AST-80 ALT-92 Alk phos-118 - Encephalopathy- multifactorial- ammonia 178 as well as imaging consistent with recent lacunar infarct, left cerebral infarct vs demyelination Per pt has been increasingly lethargic since Tuesday, states has not been taking Lactulose as prescribed - History of ETOH abuse- no ETOH since 13 day admission at [facility] a month ago - Electrolyte imbalance- per CCM (01/31) Pt in ICU. Eyes open to stimulation. Remains extremely lethargic. T bili increased today. Will add Solumedrol and Pentoxifylline. Ammonia now WNL (02/01) Pt sleeping, per he did not sleep at all last night and just finally fell asleep prior to my exam, per her request I did not wake pt up. She reports he has been much more alert today and talkative. Some improvement in LFTs today. Plan: Solumedrol Pentoxifylline Lactulose Xifaxan Inderal Spironolactone Monitor labs Recommend continued supportive care Our service will sign off, please reconsult as needed Have pt follow up with GI after DC Will need to abstain from ETOH for 6 months to be considered for liver transplant Pt has been seen and examined by myself and Dr. Dyer and this note is written on his behalf <Malika Weeks - Last Filed: 02/01/18 15:46> (1) History of ETOH abuse Status: Acute Code(s): Z87.898 - Personal history of other specified conditions (2) Acute hepatic encephalopathy Status: Acute Code(s): K72.00 - Acute and subacute hepatic failure without coma (3) Cirrhosis Status: Acute Code(s): K74.60 - Unspecified cirrhosis of liver - Attending Attestation Patient seen and examined Continue with current supportive care Monitor labs At this point with worsening PT/INR one can say that patient has liver failure and at this point his prognosis is extremely poor Patient had been actively drinking up until this illness and as such is not a liver transplant candidate Other than being supportive there is little we can do <Killian Dyer - Last Filed: 02/01/18 18:44>
[2018-02-01] MEDS: Sod Chloride 0.9% Inj 1,000 ML IV.CONT SCH (15:59)
--- NOTE | 2018-02-01 21:38 | MG ---
cc: Macario Stone MD DATE OF STUDY: 02/01/2018. ELECTROENCEPHALOGRAM RECORD NUMBER: [id number]. DESCRIPTION: 4-6 Hz theta activity, with occasional 2-3 Hz delta activity occurring 20-50 microvolts. Frontal myogenic artifact. Reasonably good EEG variability and reactivity. Reduced driving with photic stimulation. Single lead EKG showing sinus rhythm. INTERPRETATION: Mild to moderate encephalopathy. Clinical correlation. MD KWAME Briseno/ISRRAEL , 09:16 PM , 09:36 PM
[2018-02-02] MEDS: Sod Chloride 0.9% Inj 1,000 ML IV.CONT SCH ×3 (02:30→17:06)
[2018-02-02 04:40] LABS: Baso % (Auto) 0.1 % (0.0-2.0); Hematocrit 21.6 % (39.0-51.0); Hemoglobin 7.7 gm/dL (13.0-17.0); Lymph # (Auto) 0.8 th/mm3 (1.0-4.8); Lymph % (Auto) 9.3 % (9.0-44.0); Mean Corpuscular HGB Conc 35.4 % (32.0-36.0); Mean Corpuscular Hemoglobin 40.2 pg (27.0-34.0); Mean Corpuscular Volume 113.4 fL (80.0-100.0); Mean Platelet Volume 8.3 fL (7.0-11.0); Mono # (Auto) 0.6 th/mm3 (0.0-0.9); Mono % (Auto) 6.2 % (0.0-8.0); Neut # (Auto) 7.5 th/mm3 (1.8-7.7); Neut % (Auto) 84.4 % (16.0-70.0); Platelet Count 56 th/mm3 (150-450); Red Cell Distribution Width 19.6 % (11.6-17.2); White Blood Count 8.9 th/mm3 (4.0-11.0)
[2018-02-02 04:46] LABS: INR 2.7 Ratio; Prothrombin Time 27.4 sec (9.8-11.6)
[2018-02-02 05:05] LABS: Alanine Aminotransferase 67 U/L (12-78); Albumin 1.6 g/dL (3.4-5.0); Alkaline Phosphatase 90 U/L (45-117); Anion Gap 10 meq/L (5-15); Aspartate Aminotransferase 58 U/L (15-37); Blood Urea Nitrogen 82 mg/dL (7-18); Calcium 7.7 mg/dL (8.5-10.1); Carbon Dioxide 19.7 meq/L (21.0-32.0); Chloride 95 meq/L (98-107); Glomerular Filtration Rate 39 mL/min (>89); Glucose,Random 131 mg/dL (74-106); Potassium 4.4 meq/L (3.5-5.1); Sodium 125 meq/L (136-145); Total Protein 3.6 g/dL (6.4-8.2)
[2018-02-02 06:12] LABS: Platelet Morphology Normal (Normal)
[2018-02-02] MEDS: MethylPREDNISolone Sod Succinate Inj 40 MG/ML Vial IV.PUSH SCH ×2 (06:33→17:06)
[2018-02-02] MEDS: Chlorhexidine Gluconate 2% 1 Pack (2 Cloths) TOPICAL SCH (06:33)
[2018-02-02] MEDS: Folic Acid 1 MG Tablet PO SCH (08:27)
[2018-02-02] MEDS: Propranolol 10 MG Tablet PO SCH ×2 (08:27→20:22)
[2018-02-02] MEDS: rifAXIMin 550 MG Tablet PO SCH ×2 (08:27→20:22)
[2018-02-02] MEDS: Pentoxifylline 400 MG Controlled Release Tablet PO SCH ×3 (08:27→17:56)
[2018-02-02] MEDS: Spironolactone 50 MG Tablet PO SCH (08:27)
[2018-02-02] MEDS: Insulin NovoLOG Aspart Correctional Sugar Inj SQ SCH ×3 (08:28→17:04)
--- NOTE | 2018-02-02 15:24 | P.PN ---
Subjective Interval history: Follow up for Alcoholic hepatitis. Patient is doing well. No acute concerns. No fever, chills. Physical Exam Vital signs: Vital Signs 02/01/18 16:00 02/01/18 17:00 02/01/18 18:00 Temperature 98 F Pulse Rate 67 67 69 Respiratory Rate 13 7 L 11 L Blood Pressure 107/60 118/59 L 109/58 L Pulse Oximetry 100 100 100 02/01/18 19:00 02/01/18 20:00 02/01/18 20:05 Temperature 97.7 F Pulse Rate 70 70 Respiratory Rate 21 14 Blood Pressure 103/58 L 106/55 L Pulse Oximetry 100 98 100 02/01/18 21:00 02/01/18 22:00 02/01/18 23:00 Temperature Pulse Rate 71 71 74 Respiratory Rate 15 19 17 Blood Pressure 113/54 L 113/59 L 108/57 L Pulse Oximetry 93 L 100 99 02/02/18 00:00 02/02/18 01:00 02/02/18 02:00 Temperature 97.8 F Pulse Rate 69 69 69 Respiratory Rate 10 L 17 13 Blood Pressure 104/55 L 108/53 L 97/56 L Pulse Oximetry 100 99 100 02/02/18 03:00 02/02/18 04:00 02/02/18 05:00 Temperature 97.7 F Pulse Rate 72 68 65 Respiratory Rate 23 18 9 L Blood Pressure 84/50 L 92/54 L 97/52 L Pulse Oximetry 99 100 100 02/02/18 06:00 02/02/18 07:00 02/02/18 08:00 Temperature 97.7 F Pulse Rate 66 67 66 Respiratory Rate 12 21 18 Blood Pressure 91/55 L 92/54 L 92/55 L Pulse Oximetry 100 100 96 Intake & Output 02/01/18 02/02/18 02/02/18 18:59 06:59 18:59 Intake Total 1600 / 1600 1720 / 1720 Output Total 450 / 450 800 / 800 Balance 1150 / 1150 920 / 920 Weight 85.5 kg Intake: IV 1000 / 1000 1000 / 1000 NS + KCl 20 mEq Inj 1,000 ML @ 1000 / 1000 100 mls/hr IV.CONT .Q10H DELANO Rx #:[id number] NS Inj 1,000 ML @ 84 mls/hr IV. 1000 / 1000 CONT .[id number] DELANO Rx#:[id number] Oral 600 / 600 720 / 720 Output: Urine 450 / 450 Urine Amount (Catheter) 800 / 800 Straight 800 / 800 Other: Date of Last Bowel Movement 02/01/18 02/01/18 # Bowel Movements 0 # Incontinent Bowel Movements 0 Narrative: GENERAL: Alert, oriented 3, NAD. SKIN: Warm and dry - overall jaundiced. HEAD: Normocephalic. EYES: significant scleral icterus. No injection or drainage. NECK: Supple, trachea midline. No JVD or lymphadenopathy. CARDIOVASCULAR: Regular rate and rhythm without murmurs, gallops, or rubs. RESPIRATORY: Breath sounds equal bilaterally. No accessory muscle use. GASTROINTESTINAL: Abdomen soft, non-tender, nondistended. MUSCULOSKELETAL: No cyanosis, or edema. BACK: Nontender without obvious deformity. No CVA tenderness. - Urinary Catheter Management Indwelling Urethral Catheter Cath placed during this visit: yes, but has since been removed by the nurse Reason for continuing: Decision to DC catheter Insertion date: 01/30/18 Removal date: 01/31/18 Removal time: 10:30 Straight Cath placed during this visit: no Results - Labs CBC & Chem 7: 02/02/18 03:51 02/02/18 03:51 Laboratory Results - last 24 hr 02/01/18 02/02/18 02/02/18 20:49 03:51 03:51 WBC 8.9 RBC 1.90 L Hgb 7.7 L Hct 21.6 L MCV 113.4 H D MCH 40.2 H MCHC 35.4 RDW 19.6 H Plt Count 56 L MPV 8.3 Prelim Diff (Auto) Slide review pending Neut % (Auto) 84.4 H Lymph % (Auto) 9.3 [place] % (Auto) 6.2 Eos % (Auto) 0.0 Baso % (Auto) 0.1 Neut # (Auto) 7.5 Lymph # (Auto) 0.8 L [place] # (Auto) 0.6 Eos # (Auto) 0.0 Baso # (Auto) 0.0 WBC Differential . Diff Scan Auto diff confirmed Differential Comment . Platelet Estimate Low L Platelet Morphology Normal PT 27.4 H INR 2.7 Sodium Potassium Chloride Carbon Dioxide Anion Gap BUN Creatinine Estimated GFR POC Glucose 153 H Random Glucose Calcium Total Bilirubin AST ALT Alkaline Phosphatase Total Protein Albumin 02/02/18 03:51 WBC RBC Hgb Hct MCV MCH MCHC RDW Plt Count MPV Prelim Diff (Auto) Neut % (Auto) Lymph % (Auto) [place] % (Auto) Eos % (Auto) Baso % (Auto) Neut # (Auto) Lymph # (Auto) [place] # (Auto) Eos # (Auto) Baso # (Auto) WBC Differential Diff Scan Differential Comment Platelet Estimate Platelet Morphology PT INR Sodium 125 L Potassium 4.4 Chloride 95 L Carbon Dioxide 19.7 L Anion Gap 10 BUN 82 H Creatinine 1.88 H Estimated GFR 39 L POC Glucose Random Glucose 131 H Calcium 7.7 L D Total Bilirubin 21.6 H AST 58 H ALT 67 Alkaline Phosphatase 90 Total Protein 3.6 L D Albumin 1.6 L Microbiology 01/29/18 20:45 Blood - Peripheral Aerobic Blood Culture - Preliminary No growth in 4 days 01/29/18 20:45 Blood - Peripheral Anaerobic Blood Culture - Preliminary No growth in 4 days 01/29/18 20:15 Blood - Peripheral Aerobic Blood Culture - Preliminary No growth in 4 days 01/29/18 20:15 Blood - Peripheral Anaerobic Blood Culture - Preliminary No growth in 4 days - Procedures none Assessment and Plan - Assessment (1) Hepatic encephalopathy Code(s): K72.90 - Hepatic failure, unspecified without coma Status: Acute (2) Cirrhosis Code(s): K74.60 - Unspecified cirrhosis of liver Status: Acute (3) Hyponatremia Code(s): E87.1 - Hypo-osmolality and hyponatremia Status: Acute (4) Hypokalemia Code(s): E87.6 - Hypokalemia Status: Acute (5) Thrombocytopenia Code(s): D69.6 - Thrombocytopenia, unspecified Status: Acute - Plan Mr. Kilpatrick is a 47 year old male with a history of Alcoholism, cirrhosis who was admitted to the hospital due to declining mental status, lethargy, confusion. He was previously admitted and treated at [facility] and was discharged on prednisone. His last alcohol use was about 6-8 weeks ago. On arrival, BP 133/62, HR 76, O2 sat 100% on 2L NC, Afebrile. Hemoglobin 9.3, platelets 49, no previous labs for comparison. INR 1.8. Na 121. K+ 2.8. Lactic Acid 2.2. Ammonia 178. Total Bili 23.5. CT Head w/ small area low density medial right basal ganglia related to recent lacunar infarct, left cerebral infarct vs demyelination. He is DNR. Acute alcoholic hepatitis Alcoholic cirrhosis - Maddrey's Discrimination Function score increased from 61 to 94.7 2017. - GI is following. Continue Pentoxifylline 400mg TID. - Will switch Solu-medrol to Prednisolone 20mg BID with a goal to continue for 28 days and taper off. - Continue Lactulose 30mL Q8hrs to achieve 2-3 loose bowel movements. - Continue Rifaximin 550mg Q12hrs. - Not a candidate for Liver transplantation due to alcohol use within 6-8 weeks. - Palliative care following. - Mentaion is Clinically improving. However, MDF is worse (61 --> 94). Mild Acute kidney injury Hyponatremia Hypokalemia - Creatinine 1.07 ==> 1.88. - Avoid nephrotoxins. Could be pre-renal but type 2 hepatorenal is also a possibility. - Hyponatremia is likely due to hepatitis/alcohol abuse. - Will consult Nephrology with regards to Hyponatremia (Na 125) as well as elevation in creatinine. Likely recent CVA - CT head shows recent right basal ganglia lacunar infarction. - Neurology consulted. Due to low platelets and hepatitis, maybe difficult to initiate any anti-platelets. Thrombocytopenia - Plt count 48K. Likely due to alcoholism and liver disease. - PLT count is improved from 48K ==> 56K. GERD - Protonix 40mg Qday. Full code. SCDs. Remains in poor prognosis. Discussed with Palliative care. If patient is able to sit in a wheelchair, he maybe able to take a flight to his home state [place].
--- NOTE | 2018-02-02 16:02 | P.PNPAL ---
Reason for Visit Reason for visit: a. To assist with evaluation and management of symptoms including: Lethargy, encephalopathy b. To assist medical decision maker(s) with: better understanding of current medical conditions; weighing benefits/burdens of medical treatment options; making medical treatment decisions. Subjective Subjective/Interval History: Patient seen for follow-up on symptom management of lethargy and encephalopathy. Patient able to open his eyes now and after an extended time with repeated questions able to speak a few words. Speech is clear. He is oriented 3. He is taking oral fluids but his appetite is minimal at this time. He remains very lethargic but eyes are open and he is following the conversation around him. Albumin continues to decline and is now 1.6, from a maximum of 2.3 during this admission. EEG was completed showing mild to moderate encephalopathy. Sodium is decreasing after improving for a few days. He is 125 today. Renal function also continues to decline with creatinine rising from 1.07 on admission to 1.88 today, BUN which was 41 on admission is 82 today. Due to concern for hepatorenal syndrome, nephrology consultation has been requested and is pending. His INR continues to rise and at this evaluation is 2.7, PT 27.4. Blood cultures are negative 4 days. He has been evaluated by neurology for possible stroke. Pending follow-up from neuro for opinion on imaging studies and EEG. . Family/Friend Interactions: Spoke with and both sons at bedside. Work on discharge plans to get patient back to [place] for follow-up by senior ssis developer. Reviewed with Dr. Cid possible barriers, to include weakness, ability to sit up in wheelchair, stand and pivot, manage urinary retention/Cherry catheter/leg bag. states they drove down from [place], which is an 18 hour trip, and that both of her sons have come to [facility] to assist her in managing transport back to [place]. It is felt best for the patient to go by airplane due to the length of time required for automobile transport. PT consult has been requested to ascertain if patient can sit up in a wheelchair. CM is assisting with travel plans. Family is working to arrange physician visits closest to their arrival in [place] for follow-up management and arranging for medical records to be transferred. . Objective Vital Signs: Vital Signs 02/01/18 16:00 02/01/18 17:00 02/01/18 18:00 Temperature 98 F Pulse Rate 67 67 69 Respiratory Rate 13 7 L 11 L Blood Pressure 107/60 118/59 L 109/58 L Pulse Oximetry 100 100 100 02/01/18 19:00 02/01/18 20:00 02/01/18 20:05 Temperature 97.7 F Pulse Rate 70 70 Respiratory Rate 21 14 Blood Pressure 103/58 L 106/55 L Pulse Oximetry 100 98 100 02/01/18 21:00 02/01/18 22:00 02/01/18 23:00 Temperature Pulse Rate 71 71 74 Respiratory Rate 15 19 17 Blood Pressure 113/54 L 113/59 L 108/57 L Pulse Oximetry 93 L 100 99 02/02/18 00:00 02/02/18 01:00 02/02/18 02:00 Temperature 97.8 F Pulse Rate 69 69 69 Respiratory Rate 10 L 17 13 Blood Pressure 104/55 L 108/53 L 97/56 L Pulse Oximetry 100 99 100 02/02/18 03:00 02/02/18 04:00 02/02/18 05:00 Temperature 97.7 F Pulse Rate 72 68 65 Respiratory Rate 23 18 9 L Blood Pressure 84/50 L 92/54 L 97/52 L Pulse Oximetry 99 100 100 02/02/18 06:00 02/02/18 07:00 02/02/18 08:00 Temperature 97.7 F Pulse Rate 66 67 66 Respiratory Rate 12 21 18 Blood Pressure 91/55 L 92/54 L 92/55 L Pulse Oximetry 100 100 96 Intake & Output 02/01/18 02/02/18 02/02/18 18:59 06:59 18:59 Intake Total 1600 / 1600 1720 / 1720 Output Total 450 / 450 800 / 800 Balance 1150 / 1150 920 / 920 Weight 188 lb 7.924 oz Intake: IV 1000 / 1000 1000 / 1000 NS + KCl 20 mEq Inj 1,000 ML @ 1000 / 1000 100 mls/hr IV.CONT .Q10H DELANO Rx #:[id number] NS Inj 1,000 ML @ 84 mls/hr IV. 1000 / 1000 CONT .[id number] DELANO Rx#:[id number] Oral 600 / 600 720 / 720 Output: Urine 450 / 450 Urine Amount (Catheter) 800 / 800 Straight 800 / 800 Other: Date of Last Bowel Movement 02/01/18 02/01/18 # Bowel Movements 0 # Incontinent Bowel Movements 0 Physical Exam: CONSTITUTIONAL/GENERAL: This is an adequately nourished patient, lethargic, in no apparent distress. TUBES/LINES/DRAINS: PIV, Cherry. SKIN: Generalized jaundice, no rashes, or lesions. Dry flaking skin. No wounds seen anteriorly. Skin temperature appropriate. Not diaphoretic. HEAD: Atraumatic. Normocephalic. EYES: Pupils equal and round and reactive. Extraocular motions intact. Positive scleral icterus. Fundi not examined. ENT: Nose without bleeding or purulent drainage. NECK: Trachea midline. Supple, nontender. No palpable thyroid enlargement or nodularity. CARDIOVASCULAR: Regular rate and rhythm without murmurs, gallops, or rubs. No JVD. Peripheral pulses symmetric. RESPIRATORY/CHEST: Symmetric, unlabored respirations. Clear to auscultation. Breath sounds equal bilaterally. No wheezes, rales, or rhonchi. GASTROINTESTINAL: Abdomen soft, non-tender, nondistended. Positive hepatomegaly , no palpable masses. No guarding. Bowel sounds present. GENITOURINARY: Without palpable bladder distension. Cherry catheter in place. MUSCULOSKELETAL: Extremities without clubbing or cyanosis, 1+ dependent edema. No joint tenderness or effusion noted. No calf tenderness. No mottling or clubbing. LYMPHATICS: No palpable cervical or supraclavicular adenopathy. NEUROLOGICAL: Awake, lethargic, responds slowly, oriented 3. PSYCHIATRIC: Calm, appropriate. . Diagnostic Tests Laboratory: Laboratory Results - last 72 hr 01/30/18 01/30/18 01/30/18 07:42 17:43 18:50 WBC RBC Hgb Hct MCV MCH MCHC RDW Plt Count MPV Prelim Diff (Auto) Neut % (Auto) Lymph % (Auto) [place] % (Auto) Eos % (Auto) Baso % (Auto) Neut # (Auto) Lymph # (Auto) [place] # (Auto) Eos # (Auto) Baso # (Auto) WBC Differential Diff Scan Differential Comment Toxic Granulation Platelet Estimate Platelet Morphology Melissa Cells Acanthocytes (Spur) Keratocytes PT INR Sodium 125 L Potassium 3.1 L Chloride 90 L Carbon Dioxide 22.5 Anion Gap 13 BUN 44 H Creatinine 1.24 Estimated GFR 62 L POC Glucose 135 H Random Glucose 115 H Calcium 7.7 L Magnesium 2.4 Total Bilirubin 23.6 H AST 79 H ALT 95 H Alkaline Phosphatase 120 H Ammonia Total Protein 4.7 L Albumin 2.3 L Nasal Screen MRSA (PCR) Not detected 01/30/18 01/31/18 01/31/18 20:26 06:03 06:03 WBC 6.4 RBC 2.25 L Hgb 9.0 L Hct 24.5 L MCV 109.1 H D MCH 40.0 H MCHC 36.7 H RDW 17.6 H Plt Count 48 L MPV 7.4 Prelim Diff (Auto) Slide review pending Neut % (Auto) 80.4 H Lymph % (Auto) 10.3 [place] % (Auto) 8.4 H Eos % (Auto) 0.8 Baso % (Auto) 0.1 Neut # (Auto) 5.1 Lymph # (Auto) 0.7 L [place] # (Auto) 0.5 Eos # (Auto) 0.1 Baso # (Auto) 0.0 WBC Differential . Diff Scan Auto diff confirmed Differential Comment . Toxic Granulation 2+ H Platelet Estimate Platelet Morphology [place] Cells 1+ H Acanthocytes (Spur) Occ H Keratocytes 1+ H PT INR Sodium 131 L Potassium 3.3 L Chloride 98 D Carbon Dioxide 19.2 L Anion Gap 14 BUN 46 H Creatinine 1.34 H Estimated GFR 57 L POC Glucose 142 H Random Glucose 108 H Calcium 8.5 D Magnesium 2.7 H Total Bilirubin 26.0 H AST 70 H ALT 87 H Alkaline Phosphatase 119 H Ammonia Total Protein 4.4 L Albumin 2.0 L Nasal Screen MRSA (PCR) 01/31/18 01/31/18 02/01/18 11:19 21:37 11:00 WBC RBC Hgb Hct MCV MCH MCHC RDW Plt Count MPV Prelim Diff (Auto) Neut % (Auto) Lymph % (Auto) [place] % (Auto) Eos % (Auto) Baso % (Auto) Neut # (Auto) Lymph # (Auto) [place] # (Auto) Eos # (Auto) Baso # (Auto) WBC Differential Diff Scan Differential Comment Toxic Granulation Platelet Estimate Platelet Morphology Melissa Cells Acanthocytes (Spur) Keratocytes PT INR Sodium 126 L Potassium 4.1 D Chloride 94 L Carbon Dioxide 18.4 L Anion Gap 14 BUN 57 H Creatinine 1.57 H Estimated GFR 48 L POC Glucose 187 H Random Glucose 125 H Calcium 8.7 Magnesium Total Bilirubin 25.8 H AST 61 H ALT 78 Alkaline Phosphatase 110 Ammonia 21 Total Protein 4.4 L Albumin 2.0 L Nasal Screen MRSA (PCR) 02/01/18 02/01/18 02/02/18 11:00 20:49 03:51 WBC 8.9 RBC 1.90 L Hgb 7.7 L Hct 21.6 L MCV 113.4 H D MCH 40.2 H MCHC 35.4 RDW 19.6 H Plt Count 56 L MPV 8.3 Prelim Diff (Auto) Slide review pending Neut % (Auto) 84.4 H Lymph % (Auto) 9.3 [place] % (Auto) 6.2 Eos % (Auto) 0.0 Baso % (Auto) 0.1 Neut # (Auto) 7.5 Lymph # (Auto) 0.8 L [place] # (Auto) 0.6 Eos # (Auto) 0.0 Baso # (Auto) 0.0 WBC Differential . Diff Scan Auto diff confirmed Differential Comment . Toxic Granulation Platelet Estimate Low L Platelet Morphology Normal Melissa Cells Acanthocytes (Spur) Keratocytes PT 22.0 H INR 2.2 Sodium Potassium Chloride Carbon Dioxide Anion Gap BUN Creatinine Estimated GFR POC Glucose 153 H Random Glucose Calcium Magnesium Total Bilirubin AST ALT Alkaline Phosphatase Ammonia Total Protein Albumin Nasal Screen MRSA (PCR) 02/02/18 02/02/18 03:51 03:51 WBC RBC Hgb Hct MCV MCH MCHC RDW Plt Count MPV Prelim Diff (Auto) Neut % (Auto) Lymph % (Auto) [place] % (Auto) Eos % (Auto) Baso % (Auto) Neut # (Auto) Lymph # (Auto) [place] # (Auto) Eos # (Auto) Baso # (Auto) WBC Differential Diff Scan Differential Comment Toxic Granulation Platelet Estimate Platelet Morphology Melissa Cells Acanthocytes (Spur) Keratocytes PT 27.4 H INR 2.7 Sodium 125 L Potassium 4.4 Chloride 95 L Carbon Dioxide 19.7 L Anion Gap 10 BUN 82 H Creatinine 1.88 H Estimated GFR 39 L POC Glucose Random Glucose 131 H Calcium 7.7 L D Magnesium Total Bilirubin 21.6 H AST 58 H ALT 67 Alkaline Phosphatase 90 Ammonia Total Protein 3.6 L D Albumin 1.6 L Nasal Screen MRSA (PCR) Result Diagrams: 02/02/18 03:51 02/03/18 04:37 Microbiology: Microbiology 01/29/18 20:45 Aerobic Blood Culture - Preliminary Blood - Peripheral No growth in 4 days Anaerobic Blood Culture - Preliminary No growth in 4 days 01/29/18 20:15 Aerobic Blood Culture - Preliminary Blood - Peripheral No growth in 4 days Anaerobic Blood Culture - Preliminary No growth in 4 days Imaging: Chest X-Ray 01/29/18 20:46 CONCLUSION: No acute cardiopulmonary process. Head CT 01/29/18 20:46 CONCLUSION: 1. Small area of low density in the medial right basal ganglia likely related to a recent lacunar infarct. 2. Mild area of decreased density in the left cerebral white matter representing either a prior lacunar infarct or an area of demyelination. 3. No acute areas of hemorrhage or mass effect is seen. Carotid Doppler Study 01/30/18 00:00 CONCLUSION: No evidence of flow-limiting carotid stenosis. Head MRI 01/31/18 00:00 CONCLUSION: 1. No evidence of acute infarction. 2. Signal abnormalities in the left moore radiata and right striatum suggest areas of gliosis or old lacunar infarcts. 3. No focal areas of abnormal enhancement. Procedures: None. . Assessment and Plan Pertinent Non-Medical Issues: Psychosocial: He was born in [place] and continues to live and worked there. 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 He has a and 3 children, one 13-year-old daughter, 2 sons, 24 and 27 years old. Spiritual: Not an important concept to the patient. Legal: No advanced directives have been completed. Per [place] statutes, his would be the proxy decision-maker. Ethical issues impacting care: None noted. . Important Contacts: : Michelle Kilpatrick Prognosis: His prognosis is poor. He is severely jaundiced, ammonia of 178 in spite of some ingestion of lactulose since his discharge from the hospital in [place] 4 weeks ago. He has not been consistent in taking his lactulose, however in spite of intermittent indigestion, his ammonia continues to rise. He is auto anticoagulated with an INR of 1.9. His bilirubin is over 23. He is critically ill, very lethargic and per his 's discussion with me, he would not wish to be intubated or resuscitated. The possibility must be entertained that he will not survive this hospitalization. . Code Status: No Code DNR Plan: PLAN: Legal decision maker: As patient is incapacitated to make his own decisions due to lethargy, per [place] statutes, his would be his proxy decision- maker. Goals: Aggressive short of no code. CODE STATUS: DNR SYMPTOMS: * Lethargy: Multifactorial to include elevated ammonia level, liver failure. He is receiving lactulose and Xifaxan has been added to his regimen by GI. Due to the lethargy, he may not be able to swallow medications and may require a Dobbhoff versus lactulose enemas. * Encephalopathy: He is now awake and oriented 3, although remains lethargic. EEG continues to show moderate encephalopathy. Neuro opinion on imaging studies pending. Primary management notes recent right basal ganglia lacunar infarction. Platelets are 56, compromising ability to receive antiplatelets. Family plans to return to [place] as soon as discharge plans can be made for follow -up with primary care and senior ssis developer. Palliative care will continue to follow the patient during hospital course as condition evolves, to assist patient/decision-maker with understanding of their medical conditions, weighing benefits/burdens of treatment options, for clarification of goals of treatment. Additionally will assist with any symptoms of palliative concern. . Attestation Collaborating MD Comments: Chart reviewed. Case discussed with palliative care nurse practitioner. Above NEEDLE MAKER note reviewed and I concur. . Attestation: To help prompt me to consider important information that might be impacting today's encounter and assessment, information from prior notes written by myself or my colleagues may have been "brought forward" into today's note. My signature on this note, however, is an attestation that I personally performed the exam, history, and/or decision-making noted today, and, unless otherwise indicated, the interactions with patient, family, and staff as well as the review of records all occurred today. I also attest that the listed assessment and stated plan reflect my best clinical judgment today based on the combination of historical information, prior notes, and today's exam/ interactions. When time spent is documented, it refers only to time spent today by the signer, or if indicated, combined time spent today by collaborating physician/nurse practitioner. .
[2018-02-02 16:26] LABS: Creatinine,Urine Random 114 mg/dL (27-300)
[2018-02-02 16:29] VITALS: BP 68/43; PULSE 61; RESP 19; TEMP 98; O2SAT 99
--- NOTE | 2018-02-02 16:40 | P.CONNP ---
History of Present Illness Service: Nephrology Consult date: 02/02/18 Reason for Consult: Acute Renal Failure Primary Care Provider: No Primary Care Physician Chief Complaint: Altered mental status History of Present Illness: This is a 47 y/o male with cirrhosis and hx of heavy ETOH abuse who is visiting from [place]. He was brought in for altered mental status. He is confused and unable to provide any history. He is on Lasix and HCTZ at home in addition to lactulose. Apparently he has not been compliant with lactulose recently. His creatinine was 1.07 on arrival, has increased daily and is 1.88 today. WE were consulted for management. On exam he is jaundiced, confused, shaky. He is hypotensive which is relatively new. The RN informs me he has had urinary retention and has required intermittent straight caths throughout the day. A Cherry was just placed, urine is dark dennis in color. He is a DNR this admission. Review of Systems unobtainable due to mental status PMFSH - History History Provided By: Significant Other - Medical / Surgical Hx Neg / Unobtainable Medical Problems Denied: Unable to Obtain ( states patient had not been to see a physician in over 30 years.) - Medical History Medical History: Medical History (Last Reviewed 02/01/18 @ 07:53 by Lucio Danielson) Cirrhosis - Tobacco History Second Hand Smoke Exposure: No Tobacco Use In Past 30 Days: No Smoking Status: Never smoker - Alcohol History How Often Do You Have a Drink Containing Alcohol: 4 or more times a week (Has not drank in 6 weeks, former heavy ETOH for several years (beer, vodka)) - Substance Use History Substance History: Past History - Travel History History of Recent Travel: Yes Recent Travel in the [place] Within the Last 8 Weeks: Yes Recent Travel Out of the Country Within the Last 8 Weeks: No - Immunization History Tetanus Immunization: Unsure Hx Influenza Vaccine This Season: No Medications and Allergies Active Medications: Active Medications Al Hydroxide/Mg Hydroxide (Milk Of Magnesia Liq) 30 ml PO Q12H PRN PRN Reason: Mild Constipation Bisacodyl (Dulcolax Supp) 10 mg RECTAL DAILY PRN PRN Reason: SEVERE CONSITIPATION Chlorhexidine Gluconate (Chlorhexidine 2% Cloth) 3 pack TOPICAL DAILY@0400 [facility] Stop: 02/05/18 03:59 Last Admin: 02/02/18 06:33 Dose: Not Given Chlorhexidine Gluconate (Chlorhexidine 2% Cloth) 3 pack TOPICAL DAILY@0400 PRN PRN Reason: Extra cloth needed Stop: 02/05/18 03:59 Dextrose (D50w Vial) 50 ml IV.PUSH UNSCH PRN PRN Reason: PER HYPOGLYCEMIA PROTOCOL Folic Acid (Folic Acid) 1 mg PO DAILY [facility] Last Admin: 02/02/18 08:27 Dose: 1 mg Glucagon (Glucagon Inj) 1 mg OTHER UNSCH PRN PRN Reason: for Hypoglycemia Protocol Magnesium Sulfate Inj 4 gm/ (Sodium Chloride) 100 mls @ 50 mls/hr IV.SIG UNSCH PRN PRN Reason: For Magnesium 0.9 - 1.1 mg/dL Magnesium Sulfate Inj 2 gm/ (Sodium Chloride) 100 mls @ 50 mls/hr IV.SIG UNSCH PRN PRN Reason: For Magnesium 1.2 - 1.6 mg/dL Potassium Chloride (Kcl 40 Meq Premix Inj) 40 meq in 100 mls @ 25 mls/hr IV.SIG Q2H PRN PRN Reason: For Potassium 2.8 - 3.2 mEq/L Potassium Chloride (Kcl 20 Meq Premix Inj) 20 meq in 100 mls @ 50 mls/hr IV.SIG Q2H PRN PRN Reason: For Potassium 3.3 - 3.5 mEq/L Potassium Chloride (Kcl 40 Meq Premix Inj) 40 meq in 100 mls @ 25 mls/hr IV.SIG UNSCH PRN PRN Reason: For Potassium 3.3 - 3.5 mEq/L Potassium Chloride (Kcl 20 Meq Premix Inj) 20 meq in 100 mls @ 50 mls/hr IV.SIG Q2H PRN PRN Reason: For Potassium 2.8 - 3.2 mEq/L Potassium Phosphate 30 mmol/ (Sodium Chloride) 260 mls @ 42 mls/hr IV.SIG UNSCH PRN PRN Reason: SEE LABEL COMMENTS Sodium Phosphate 30 mmol/ (Sodium Chloride) 260 mls @ 42 mls/hr IV.SIG UNSCH PRN PRN Reason: For Phosphorus < 2.5 mg/dL Sodium Chloride (Ns Inj) 1,000 mls @ 100 mls/hr IV.CONT .Q10H [facility] Last Admin: 02/02/18 15:15 Dose: 100 mls/hr Insulin Aspart (Novolog Insulin Correctional Sugar Inj) 0 unit SQ ACHS [facility]; Protocol Last Admin: 02/02/18 15:09 Dose: Not Given Lactulose (Lactulose Liq) 30 ml PO Q8H [facility] Last Admin: 02/02/18 16:18 Dose: 30 ml Magnesium Oxide (Mag-Ox) 800 mg PO UNSCH PRN PRN Reason: For Magnesium 1.2 - 1.6 mg/dL Pantoprazole Sodium (Protonix) 40 mg PO DAILY [facility] Last Admin: 02/02/18 08:27 Dose: 40 mg Pentoxifylline (Trental Sr) 400 mg PO TID [facility] Last Admin: 02/02/18 16:18 Dose: 400 mg Potassium Bicarb/Potassium Chloride (K-Lyte Cl Eff) 50 meq PO UNSCH PRN PRN Reason: For Potassium 3.3 - 3.5 mEq/L Potassium Phosphate (K-Phos Original) 2,000 mg PO Q4H PRN PRN Reason: Phosphorus Less Than 2.5 mg/dL Potassium Phosphate (K-Phos Original) 2,000 mg PO UNSCH PRN PRN Reason: SEE LABEL COMMENTS Prednisolone Sodium Phosphate (Orapred Odt) 20 mg PO BID [facility] Stop: 03/02/18 20:59 Propranolol HCl (Inderal) 10 mg PO BID [facility] Last Admin: 02/02/18 08:27 Dose: 10 mg Rifaximin (Xifaxan) 550 mg PO Q12HR [facility] Last Admin: 02/02/18 08:27 Dose: 550 mg Sennosides (Senokot) 17.2 mg PO Q12H PRN PRN Reason: Moderate Constipation Sodium Chloride (Ns Flush) 2 ml IV.FLUSH BID [facility] Last Admin: 02/02/18 08:28 Dose: 2 ml Sodium Chloride (Ns Flush) 2 ml IV.FLUSH PRN PRN PRN Reason: FLUSH AFTER USING IV ACCESS Spironolactone (Aldactone) 50 mg PO DAILY [facility] Last Admin: 02/02/18 08:27 Dose: 50 mg Allergies Allergy/AdvReac Type Severity Reaction Status Date / Time No Known Allergies Allergy Unverified 01/29/18 20:46 Home Medications Medication Instructions Recorded Confirmed Type folic acid 1 mg PO DAILY 01/29/18 01/29/18 History furosemide 40 mg PO DAILY 01/29/18 01/29/18 History hydrochlorothiazide 25 mg PO DAILY 01/29/18 01/29/18 History lactulose 20 g PO BID 01/29/18 01/29/18 History Exam Vital signs: Vital Signs 02/01/18 17:00 02/01/18 18:00 02/01/18 19:00 Temperature Pulse Rate 67 69 70 Respiratory Rate 7 L 11 L 21 Blood Pressure 118/59 L 109/58 L 103/58 L Pulse Oximetry 100 100 100 02/01/18 20:00 02/01/18 20:05 02/01/18 21:00 Temperature 97.7 F Pulse Rate 70 71 Respiratory Rate 14 15 Blood Pressure 106/55 L 113/54 L Pulse Oximetry 98 100 93 L 02/01/18 22:00 02/01/18 23:00 02/02/18 00:00 Temperature 97.8 F Pulse Rate 71 74 69 Respiratory Rate 19 17 10 L Blood Pressure 113/59 L 108/57 L 104/55 L Pulse Oximetry 100 99 100 02/02/18 01:00 02/02/18 02:00 02/02/18 03:00 Temperature Pulse Rate 69 69 72 Respiratory Rate 17 13 23 Blood Pressure 108/53 L 97/56 L 84/50 L Pulse Oximetry 99 100 99 02/02/18 04:00 02/02/18 05:00 02/02/18 06:00 Temperature 97.7 F Pulse Rate 68 65 66 Respiratory Rate 18 9 L 12 Blood Pressure 92/54 L 97/52 L 91/55 L Pulse Oximetry 100 100 100 02/02/18 07:00 02/02/18 08:00 02/02/18 12:00 Temperature 97.7 F 97.7 F Pulse Rate 67 66 62 Respiratory Rate 21 18 14 Blood Pressure 92/54 L 92/55 L 87/49 L Pulse Oximetry 100 96 96 02/02/18 16:00 02/02/18 16:01 Temperature 98 F Pulse Rate 61 Respiratory Rate 19 Blood Pressure 68/43 L Pulse Oximetry 99 Intake & Output 02/01/18 02/02/18 02/02/18 18:59 06:59 18:59 Intake Total 1600 / 1600 1720 / 1720 Output Total 450 / 450 800 / 800 Balance 1150 / 1150 920 / 920 Weight 85.5 kg Intake: IV 1000 / 1000 1000 / 1000 NS + KCl 20 mEq Inj 1,000 ML @ 1000 / 1000 100 mls/hr IV.CONT .Q10H [facility] Rx #:[id number] NS Inj 1,000 ML @ 84 mls/hr IV. 1000 / 1000 CONT .[id number] [facility] Rx#:[id number] Oral 600 / 600 720 / 720 Output: Urine 450 / 450 Urine Amount (Catheter) 800 / 800 Straight 800 / 800 Other: Date of Last Bowel Movement 02/01/18 02/01/18 # Bowel Movements 0 # Incontinent Bowel Movements 0 - Constitutional no acute distress, chronically ill appearing - Routine HEENT Exam Head: Present: normocephalic Eye: Present: conjunctival icterus ENT: Present: mucous membranes moist - Routine Neck Exam Present: supple, full ROM - Routine Respiratory Exam Present: CTA bilaterally. Absent: accessory muscle use - Routine Cardiovascular Exam Present: RRR, S1, S2 - Routine Abdominal Exam Present: soft, normoactive bowel sounds, distended - Routine Extremities Exam Present: edema, full ROM, normal capillary refill - Routine Skin Exam Present: intact, warm, jaundice - Routine Neurological Exam Present: alert, moving all extremities, tremors Results - Lab Results 02/02/18 03:51 02/02/18 03:51 Most recent lab results ABG pH 7.54 (7.380-7.420) H* 01/30/18 10:23 ABG pCO2 26 mmHg (38-42) L 01/30/18 10:23 ABG pO2 88 mmHg (61-120) 01/30/18 10:23 ABG HCO3 22 mmol/L (22-26) 01/30/18 10:23 Calcium 7.7 mg/dL (8.5-10.1) L D 02/02/18 03:51 Magnesium 2.7 mg/dL (1.5-2.5) H 01/31/18 06:03 - Image Kidney/bladder ultrasound: pending Assessment and Plan - Assessment (1) Acute renal failure Code(s): N17.9 - Acute kidney failure, unspecified Status: Acute Plan: Normal renal funciton at baseline Etiology of renal failure unclear. He has had urinary retention, s/p Cherry placement Currently non oliguric Obtain renal US, urine electrolytes UA without protein, infection Hypotensive currently, on IVF, maintain MAP > 65mmHG Repeat labs in AM including phosphorus Monitor urine output Avoid nephrotoxic agents. Hepatorenal syndrome is a diagnosis of exclusion. If it is determined that is the cause, it carries a poor prognosis. (2) Acute hyponatremia Code(s): E87.1 - Hypo-osmolality and hyponatremia Status: Acute Plan: Improving, most likely due to liver disease In addition he was on thiazide diuretics prior to arrival On 0.9% NS, continue Urine sodium pending (3) Acute hepatic encephalopathy Code(s): K72.00 - Acute and subacute hepatic failure without coma Status: Acute Plan: Continue lactulose GI following (4) Cirrhosis Code(s): K74.60 - Unspecified cirrhosis of liver Status: Acute Plan: He reportedly has quit drinking GI following
--- NOTE | 2018-02-02 16:54 | P.PNGI ---
Subjective Interval history: Pt more awake today. is hoping to bring him back home to [place]. Dr. Dyer had discussion with family regarding prognosis and recommend follow up with finishing room operator in [place]. <Malika Weeks - Last Filed: 02/02/18 16:52> Physical Exam Vital signs: Vital Signs 02/01/18 17:00 02/01/18 18:00 02/01/18 19:00 Temperature Pulse Rate 67 69 70 Respiratory Rate 7 L 11 L 21 Blood Pressure 118/59 L 109/58 L 103/58 L Pulse Oximetry 100 100 100 02/01/18 20:00 02/01/18 20:05 02/01/18 21:00 Temperature 97.7 F Pulse Rate 70 71 Respiratory Rate 14 15 Blood Pressure 106/55 L 113/54 L Pulse Oximetry 98 100 93 L 02/01/18 22:00 02/01/18 23:00 02/02/18 00:00 Temperature 97.8 F Pulse Rate 71 74 69 Respiratory Rate 19 17 10 L Blood Pressure 113/59 L 108/57 L 104/55 L Pulse Oximetry 100 99 100 02/02/18 01:00 02/02/18 02:00 02/02/18 03:00 Temperature Pulse Rate 69 69 72 Respiratory Rate 17 13 23 Blood Pressure 108/53 L 97/56 L 84/50 L Pulse Oximetry 99 100 99 02/02/18 04:00 02/02/18 05:00 02/02/18 06:00 Temperature 97.7 F Pulse Rate 68 65 66 Respiratory Rate 18 9 L 12 Blood Pressure 92/54 L 97/52 L 91/55 L Pulse Oximetry 100 100 100 02/02/18 07:00 02/02/18 08:00 02/02/18 09:00 Temperature 97.7 F Pulse Rate 67 66 64 Respiratory Rate 21 18 Blood Pressure 92/54 L 92/55 L Pulse Oximetry 100 96 02/02/18 12:00 02/02/18 16:00 02/02/18 16:01 Temperature 97.7 F 98 F Pulse Rate 62 61 Respiratory Rate 14 19 Blood Pressure 87/49 L 68/43 L Pulse Oximetry 96 99 Intake & Output 02/01/18 02/02/18 02/02/18 18:59 06:59 18:59 Intake Total 1600 / 1600 1720 / 1720 Output Total 450 / 450 800 / 800 Balance 1150 / 1150 920 / 920 Weight 85.5 kg Intake: IV 1000 / 1000 1000 / 1000 NS + KCl 20 mEq Inj 1,000 ML @ 1000 / 1000 100 mls/hr IV.CONT .Q10H [facility] Rx #:[id number] NS Inj 1,000 ML @ 84 mls/hr IV. 1000 / 1000 CONT .[id number] [facility] Rx#:[id number] Oral 600 / 600 720 / 720 Output: Urine 450 / 450 Urine Amount (Catheter) 800 / 800 Straight 800 / 800 Other: Date of Last Bowel Movement 02/01/18 02/01/18 # Bowel Movements 0 # Incontinent Bowel Movements 0 - Constitutional no acute distress - Routine HEENT Exam Head: Present: normocephalic, atraumatic Eye: Present: conjunctival icterus - Routine Respiratory Exam Absent: accessory muscle use - Routine Cardiovascular Exam Present: RRR - Routine Abdominal Exam Present: soft, normoactive bowel sounds, distended. Absent: tenderness - Routine Skin Exam Present: jaundice - Routine Neurological Exam Present: alert - Urinary Catheter Management Indwelling Urethral Catheter Cath placed during this visit: yes, but has since been removed by the nurse Reason for continuing: Decision to DC catheter Insertion date: 01/30/18 Insertion time: 15:45 Removal date: 01/31/18 Removal time: 10:30 Straight Cath placed during this visit: no <Malika Weeks - Last Filed: 02/02/18 16:52> Vital signs: Vital Signs 02/01/18 23:00 02/02/18 00:00 02/02/18 01:00 Temperature 97.8 F Pulse Rate 74 69 69 Respiratory Rate 17 10 L 17 Blood Pressure 108/57 L 104/55 L 108/53 L Pulse Oximetry 99 100 99 02/02/18 02:00 02/02/18 03:00 02/02/18 04:00 Temperature 97.7 F Pulse Rate 69 72 68 Respiratory Rate 13 23 18 Blood Pressure 97/56 L 84/50 L 92/54 L Pulse Oximetry 100 99 100 02/02/18 05:00 02/02/18 06:00 02/02/18 07:00 Temperature Pulse Rate 65 66 67 Respiratory Rate 9 L 12 21 Blood Pressure 97/52 L 91/55 L 92/54 L Pulse Oximetry 100 100 100 02/02/18 08:00 02/02/18 08:20 02/02/18 09:00 Temperature 97.7 F Pulse Rate 66 64 Respiratory Rate 18 Blood Pressure 92/55 L Pulse Oximetry 96 95 02/02/18 12:00 02/02/18 16:00 02/02/18 16:01 Temperature 97.7 F 98 F Pulse Rate 62 61 Respiratory Rate 14 19 Blood Pressure 87/49 L 68/43 L Pulse Oximetry 96 99 Intake & Output 02/02/18 02/02/18 02/03/18 06:59 18:59 06:59 Intake Total 1720 / 1720 1000 / 1000 Output Total 800 / 800 400 / 400 Balance 920 / 920 600 / 600 Weight 85.5 kg Intake: IV 1000 / 1000 1000 / 1000 NS Inj 1,000 ML @ 84 mls/hr IV. 1000 / 1000 1000 / 1000 CONT .[id number] [facility] Rx#:[id number] Oral 720 / 720 Output: Urine Amount (Catheter) 800 / 800 400 / 400 Indwelling Urethral Catheter 400 / 400 Straight 800 / 800 Other: Date of Last Bowel Movement 02/01/18 02/01/18 # Bowel Movements 0 # Incontinent Bowel Movements 0 - Urinary Catheter Management Indwelling Urethral Catheter Cath placed during this visit: no Straight Cath placed during this visit: no <Killian Dyer E - Last Filed: 02/02/18 22:08> Results - Labs CBC & Chem 7: 02/02/18 03:51 02/02/18 03:51 Laboratory Results - last 24 hr 02/01/18 02/02/18 02/02/18 20:49 03:51 03:51 WBC 8.9 RBC 1.90 L Hgb 7.7 L Hct 21.6 L MCV 113.4 H D MCH 40.2 H MCHC 35.4 RDW 19.6 H Plt Count 56 L MPV 8.3 Prelim Diff (Auto) Slide review pending Neut % (Auto) 84.4 H Lymph % (Auto) 9.3 [place] % (Auto) 6.2 Eos % (Auto) 0.0 Baso % (Auto) 0.1 Neut # (Auto) 7.5 Lymph # (Auto) 0.8 L [place] # (Auto) 0.6 Eos # (Auto) 0.0 Baso # (Auto) 0.0 WBC Differential . Diff Scan Auto diff confirmed Differential Comment . Platelet Estimate Low L Platelet Morphology Normal PT 27.4 H INR 2.7 Sodium Potassium Chloride Carbon Dioxide Anion Gap BUN Creatinine Estimated GFR POC Glucose 153 H Random Glucose Calcium Total Bilirubin AST ALT Alkaline Phosphatase Total Protein Albumin Ur Random Creatinine Ur Random Sodium 02/02/18 02/02/18 03:51 15:50 WBC RBC Hgb Hct MCV MCH MCHC RDW Plt Count MPV Prelim Diff (Auto) Neut % (Auto) Lymph % (Auto) [place] % (Auto) Eos % (Auto) Baso % (Auto) Neut # (Auto) Lymph # (Auto) [place] # (Auto) Eos # (Auto) Baso # (Auto) WBC Differential Diff Scan Differential Comment Platelet Estimate Platelet Morphology PT INR Sodium 125 L Potassium 4.4 Chloride 95 L Carbon Dioxide 19.7 L Anion Gap 10 BUN 82 H Creatinine 1.88 H Estimated GFR 39 L POC Glucose Random Glucose 131 H Calcium 7.7 L D Total Bilirubin 21.6 H AST 58 H ALT 67 Alkaline Phosphatase 90 Total Protein 3.6 L D Albumin 1.6 L Ur Random Creatinine 114 Ur Random Sodium 10 Microbiology 01/29/18 20:45 Blood - Peripheral Aerobic Blood Culture - Preliminary No growth in 4 days 01/29/18 20:45 Blood - Peripheral Anaerobic Blood Culture - Preliminary No growth in 4 days 01/29/18 20:15 Blood - Peripheral Aerobic Blood Culture - Preliminary No growth in 4 days 01/29/18 20:15 Blood - Peripheral Anaerobic Blood Culture - Preliminary No growth in 4 days - Procedures none <Malika Weeks - Last Filed: 02/02/18 16:52> - Labs CBC & Chem 7: 02/02/18 03:51 02/02/18 03:51 Laboratory Results - last 24 hr 02/02/18 02/02/18 02/02/18 03:51 03:51 03:51 WBC 8.9 RBC 1.90 L Hgb 7.7 L Hct 21.6 L MCV 113.4 H D MCH 40.2 H MCHC 35.4 RDW 19.6 H Plt Count 56 L MPV 8.3 Prelim Diff (Auto) Slide review pending Neut % (Auto) 84.4 H Lymph % (Auto) 9.3 [place] % (Auto) 6.2 Eos % (Auto) 0.0 Baso % (Auto) 0.1 Neut # (Auto) 7.5 Lymph # (Auto) 0.8 L [place] # (Auto) 0.6 Eos # (Auto) 0.0 Baso # (Auto) 0.0 WBC Differential . Diff Scan Auto diff confirmed Differential Comment . Platelet Estimate Low L Platelet Morphology Normal PT 27.4 H INR 2.7 Sodium 125 L Potassium 4.4 Chloride 95 L Carbon Dioxide 19.7 L Anion Gap 10 BUN 82 H Creatinine 1.88 H Estimated GFR 39 L Random Glucose 131 H Calcium 7.7 L D Total Bilirubin 21.6 H AST 58 H ALT 67 Alkaline Phosphatase 90 Total Protein 3.6 L D Albumin 1.6 L Ur Random Creatinine Ur Random Sodium 02/02/18 15:50 WBC RBC Hgb Hct MCV MCH MCHC RDW Plt Count MPV Prelim Diff (Auto) Neut % (Auto) Lymph % (Auto) [place] % (Auto) Eos % (Auto) Baso % (Auto) Neut # (Auto) Lymph # (Auto) [place] # (Auto) Eos # (Auto) Baso # (Auto) WBC Differential Diff Scan Differential Comment Platelet Estimate Platelet Morphology PT INR Sodium Potassium Chloride Carbon Dioxide Anion Gap BUN Creatinine Estimated GFR Random Glucose Calcium Total Bilirubin AST ALT Alkaline Phosphatase Total Protein Albumin Ur Random Creatinine 114 Ur Random Sodium 10 Microbiology 01/29/18 20:45 Blood - Peripheral Aerobic Blood Culture - Preliminary No growth in 4 days 01/29/18 20:45 Blood - Peripheral Anaerobic Blood Culture - Preliminary No growth in 4 days 01/29/18 20:15 Blood - Peripheral Aerobic Blood Culture - Preliminary No growth in 4 days 01/29/18 20:15 Blood - Peripheral Anaerobic Blood Culture - Preliminary No growth in 4 days - Imaging Impressions Abdomen/Bladder Ultrasound 02/02/18 00:00 CONCLUSION: 1. Negative renal sonogram. 2. No evidence of hydronephrosis <Killian Dyer - Last Filed: 02/02/18 22:08> Assessment and Plan (1) History of ETOH abuse Status: Acute Code(s): Z87.898 - Personal history of other specified conditions (2) Acute hepatic encephalopathy Status: Acute Code(s): K72.00 - Acute and subacute hepatic failure without coma (3) Cirrhosis Status: Acute Code(s): K74.60 - Unspecified cirrhosis of liver - Plan Assessment: - Cirrhosis- newly diagnosed during 13 day admission at [facility] a month ago (pt from [place], here on vacation) Per , pt was evaluated at hospital for extremity and abdominal swelling. Also has been jaundiced for multiple months. During admission pt placed on steroids for ETOH hepatitis which has since been tapered, had EGD which she states was normal. Denies paracentesis. States swelling improved significantly since being started on diuretics. Prior to admission pt had not seen a doctor in 30 years. Coagulopathy (INR 1.9) Hypoalbuminemia (albumin 2.3) Thrombocytopenia ( platelets 53) On admission (01/29) T bili-23.5 AST-80 ALT-92 Alk phos-118 - Encephalopathy- multifactorial- ammonia 178 as well as imaging consistent with recent lacunar infarct, left cerebral infarct vs demyelination Per pt has been increasingly lethargic since Tuesday, states has not been taking Lactulose as prescribed - History of ETOH abuse- no ETOH since 13 day admission at [facility] a month ago - Electrolyte imbalance- per [facility] (01/31) Pt in ICU. Eyes open to stimulation. Remains extremely lethargic. T bili increased today. Will add Solumedrol and Pentoxifylline. Ammonia now WNL (02/01) Pt sleeping, per he did not sleep at all last night and just finally fell asleep prior to my exam, per her request I did not wake pt up. She reports he has been much more alert today and talkative. Some improvement in LFTs today. (02/02) Pt more awake today. hoping to take pt home to [place]. At this time agree with continuing current supportive care and advise follow up with Customer Account Representative in [place]. Plan: Prednisolone Pentoxifylline Lactulose Xifaxan Inderal Spironolactone ETOH abstinence Our service will sign off, recommend follow up with hepatology in [place] Pt has been seen and examined by myself and Dr. Dyer and this note is written on his behalf <Malika Weeks - Last Filed: 02/02/18 16:52> (1) History of ETOH abuse Status: Acute Code(s): Z87.898 - Personal history of other specified conditions (2) Acute hepatic encephalopathy Status: Acute Code(s): K72.00 - Acute and subacute hepatic failure without coma (3) Cirrhosis Status: Acute Code(s): K74.60 - Unspecified cirrhosis of liver - Attending Attestation Patient seen and examined Agree with above Continue with current supportive care Monitor labs Patient is better served in a tertiary type setting with hepatologists and transplant services Patient's prognosis is very poor Apart from nutrition and supportive efforts not much can be done We will sign off <Killian Dyer E - Last Filed: 02/02/18 22:08>
--- NOTE | 2018-02-02 17:38 | P.PNNP ---
Physical Exam Vital signs: Vital Signs 02/01/18 18:00 02/01/18 19:00 02/01/18 20:00 Temperature 97.7 F Pulse Rate 69 70 70 Respiratory Rate 11 L 21 14 Blood Pressure 109/58 L 103/58 L 106/55 L Pulse Oximetry 100 100 98 02/01/18 20:05 02/01/18 21:00 02/01/18 22:00 Temperature Pulse Rate 71 71 Respiratory Rate 15 19 Blood Pressure 113/54 L 113/59 L Pulse Oximetry 100 93 L 100 02/01/18 23:00 02/02/18 00:00 02/02/18 01:00 Temperature 97.8 F Pulse Rate 74 69 69 Respiratory Rate 17 10 L 17 Blood Pressure 108/57 L 104/55 L 108/53 L Pulse Oximetry 99 100 99 02/02/18 02:00 02/02/18 03:00 02/02/18 04:00 Temperature 97.7 F Pulse Rate 69 72 68 Respiratory Rate 13 23 18 Blood Pressure 97/56 L 84/50 L 92/54 L Pulse Oximetry 100 99 100 02/02/18 05:00 02/02/18 06:00 02/02/18 07:00 Temperature Pulse Rate 65 66 67 Respiratory Rate 9 L 12 21 Blood Pressure 97/52 L 91/55 L 92/54 L Pulse Oximetry 100 100 100 02/02/18 08:00 02/02/18 09:00 02/02/18 12:00 Temperature 97.7 F 97.7 F Pulse Rate 66 64 62 Respiratory Rate 18 14 Blood Pressure 92/55 L 87/49 L Pulse Oximetry 96 96 02/02/18 16:00 02/02/18 16:01 Temperature 98 F Pulse Rate 61 Respiratory Rate 19 Blood Pressure 68/43 L Pulse Oximetry 99 Intake & Output 02/01/18 02/02/18 02/02/18 18:59 06:59 18:59 Intake Total 1600 / 1600 1720 / 1720 1000 / 1000 Output Total 450 / 450 800 / 800 Balance 1150 / 1150 920 / 920 1000 / 1000 Weight 85.5 kg Intake: IV 1000 / 1000 1000 / 1000 1000 / 1000 NS + KCl 20 mEq Inj 1,000 ML @ 1000 / 1000 100 mls/hr IV.CONT .Q10H [facility] Rx #:[id number] NS Inj 1,000 ML @ 84 mls/hr IV. 1000 / 1000 1000 / 1000 CONT .[id number] [facility] Rx#:[id number] Oral 600 / 600 720 / 720 Output: Urine 450 / 450 Urine Amount (Catheter) 800 / 800 Straight 800 / 800 Other: Date of Last Bowel Movement 02/01/18 02/01/18 # Bowel Movements 0 # Incontinent Bowel Movements 0 - Urinary Catheter Management Indwelling Urethral Catheter Cath placed during this visit: yes, but has since been removed by the nurse Reason for continuing: Decision to DC catheter Insertion date: 01/30/18 Insertion time: 15:45 Removal date: 01/31/18 Removal time: 10:30 Straight Cath placed during this visit: no Assessment and Plan - Assessment (1) Acute renal failure Code(s): N17.9 - Acute kidney failure, unspecified Status: Acute Plan: Normal renal funciton at baseline Etiology of renal failure unclear. He has had urinary retention, s/p Cherry placement Currently non oliguric Obtain renal US, urine electrolytes UA without protein, infection Hypotensive currently, on IVF, maintain MAP > 65mmHG Repeat labs in AM including phosphorus Monitor urine output Avoid nephrotoxic agents. Hepatorenal syndrome is a diagnosis of exclusion. If it is determined that is the cause, it carries a poor prognosis. (2) Acute hyponatremia Code(s): E87.1 - Hypo-osmolality and hyponatremia Status: Acute Plan: Improving, most likely due to liver disease In addition he was on thiazide diuretics prior to arrival On 0.9% NS, continue Urine sodium pending (3) Acute hepatic encephalopathy Code(s): K72.00 - Acute and subacute hepatic failure without coma Status: Acute Plan: Continue lactulose GI following (4) Cirrhosis Code(s): K74.60 - Unspecified cirrhosis of liver Status: Acute Plan: He reportedly has quit drinking GI following - Attending Attestation Please see full note of SALMA Epps. Agree with above assessment and plan. He is non oliguric, making hepatorenal syndrome less likely. Obtain urine electrolytes, withdraw diuretics, add albumin. Discussed with Dr. Cid and patient's family.
--- NOTE | 2018-02-02 17:58 | US ---
EXAM DATE: 02/02/2018 4:53 PM EDT AGE/SEX: 47 years / Male INDICATIONS: Increased lab values. CLINICAL DATA: This is the patient's initial encounter. Patient reports that signs and symptoms have been present for 1 day and indicates a pain score of 0/10. MEDICAL/SURGICAL HISTORY: Cirrhosis. . COMPARISON: No prior exams available for comparison. MEASUREMENTS: Right Kidney:__12.1 x 5.0 x 5.4 cm Left Kidney:__11.6 x 5.4 x 5.3 cm FINDINGS: Right Kidney: Normal echotexture and cortical thickness. No mass or hydronephrosis. Left Kidney: Normal echotexture and cortical thickness. No mass or hydronephrosis. Bladder: Cherry catheter is present. Bladder decompressed. Other: None. CONCLUSION: 1. Negative renal sonogram. 2. No evidence of hydronephrosis Electronically signed by: Roldan Hart MD 02/02/2018 5:56 PM EDT
[2018-02-02] MEDS: Albumin Human 25% Inj 100 ML IV.SIG SCH (20:21)
[2018-02-02] MEDS: prednisoLONE 10 MG ODT TAB PO SCH (20:22)
[2018-02-03] MEDS: Sod Chloride 0.9% Inj 1,000 ML IV.CONT SCH (03:11)
[2018-02-03] MEDS: Insulin NovoLOG Aspart Correctional Sugar Inj SQ SCH (03:11)
[2018-02-03] MEDS: Chlorhexidine Gluconate 2% 1 Pack (2 Cloths) TOPICAL SCH (03:12)
[2018-02-03 05:31] LABS: INR 2.9 Ratio; Prothrombin Time 29.4 sec (9.8-11.6)
[2018-02-03 05:58] LABS: Alanine Aminotransferase 95 U/L (12-78); Alkaline Phosphatase 98 U/L (45-117); Anion Gap 16 meq/L (5-15); Aspartate Aminotransferase 84 U/L (15-37); Blood Urea Nitrogen 114 mg/dL (7-18); Calcium 8.3 mg/dL (8.5-10.1); Carbon Dioxide 14.3 meq/L (21.0-32.0); Chloride 91 meq/L (98-107); Glomerular Filtration Rate 30 mL/min (>89); Glucose,Random 110 mg/dL (74-106); Total Protein 3.9 g/dL (6.4-8.2)
[2018-02-03 06:06] LABS: Sodium 121 meq/L (136-145)
--- NOTE | 2018-02-03 09:42 | P.PN ---
Subjective Interval history: Follow-up for alcoholic hepatitis, worsening renal function, hyponatremia. Patient is currently awake in no acute distress. Denies any chest pain, shortness of breath, fever or chills. No other acute concerns. Physical Exam Vital signs: Vital Signs 02/02/18 12:00 02/02/18 16:00 02/02/18 16:01 Temperature 97.7 F 98 F Pulse Rate 62 61 Respiratory Rate 14 19 Blood Pressure 87/49 L 68/43 L Pulse Oximetry 96 99 Intake & Output 02/02/18 02/03/18 02/03/18 18:59 06:59 18:59 Intake Total 1000 / 1000 1480 / 1480 Output Total 400 / 400 1000 / 1000 Balance 600 / 600 480 / 480 Weight 89 kg Intake: IV 1000 / 1000 1000 / 1000 NS Inj 1,000 ML @ 100 mls/hr IV 1000 / 1000 1000 / 1000 .CONT .Q10H [facility] Rx#:[id number] Oral 480 / 480 Output: Urine 1000 / 1000 Urine Amount (Catheter) 400 / 400 Indwelling Urethral Catheter 400 / 400 Other: Date of Last Bowel Movement 02/01/18 02/02/18 # Bowel Movements 1 Narrative: GENERAL: Alert, oriented 3, NAD. SKIN: Warm and dry - overall jaundiced. HEAD: Normocephalic. EYES: significant scleral icterus. No injection or drainage. NECK: Supple, trachea midline. No JVD or lymphadenopathy. CARDIOVASCULAR: Regular rate and rhythm without murmurs, gallops, or rubs. RESPIRATORY: Breath sounds equal bilaterally. No accessory muscle use. GASTROINTESTINAL: Abdomen soft, non-tender, nondistended. MUSCULOSKELETAL: No cyanosis, or edema. BACK: Nontender without obvious deformity. No CVA tenderness. - Urinary Catheter Management Indwelling Urethral Catheter Cath placed during this visit: yes, but has since been removed by the nurse Reason for continuing: Decision to DC catheter Insertion date: 01/30/18 Insertion time: 15:45 Removal date: 01/31/18 Removal time: 10:30 Straight Cath placed during this visit: no Results - Labs CBC & Chem 7: 02/02/18 03:51 02/03/18 04:37 Laboratory Results - last 24 hr 02/02/18 02/03/18 02/03/18 15:50 04:37 04:37 PT 29.4 H INR 2.9 Sodium 121 L* Potassium 5.0 Chloride 91 L Carbon Dioxide 14.3 L Anion Gap 16 H BUN 114 H Creatinine 2.35 H Estimated GFR 30 L Random Glucose 110 H Calcium 8.3 L Total Bilirubin 23.7 H AST 84 H ALT 95 H Alkaline Phosphatase 98 Total Protein 3.9 L Albumin 2.0 L Ur Random Creatinine 114 Ur Random Sodium 10 Microbiology 01/29/18 20:45 Blood - Peripheral Aerobic Blood Culture - Preliminary No growth in 4 days 01/29/18 20:45 Blood - Peripheral Anaerobic Blood Culture - Preliminary No growth in 4 days 01/29/18 20:15 Blood - Peripheral Aerobic Blood Culture - Preliminary No growth in 4 days 01/29/18 20:15 Blood - Peripheral Anaerobic Blood Culture - Preliminary No growth in 4 days - Imaging Impressions Abdomen/Bladder Ultrasound 02/02/18 00:00 CONCLUSION: 1. Negative renal sonogram. 2. No evidence of hydronephrosis - Procedures none Assessment and Plan - Assessment (1) Hepatic encephalopathy Code(s): K72.90 - Hepatic failure, unspecified without coma Status: Acute (2) Cirrhosis Code(s): K74.60 - Unspecified cirrhosis of liver Status: Acute (3) Hyponatremia Code(s): E87.1 - Hypo-osmolality and hyponatremia Status: Acute (4) Hypokalemia Code(s): E87.6 - Hypokalemia Status: Acute (5) Thrombocytopenia Code(s): D69.6 - Thrombocytopenia, unspecified Status: Acute - Plan Mr. Kilpatrick is a 47 year old male with a history of Alcoholism, cirrhosis who was admitted to the hospital due to declining mental status, lethargy, confusion. He was previously admitted and treated at [facility] and was discharged on prednisone. His last alcohol use was about 6-8 weeks ago. On arrival, BP 133/62, HR 76, O2 sat 100% on 2L NC, Afebrile. Hemoglobin 9.3, platelets 49, no previous labs for comparison. INR 1.8. Na 121. K+ 2.8. Lactic Acid 2.2. Ammonia 178. Total Bili 23.5. CT Head w/ small area low density medial right basal ganglia related to recent lacunar infarct, left cerebral infarct vs demyelination. He is DNR. Acute alcoholic hepatitis Alcoholic cirrhosis - Maddrey's Discrimination Function score increased from 61 to 94.7 2017. - GI is following. Continue Pentoxifylline 400mg TID. - Continue prednisolone 20mg BID with a goal to continue for 28 days and taper off. - Continue Lactulose 30mL Q8hrs to achieve 2-3 loose bowel movements. - Continue Rifaximin 550mg Q12hrs. - Not a candidate for Liver transplantation due to alcohol use within 6-8 weeks. - Palliative care following. - Mentation is Clinically improving. However, MDF is worse Mild Acute kidney injury Hyponatremia Hypokalemia - Creatinine 1.07 ==> 1.88 ==> 2.35 - Avoid nephrotoxins. Could be pre-renal but type 2 hepatorenal is also a possibility. - Hyponatremia is worsening Na 125 --> 121 on 02/03/2018. - Potassium is also elevated to 5.0. - Nephrology following. Patient is receiving Albumin. Likely recent CVA - CT head shows recent right basal ganglia lacunar infarction. - Neurology consulted. Due to low platelets and hepatitis, maybe difficult to initiate any anti-platelets. Thrombocytopenia - Plt count 48K. Likely due to alcoholism and liver disease. - PLT count is improved from 48K ==> 56K. GERD - Protonix 40mg Qday. Full code. SCDs. Remains in poor prognosis. Discussed with Palliative care. If patient is able to sit in a wheelchair, he maybe able to take a flight to his home state [place].
[2018-02-03] MEDS: Albumin Human 25% Inj 100 ML IV.SIG SCH (10:40)
[2018-02-03] MEDS: prednisoLONE 10 MG ODT TAB PO SCH (10:40)
[2018-02-03] MEDS: Pentoxifylline 400 MG Controlled Release Tablet PO SCH (10:41)
[2018-02-03] MEDS: Spironolactone 50 MG Tablet PO SCH (10:41)
[2018-02-03] MEDS: rifAXIMin 550 MG Tablet PO SCH (10:41)
[2018-02-03] MEDS: Propranolol 10 MG Tablet PO SCH (10:41)
--- NOTE | 2018-02-03 11:57 | P.PNPAL ---
Reason for Visit Reason for visit: a. To assist with evaluation and management of symptoms including: Lethargy, encephalopathy b. To assist medical decision maker(s) with: better understanding of current medical conditions; weighing benefits/burdens of medical treatment options; making medical treatment decisions. Subjective Subjective/Interval History: Patient seen for follow-up on symptom management of lethargy and encephalopathy. This is a 47-year-old male visiting [facility] from [place] who was brought to the [facility] emergency department 01/29 with altered mental status. He had previously been seen in [facility] and diagnosed with cirrhosis in the last month. Previous to this he had not seen a doctor in approximately 30 years. When he was informed of the cirrhosis diagnosis, he quit drinking. Urine toxicology on admission was negative, serum alcohol less than 3. His presenting labs showed an ammonia level of 178, INR 1.8. Lactulose was increased and Xifaxan added with subsequent resolution of hyperammonemia, down to 21 mcmol/L on 01/31. He then became more arousable, oriented 3, but remained lethargic and encephalopathic. INR on admission was 1.8, PT 18.7 which has continued to trend upward, now at 2.9/29.4 respectively. Bilirubin remains elevated at 23.7 mg/dL today, stable from admission level of 23.5 mg/ dL. Baseline creatinine was 1.07, rising, in spite of the IV fluid rehydration to 2.35 mg/dL today. He had been found to have urinary retention with an approximate 500 mL volume with each catheterization. Cherry catheter was placed for optimal drainage. He was evaluated by nephrology for possible hepatorenal syndrome. Ultrasound of the kidney/renal/bladder showed negative renal sonogram with no evidence of hydronephrosis. Urine random creatinine was 114, urine random sodium 10. Presenting sodium was 121 and in spite of continuous infusion of normal saline, remains at 121 today. Maddrey's discriminant function was 61 on presentation, rising to 103.7 today despite optimal medical treatment. MELD score is 39, yielding 52.6% estimated 3 month mortality. In addition to lactulose and Xifaxan, he is also receiving pentoxifylline 400 mg 3 times daily, prednisolone 20 mg p.o. twice daily, propranolol 10 mg p.o. twice daily and spironolactone 50 mg p.o. daily. Blood cultures have been negative 5 days. Physical therapy evaluation indicated overall mobility with 1 person assist out of bed standing to walking with wobbly knees, moderate risk for falling, will need rolling walker for balance and safety. Pending follow- up physical therapy evaluation to determine if patient can sit up in wheelchair for transport back to [place]. . . Family/Friend Interactions: Spoke with , last evening regarding discharge home. Initial plan was to mobilize patient over the next 1-3 days while travel plans were finalized for transport back to [place]. As the family drove to [place] from [place], which is an 18 hour ride, it was felt that the patient would tolerate a short flight better than a long drive and his made reservations to fly patient back on Tuesday. After a discussion with Dr. Dyer from revealed the patient's poor prognosis, the insisted upon immediate discharge to take the patient back to their condo pending Saturdays flight back to [place]. This event coincided with the consultation from nephrology and in order to have that assessment completed, she agreed to leave patient here overnight for discharge Tuesday morning. This plan was discussed with Dr. Cid who agreed that if PT could evaluate and ascertain that the patient was safe to sit up in a wheelchair , he could be discharged. PT evaluation is currently pending. Plan for discharge home later today. . Objective Vital Signs: Vital Signs 02/02/18 12:00 02/02/18 16:00 02/02/18 16:01 Temperature 97.7 F 98 F Pulse Rate 62 61 Respiratory Rate 14 19 Blood Pressure 87/49 L 68/43 L Pulse Oximetry 96 99 Intake & Output 02/02/18 02/03/18 02/03/18 18:59 06:59 18:59 Intake Total 1000 / 1000 1580 / 1580 Output Total 400 / 400 1000 / 1000 Balance 600 / 600 580 / 580 Weight 196 lb 3.382 oz Intake: IV 1000 / 1000 1100 / 1100 NS Inj 1,000 ML @ 100 mls/hr IV 1000 / 1000 1000 / 1000 .CONT .Q10H [facility] Rx#:[id number] Flexbumin 25% Inj 100 ML @ 60 100 / 100 mls/hr IV.SIG Q12H [facility] Rx#: [id number] Oral 480 / 480 Output: Urine 1000 / 1000 Urine Amount (Catheter) 400 / 400 Indwelling Urethral Catheter 400 / 400 Other: Date of Last Bowel Movement 02/01/18 02/02/18 # Bowel Movements 1 Physical Exam: CONSTITUTIONAL/GENERAL: This is an adequately nourished patient, lethargic, in no apparent distress. TUBES/LINES/DRAINS: PIV, Cherry. SKIN: Generalized jaundice, no rashes, or lesions. Dry flaking skin. No wounds seen anteriorly. Skin temperature appropriate. Not diaphoretic. HEAD: Atraumatic. Normocephalic. EYES: Pupils equal and round and reactive. Extraocular motions intact. Positive scleral icterus. Fundi not examined. ENT: Nose without bleeding or purulent drainage. NECK: Trachea midline. Supple, nontender. No palpable thyroid enlargement or nodularity. CARDIOVASCULAR: Regular rate and rhythm without murmurs, gallops, or rubs. No JVD. Peripheral pulses symmetric. RESPIRATORY/CHEST: Symmetric, unlabored respirations. Clear to auscultation. Breath sounds equal bilaterally. No wheezes, rales, or rhonchi. GASTROINTESTINAL: Abdomen soft, non-tender, nondistended. Positive hepatomegaly , no palpable masses. No guarding. Bowel sounds present. GENITOURINARY: Without palpable bladder distension. Cherry catheter in place. MUSCULOSKELETAL: Extremities without clubbing or cyanosis, 1+ dependent edema. No joint tenderness or effusion noted. No calf tenderness. No mottling or clubbing. LYMPHATICS: No palpable cervical or supraclavicular adenopathy. NEUROLOGICAL: Awake, lethargic, responds slowly, oriented 3. PSYCHIATRIC: Calm, appropriate. . Diagnostic Tests Laboratory: Laboratory Results - last 72 hr 01/31/18 01/31/18 02/01/18 11:19 21:37 11:00 WBC RBC Hgb Hct MCV MCH MCHC RDW Plt Count MPV Prelim Diff (Auto) Neut % (Auto) Lymph % (Auto) [place] % (Auto) Eos % (Auto) Baso % (Auto) Neut # (Auto) Lymph # (Auto) [place] # (Auto) Eos # (Auto) Baso # (Auto) WBC Differential Diff Scan Differential Comment Platelet Estimate Platelet Morphology PT INR Sodium 126 L Potassium 4.1 D Chloride 94 L Carbon Dioxide 18.4 L Anion Gap 14 BUN 57 H Creatinine 1.57 H Estimated GFR 48 L POC Glucose 187 H Random Glucose 125 H Calcium 8.7 Total Bilirubin 25.8 H AST 61 H ALT 78 Alkaline Phosphatase 110 Ammonia 21 Total Protein 4.4 L Albumin 2.0 L Ur Random Creatinine Ur Random Sodium 02/01/18 02/01/18 02/02/18 11:00 20:49 03:51 WBC 8.9 RBC 1.90 L Hgb 7.7 L Hct 21.6 L MCV 113.4 H D MCH 40.2 H MCHC 35.4 RDW 19.6 H Plt Count 56 L MPV 8.3 Prelim Diff (Auto) Slide review pending Neut % (Auto) 84.4 H Lymph % (Auto) 9.3 [place] % (Auto) 6.2 Eos % (Auto) 0.0 Baso % (Auto) 0.1 Neut # (Auto) 7.5 Lymph # (Auto) 0.8 L [place] # (Auto) 0.6 Eos # (Auto) 0.0 Baso # (Auto) 0.0 WBC Differential . Diff Scan Auto diff confirmed Differential Comment . Platelet Estimate Low L Platelet Morphology Normal PT 22.0 H INR 2.2 Sodium Potassium Chloride Carbon Dioxide Anion Gap BUN Creatinine Estimated GFR POC Glucose 153 H Random Glucose Calcium Total Bilirubin AST ALT Alkaline Phosphatase Ammonia Total Protein Albumin Ur Random Creatinine Ur Random Sodium 02/02/18 02/02/18 02/02/18 03:51 03:51 15:50 WBC RBC Hgb Hct MCV MCH MCHC RDW Plt Count MPV Prelim Diff (Auto) Neut % (Auto) Lymph % (Auto) [place] % (Auto) Eos % (Auto) Baso % (Auto) Neut # (Auto) Lymph # (Auto) [place] # (Auto) Eos # (Auto) Baso # (Auto) WBC Differential Diff Scan Differential Comment Platelet Estimate Platelet Morphology PT 27.4 H INR 2.7 Sodium 125 L Potassium 4.4 Chloride 95 L Carbon Dioxide 19.7 L Anion Gap 10 BUN 82 H Creatinine 1.88 H Estimated GFR 39 L POC Glucose Random Glucose 131 H Calcium 7.7 L D Total Bilirubin 21.6 H AST 58 H ALT 67 Alkaline Phosphatase 90 Ammonia Total Protein 3.6 L D Albumin 1.6 L Ur Random Creatinine 114 Ur Random Sodium 10 02/03/18 02/03/18 04:37 04:37 WBC RBC Hgb Hct MCV MCH MCHC RDW Plt Count MPV Prelim Diff (Auto) Neut % (Auto) Lymph % (Auto) [place] % (Auto) Eos % (Auto) Baso % (Auto) Neut # (Auto) Lymph # (Auto) [place] # (Auto) Eos # (Auto) Baso # (Auto) WBC Differential Diff Scan Differential Comment Platelet Estimate Platelet Morphology PT 29.4 H INR 2.9 Sodium 121 L* Potassium 5.0 Chloride 91 L Carbon Dioxide 14.3 L Anion Gap 16 H BUN 114 H Creatinine 2.35 H Estimated GFR 30 L POC Glucose Random Glucose 110 H Calcium 8.3 L Total Bilirubin 23.7 H AST 84 H ALT 95 H Alkaline Phosphatase 98 Ammonia Total Protein 3.9 L Albumin 2.0 L Ur Random Creatinine Ur Random Sodium Result Diagrams: 02/02/18 03:51 02/03/18 04:37 Microbiology: Microbiology 01/29/18 20:45 Aerobic Blood Culture - Final Blood - Peripheral No growth in 5 days Anaerobic Blood Culture - Final No growth in 5 days 01/29/18 20:15 Aerobic Blood Culture - Final Blood - Peripheral No growth in 5 days Anaerobic Blood Culture - Final No growth in 5 days Imaging: Chest X-Ray 01/29/18 20:46 CONCLUSION: No acute cardiopulmonary process. Head CT 01/29/18 20:46 CONCLUSION: 1. Small area of low density in the medial right basal ganglia likely related to a recent lacunar infarct. 2. Mild area of decreased density in the left cerebral white matter representing either a prior lacunar infarct or an area of demyelination. 3. No acute areas of hemorrhage or mass effect is seen. Carotid Doppler Study 01/30/18 00:00 CONCLUSION: No evidence of flow-limiting carotid stenosis. Head MRI 01/31/18 00:00 CONCLUSION: 1. No evidence of acute infarction. 2. Signal abnormalities in the left moore radiata and right striatum suggest areas of gliosis or old lacunar infarcts. 3. No focal areas of abnormal enhancement. Abdomen/Bladder Ultrasound 02/02/18 00:00 CONCLUSION: 1. Negative renal sonogram. 2. No evidence of hydronephrosis Procedures: None. . Assessment and Plan Pertinent Non-Medical Issues: Psychosocial: He was born in [place] and continues to live and worked there. 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 He has a and 3 children, one 13-year-old daughter, 2 sons, 24 and 27 years old. Spiritual: Not an important concept to the patient. Legal: No advanced directives have been completed. Per [place] statutes, his would be the proxy decision-maker. Ethical issues impacting care: None noted. . Important Contacts: : Michelle Kilpatrick Prognosis: His prognosis is poor. He is severely jaundiced, ammonia of 178 in spite of some ingestion of lactulose since his discharge from the hospital in [place] 4 weeks ago. He has not been consistent in taking his lactulose, however in spite of intermittent indigestion, his ammonia continues to rise. He is auto anticoagulated with an INR of 1.9. His bilirubin is over 23. He is critically ill, very lethargic and per his 's discussion with me, he would not wish to be intubated or resuscitated. The possibility must be entertained that he will not survive this hospitalization. . Code Status: No Code DNR Plan: PLAN: Legal decision maker: As patient is incapacitated to make his own decisions due to lethargy, per [place] statutes, his would be his proxy decision- maker. Goals: Aggressive short of no code. CODE STATUS: DNR SYMPTOMS: * Lethargy: Multifactorial to include liver failure, hyponatremia. Sodium level remains at 121. Improving, more awake with normalized ammonia levels. Oriented, slow to answer. * Encephalopathy: EEG showed moderate encephalopathy. CT of the brain showed a small 0.7 cm hypodensity in the medial aspect of the right basal ganglia, 1 cm area of low density in the left cerebral white matter thought to be related to recent vs. prior lacunar infarcts. Brain MRI showed no evidence of acute infarction. Signal abnormalities in the left moore radiata and right stratum suggests areas of gliosis or old lacunar infarcts. Platelets are 56, compromising ability to receive antiplatelets. 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 Palliative care will continue to follow the patient during hospital course as condition evolves, to assist patient/decision-maker with understanding of their medical conditions, weighing benefits/burdens of treatment options, for clarification of goals of treatment. Additionally will assist with any symptoms of palliative concern. . Attestation Collaborating Comments: Chart reviewed. Case discussed with palliative care CUPOLA WORKER. Above CUPOLA WORKER note reviewed and I concur. . Attestation: To help prompt me to consider important information that might be impacting today's encounter and assessment, information from prior notes written by myself or my colleagues may have been "brought forward" into today's note. My signature on this note, however, is an attestation that I personally performed the exam, history, and/or decision-making noted today, and, unless otherwise indicated, the interactions with patient, family, and staff as well as the review of records all occurred today. I also attest that the listed assessment and stated plan reflect my best clinical judgment today based on the combination of historical information, prior notes, and today's exam/ interactions. When time spent is documented, it refers only to time spent today by the signer, or if indicated, combined time spent today by collaborating physician/nurse practitioner. .
--- NOTE | 2018-02-03 14:32 | P.PNNP ---
Subjective Interval history: He is sitting up in a chair. Severely jaundiced. Renal function is worse, he was hypotensive overnight. The and family have met with palliative care, and understand his prognosis is poor. In light of that they wish to fly him home back to [place] tomorrow. Plan is to discharge him with a cherry catheter today/tomorrow and to follow up with his PCP Tuesday to discuss the plan. The patient himself is not in distress. He is non oliguric. <Arianna Thornton - Last Filed: 02/03/18 14:22> Physical Exam Vital signs: Vital Signs 02/02/18 16:00 02/02/18 16:01 Temperature 98 F Pulse Rate 61 Respiratory Rate 19 Blood Pressure 68/43 L Pulse Oximetry 99 Intake & Output 02/02/18 02/03/18 02/03/18 18:59 06:59 18:59 Intake Total 1000 / 1000 1580 / 1580 Output Total 400 / 400 1000 / 1000 Balance 600 / 600 580 / 580 Weight 89 kg Intake: IV 1000 / 1000 1100 / 1100 NS Inj 1,000 ML @ 100 mls/hr IV 1000 / 1000 1000 / 1000 .CONT .Q10H DELANO Rx#:[id number] Flexbumin 25% Inj 100 ML @ 60 100 / 100 mls/hr IV.SIG Q12H DELANO Rx#: [id number] Oral 480 / 480 Output: Urine 1000 / 1000 Urine Amount (Catheter) 400 / 400 Indwelling Urethral Catheter 400 / 400 Other: Date of Last Bowel Movement 02/01/18 02/02/18 # Bowel Movements 1 - Constitutional no acute distress, chronically ill appearing, somnolent - Routine HEENT Exam Head: Present: normocephalic Eye: Present: conjunctival icterus - Routine Neck Exam Present: supple, full ROM. Absent: JVD - Routine Respiratory Exam Present: CTA bilaterally. Absent: accessory muscle use - Routine Cardiovascular Exam Present: RRR, S1, S2 - Routine Abdominal Exam Present: soft, normoactive bowel sounds. Absent: tenderness, distended - Routine Extremities Exam Present: pulses intact. Absent: edema - Routine Skin Exam Present: intact, warm, jaundice - Routine Neurological Exam Present: alert, altered mental status - Detailed Neurological Exam: Coma Scale Eye Opening: Spontaneous Verbal Response: Words Motor Response: Obey commands [place] Coma Scale Total: 13 - Routine Psychiatric Exam Present: unable to assess - Urinary Catheter Management Indwelling Urethral Catheter Cath placed during this visit: yes Urethral indwelling: Yes Reason for continuing: Acute urinary retention Insertion date: 02/02/18 (to keep at discharge) Insertion time: 15:45 Straight Cath placed during this visit: yes, intermittently Urethral indwelling: No Reason for continuing: Acute urinary retention <Arianna Thornton - Last Filed: 02/03/18 14:22> Vital signs: Intake & Output 02/03/18 02/04/18 02/04/18 18:59 06:59 18:59 Other: Date of Last Bowel Movement 02/02/18 - Urinary Catheter Management Indwelling Urethral Catheter Cath placed during this visit: no Straight Cath placed during this visit: no <Pineda Beckham - Last Filed: 02/04/18 11:09> Assessment and Plan - Assessment (1) Acute renal failure Code(s): N17.9 - Acute kidney failure, unspecified Status: Acute Plan: Normal renal function at baseline Etiology of renal failure unclear. He did have retention on arrival, s/p Cherry placement Renal US negative His renal function is worse, non oliguric but output may have slowed. Blood pressure is better, hypotensive earlier. Worsening metabolic acidosis Overall he is not doing well. The does not want any further investigation as he is going to be discharged to fly back to [place] and follow up with PCP given his poor prognosis with liver disease. We discussed the risk of sudden (even during the flight home) given acute renal failure and significant metabolic derangements, she is in full understanding and still wishes to defer any further treatment and continues to make plans for discharge. Okay to discharge with a Cherry catheter. Avoid nephrotoxic agents. Hepatorenal syndrome is a diagnosis of exclusion. If it is determined that is the cause, it carries a poor prognosis. (2) Acute hyponatremia Code(s): E87.1 - Hypo-osmolality and hyponatremia Status: Acute Plan: Worse, most likely due to liver disease In addition he was on thiazide diuretics prior to arrival IVF was stopped Urine sodium is low PO fluid restriction recommended. (3) Acute hepatic encephalopathy Code(s): K72.00 - Acute and subacute hepatic failure without coma Status: Acute Plan: Continue lactulose GI following (4) Cirrhosis Code(s): K74.60 - Unspecified cirrhosis of liver Status: Acute Plan: He reportedly has quit drinking GI following He is a poor candidate for liver transplant, palliative has met with the family. <Arianna Thornton - Last Filed: 02/03/18 14:22> - Assessment (1) Acute renal failure Code(s): N17.9 - Acute kidney failure, unspecified Status: Acute (2) Acute hyponatremia Code(s): E87.1 - Hypo-osmolality and hyponatremia Status: Acute (3) Acute hepatic encephalopathy Code(s): K72.00 - Acute and subacute hepatic failure without coma Status: Acute (4) Cirrhosis Code(s): K74.60 - Unspecified cirrhosis of liver Status: Acute - Attending Attestation patient was seen and examined. Agree with above assessment and plan. Patient's family understands that with progressive renal failure, if he is taken from the hospital, the patient may of renal complications. <Pineda Beckham - Last Filed: 02/04/18 11:09>
--- NOTE | 2018-02-03 14:55 | P.DS ---
Date of admission: 01/29/18 23:33 Primary care physician: No Primary Care Physician Brief History from admission: This is a 47-year-old male with a PMH of Cirrhosis who was brought to the ER for AMS. Pt lives in [place], visiting [place] w/ and family. at bedside states pt noted to be more lethargic today, reports he is non-compliant w/ Lactulose, does not follow w/ GI doctor back home. Previous h/o Alcohol Abuse, however states he quit. Unable to obtain much history from patient due to AMS, however he is able to answer few questions. On arrival, BP 133/62, HR 76, O2 sat 100% on 2L NC, Afebrile. Hemoglobin 9.3, platelets 49, no previous labs for comparison. INR 1.8. Na 121. K+ 2.8. Lactic Acid 2.2. Ammonia 178. Total Bili 23.5. CT Head w/ small area low density medial right basal ganglia related to recent lacunar infarct, left cerebral infarct vs demyelination. DS: Diagnosis - Discharge Diagnosis (1) Hepatic encephalopathy Status: Acute (2) Cirrhosis Status: Acute (3) Hyponatremia Status: Acute (4) Hypokalemia Status: Acute (5) Thrombocytopenia Status: Acute DS: Medications - Discharge Medications Prescriptions: lactulose 30 ml PO Q8H 30 Days #2700 ml pentoxifylline 400 mg PO TID 30 Days #90 tab prednisolone sodium phosphate 20 mg PO BID 30 Days #120 tab propranolol 10 mg PO BID 30 Days #60 tab rifaximin [Xifaxan] 550 mg PO Q12HR 30 Days tab DS: Summary Hospital Course: Mr. Kilpatrick is a 47 year old male with a history of Alcoholism, cirrhosis who was admitted to the hospital due to declining mental status, lethargy, confusion. He was previously admitted and treated at [facility] and was discharged on prednisone. His last alcohol use was about 6-8 weeks ago. On arrival, BP 133/62, HR 76, O2 sat 100% on 2L NC, Afebrile. Hemoglobin 9.3, platelets 49, no previous labs for comparison. INR 1.8. Na 121. K+ 2.8. Lactic Acid 2.2. Ammonia 178. Total Bili 23.5. CT Head w/ small area low density medial right basal ganglia related to recent lacunar infarct, left cerebral infarct vs demyelination. He is DNR. Acute alcoholic hepatitis Alcoholic cirrhosis - Maddrey's Discrimination Function score increased from 61 to 94.7 2017. - GI is following. Continue Pentoxifylline 400mg TID. - Continue prednisolone 20mg BID with a goal to continue for 28 days and taper off. - Continue Lactulose 30mL Q8hrs to achieve 2-3 loose bowel movements. - Continue Rifaximin 550mg Q12hrs. - Not a candidate for Liver transplantation due to alcohol use within 6-8 weeks. - Palliative care following. - Mentation is Clinically improving. However, MDF is worse Mild Acute kidney injury Hyponatremia Hypokalemia - Creatinine 1.07 ==> 1.88 ==> 2.35 - Avoid nephrotoxins. Could be pre-renal but type 2 hepatorenal is also a possibility. - Hyponatremia is worsening Na 125 --> 121 on 02/03/2018. - Potassium is also elevated to 5.0. - Nephrology following. Patient is receiving Albumin. Likely recent CVA - CT head shows recent right basal ganglia lacunar infarction. - Neurology consulted. Due to low platelets and hepatitis, maybe difficult to initiate any anti-platelets. Thrombocytopenia - Plt count 48K. Likely due to alcoholism and liver disease. - PLT count is improved from 48K ==> 56K. GERD - Protonix 40mg Qday. Full code. SCDs. Remains in poor prognosis. Discussed with Palliative care. If patient is able to sit in a wheelchair, he maybe able to take a flight to his home state [place]. Patient was evaluated by PT and Palliative care. Patient was able to sit in a wheelchair. I discussed with Nephrology regarding worsening sodium as well as creatinine. Also discussed at length with patient's - she understands that prognosis is very poor. We went over all the prescriptions. She verbalized understanding regarding acute alcoholic hepatitis as well as worsening kidney function. Patient was subsequently discharged home. plans to take patient to [place] and arrangement medical attention in [place] on Tuesday02/06/2018. - Time Spent with Patient Total time spent providing and/or coordinating discharge services: Greater than 30 minutes - Quality: VTE Deep Vein Thrombosis/Pulmonary Embolism Present on Admission: No Exam Vital signs: Vital Signs 02/02/18 16:00 02/02/18 16:01 Temperature 98 F Pulse Rate 61 Respiratory Rate 19 Blood Pressure 68/43 L Pulse Oximetry 99 Intake & Output 02/02/18 02/03/18 02/03/18 18:59 06:59 18:59 Intake Total 1000 / 1000 1580 / 1580 Output Total 400 / 400 1000 / 1000 Balance 600 / 600 580 / 580 Weight 89 kg Intake: IV 1000 / 1000 1100 / 1100 NS Inj 1,000 ML @ 100 mls/hr IV 1000 / 1000 1000 / 1000 .CONT .Q10H DELANO Rx#:[id number] Flexbumin 25% Inj 100 ML @ 60 100 / 100 mls/hr IV.SIG Q12H DELANO Rx#: [id number] Oral 480 / 480 Output: Urine 1000 / 1000 Urine Amount (Catheter) 400 / 400 Indwelling Urethral Catheter 400 / 400 Other: Date of Last Bowel Movement 02/01/18 02/02/18 # Bowel Movements 1 Results Procedures completed during hospitalization: none Labs on day of discharge: Labs from last 24 hours 02/03/18 02/03/18 02/03/18 13:12 04:37 04:37 PT 29.4 H INR 2.9 Sodium 121 L* Potassium 5.0 Chloride 91 L Carbon Dioxide 14.3 L Anion Gap 16 H BUN 114 H Creatinine 2.35 H Estimated GFR 30 L Random Glucose 110 H Osmolality 293 Calcium 8.3 L Total Bilirubin 23.7 H AST 84 H ALT 95 H Alkaline Phosphatase 98 Total Protein 3.9 L Albumin 2.0 L Ur Random Creatinine Ur Random Sodium 02/02/18 15:50 PT INR Sodium Potassium Chloride Carbon Dioxide Anion Gap BUN Creatinine Estimated GFR Random Glucose Osmolality Calcium Total Bilirubin AST ALT Alkaline Phosphatase Total Protein Albumin Ur Random Creatinine 114 Ur Random Sodium 10 - Impressions ITS Impressions Chest X-Ray 01/29/18 20:46 CONCLUSION: No acute cardiopulmonary process. Head CT 01/29/18 20:46 CONCLUSION: 1. Small area of low density in the medial right basal ganglia likely related to a recent lacunar infarct. 2. Mild area of decreased density in the left cerebral white matter representing either a prior lacunar infarct or an area of demyelination. 3. No acute areas of hemorrhage or mass effect is seen. Carotid Doppler Study 01/30/18 00:00 CONCLUSION: No evidence of flow-limiting carotid stenosis. Head MRI 01/31/18 00:00 CONCLUSION: 1. No evidence of acute infarction. 2. Signal abnormalities in the left moore radiata and right striatum suggest areas of gliosis or old lacunar infarcts. 3. No focal areas of abnormal enhancement. Abdomen/Bladder Ultrasound 02/02/18 00:00 CONCLUSION: 1. Negative renal sonogram. 2. No evidence of hydronephrosis Discharge Plan - Discharge Disposition Patient Disposition: 01 Discharge Home - Discharge Condition Condition: Stable - Discharge Order Discharge Orders: Discharge Order (Routine); Ordered 02/03/18 Ordered By: Mariaelena Cid - Discharge Details Anticipated Discharge Date: 02/03/18 - Physicians Team Primary Care Provider: Primary Care Hollisi,Lala Attending Provider: Mariaelena Cid Other Providers: Mike Martel MD ; Killian Dyer MD ; Rajinder Melendez MD, PhD ; Jorge Alberto Klein MD ; Pineda Beckham MD
== END 2018-02-03 15:55 | disposition home or self-care (01) ==
LOC: NEPE 20:19 → NEDA 23:33 → HIMC 01-30 18:38
PROVIDERS: ADMIT Hospitalist; ATTEND Hospitalist
DX: E72.20 Disorder of urea cycle metabolism, unspecified; Y90.0 Blood alcohol level of less than 20 mg/100 ml; N17.9 Acute kidney failure, unspecified; E88.09 Other disorders of plasma-protein metabolism, not elsewhere classified; R41.82 Altered mental status, unspecified; Z86.73 Personal history of transient ischemic attack (TIA), and cerebral infarction without residual deficits; D64.9 Anemia, unspecified; E87.6 Hypokalemia; K70.30 Alcoholic cirrhosis of liver without ascites; Z66 Do not resuscitate; K70.40 Alcoholic hepatic failure without coma; Z91.14 Patient's other noncompliance with medication regimen; I95.9 Hypotension, unspecified; F10.20 Alcohol dependence, uncomplicated; Z91.19 Patient's noncompliance with other medical treatment and regimen; K21.9 Gastro-esophageal reflux disease without esophagitis; K70.10 Alcoholic hepatitis without ascites; R79.1 Abnormal coagulation profile; D69.6 Thrombocytopenia, unspecified; E87.2 Acidosis; R33.9 Retention of urine, unspecified; E87.1 Hypo-osmolality and hyponatremia